=== PATIENT | male | born 1970 | race Caucasian/White ===

== ENCOUNTER 2017-05-26 19:44 | Emergency (ER) | payer OTHER ==
[2017-05-26 19:54] VITALS: BP 142/73; BMI 37.6
--- NOTE | 2017-05-26 20:30 | DR.GENAD ---
HPI - PCP Primary Care Physician: MARQUEZ - Complaint/Symptoms Chief Complaint Doctors Comments: Patient presents with complaint that he vomited x once today with possible tinge of blood, He has a history hepatic failure he is followed by Dr Smith but has not seen him recently Chief Complaint:: NV X 1 TODAY, STATES I THINK IT WAS BLOODY, Self Treatment fo Chief Complaint: NONE - Source History Provided: Patient - Mode of Arrival Mode of Arrival: Ambulatory - Timing Onset of Chief Complaint: 05/26/17 PMH - PMH Past Medical History: Yes Past Medical History: Arthritis, Asthma, GERD, Kidney Stones Past Surgical History: No Surgical History: No History - Family History History of Family Medical Conditions: Yes Family Medical History: Diabetes Mellitus, Hypertension - Social History Does patient currently use any type of tobacco product: Yes Have you used tobacco products in the last 12 months: Yes Type of Tobacco Use: Cigarettes Alcohol Use: None Do you use any recreational Drugs:: No Lives With: Spouse Lives Where: Home - infectious screening In the last 2 months have you had wt loss of >10#?: NO Have you had fever, night sweats or hemotysis?: No Have you traveled outside the country in the last 6 months?: No Isolation: Standard ROS - Review of Systems Eyes: No Symptoms Reported, See HPI ENTM: No Symptoms Reported Respiratoy: No Symptoms Reported Cardiovascular: No Symptoms Reported Gastrointestinal/Abdominal: No Symptoms Reported Genitourinary: No Symptoms Reported Neurological: No Symptoms Reported Musculoskeletal: No Symptoms Reported Integumentary: No Symptoms Reported Hematologic/Lymphatic: No Symptoms Reported Endocrine: No Symptoms Reported Psychiatric: No Symptoms Reported All Other Systems: Reviewed and Negative PE - Vital Signs Vitals: Temperature 98.0 F Pulse Rate 75 Respiratory Rate 16 Blood Pressure [Right Arm] 137/81 Blood Pressure [Left Arm] 149/81 Blood Pressure 142/73 O2 Sat by Pulse Oximetry 100 - General Limitations: No Limitations General Appearance: Alert, In No Apparent Distress - Head Head Exam: Normal Inspection, Atraumatic - Eyes Eye exam: Normal Appearance, PERRL, EOMI - ENT ENT Exam: Normal Exam, Normal Oropharynx External Ear Exam: Normal External Inspection TM/Canal Exam: Bilateral Normal Nose Exam: Normal Nose Exam Mouth Exam: Normal Inspection Throat Exam: Normal Inspection - Neck Neck Exam: Normal Inspection, Full ROM - Chest Chest Inspection: Normal Inspection - Respiratory Respiratory Exam: Normal Lung Sounds Bilat Respiratory Exam: Bilateral Clear to Auscultation - Cardiovascular Cardiovascular Exam: Regular Rate, Normal Rhythm - Abdominal Exam Abdominal Exam: Normal Inspection, Normal Bowel Sounds Abdominal Tenderness: negative: RUQ, RLQ, LUQ, LLQ, Epigastrium, Suprapubic, Diffuse, Mild, Moderate, Severe, Other - Extremities Extremities Exam: Normal Inspection, Full ROM - Back Back Exam: Normal Inspection - Neurologic Neurological Exam: Alert, Oriented X3, CN II-XII Intact - Psychiatric Psychiatric Exam: Normal Affect - Skin Skin Exam: Warm, Dry ROR - Labs Reviewed Laboratory Results Reviewed?: Yes (ammonia 219) Result Diagrams: 05/26/17 20:38 05/26/17 20:38 Laboratory: WBC 4.8 X10^3/uL (3.6-10.0) 05/26/17 20:38 RBC 2.95 X10^6/uL (4.7-6.0) L 05/26/17 20:38 Hgb 10.6 g/dL (13.5-18.0) L 05/26/17 20:38 Hct 30.2 % (42.0-54.0) L 05/26/17 20:38 MCV 102.3 fL (80.0-100.0) H 05/26/17 20:38 MCH 35.9 pg (27.0-34.0) H 05/26/17 20:38 MCHC 35.1 g/dL (33.0-35.0) H 05/26/17 20:38 RDW 17.7 % (11.6-16.5) H 05/26/17 20:38 Plt Count 57 X10^3/uL (150.0-450.0) L 05/26/17 20:38 Plt Count Comment Cancelled 05/26/17 20:38 MPV 8.5 fL (7.4-11.0) 05/26/17 20:38 Neut % 52.0 % (42.0-75.0) 05/26/17 20:38 Lymph % 33.2 % (21.0-51.0) 05/26/17 20:38 [place] % 8.7 % (0.0-13.0) 05/26/17 20:38 Eos % 4.8 % (0.9-2.9) H 05/26/17 20:38 Baso % 1.3 % (0.2-1.0) H 05/26/17 20:38 Neut # 2.5 x10^3/uL (2.2-4.8) 05/26/17 20:38 Lymph # 1.6 X10^3/uL (1.3-2.9) 05/26/17 20:38 [place] # 0.4 x10^3/uL (0.3-0.8) 05/26/17 20:38 Eos # 0.2 x10^3/uL (0.0-0.2) 05/26/17 20:38 Baso # 0.1 X10^3/uL (0.0-0.1) 05/26/17 20:38 Absolute Nucleated RBC 0.1 /100WBC 05/26/17 20:38 Nucleated RBCs Cancelled 05/26/17 20:38 Atypical Lymphocytes Cancelled 05/26/17 20:38 Blast Cells Cancelled 05/26/17 20:38 Smudge Cells Cancelled 05/26/17 20:38 Toxic Granulation Cancelled 05/26/17 20:38 Dohle Bodies Cancelled 05/26/17 20:38 Dilip Rods Cancelled 05/26/17 20:38 Plt Clumps, EDTA Cancelled 05/26/17 20:38 Giant Platelets Cancelled 05/26/17 20:38 Plt Morphology Comment Cancelled 05/26/17 20:38 RBC Morphology Cancelled 05/26/17 20:38 Dimorphic RBCs Cancelled 05/26/17 20:38 Polychromasia Cancelled 05/26/17 20:38 Hypochromasia Cancelled 05/26/17 20:38 Poikilocytosis Cancelled 05/26/17 20:38 Basophilic Stippling Cancelled 05/26/17 20:38 Anisocytosis Cancelled 05/26/17 20:38 Microcytosis Cancelled 05/26/17 20:38 Macrocytosis Cancelled 05/26/17 20:38 Spherocytes Cancelled 05/26/17 20:38 Pappenheimer Bodies Cancelled 05/26/17 20:38 Sickle Cells Cancelled 05/26/17 20:38 Target Cells Cancelled 05/26/17 20:38 Tear Drop Cells Cancelled 05/26/17 20:38 Ovalocytes Cancelled 05/26/17 20:38 Stomatocytes Cancelled 05/26/17 20:38 Helmet Cells Cancelled 05/26/17 20:38 [employer] Bodies Cancelled 05/26/17 20:38 [place] Rings Cancelled 05/26/17 20:38 Orgas Cells Cancelled 05/26/17 20:38 Crenated Cell Cancelled 05/26/17 20:38 Acanthocytes (Spur) Cancelled 05/26/17 20:38 Rouleaux Cancelled 05/26/17 20:38 Schistocytes Cancelled 05/26/17 20:38 Sodium 139 mmol/L (136-145) 05/26/17 20:38 Corrected Sodium TNP 05/26/17 20:38 Potassium 4.2 mmol/L (3.5-5.1) 05/26/17 20:38 Chloride 110 mmol/L (98-107) H 05/26/17 20:38 Carbon Dioxide 22.5 mmol/L (21-32) 05/26/17 20:38 BUN 12 mg/dL (7-18) 05/26/17 20:38 Creatinine 1.73 mg/dL (0.70-1.30) H 05/26/17 20:38 Est GFR (MDRD) Af Amer 55 (>60) L 05/26/17 20:38 Est GFR (MDRD) Non-Af 45 (>60) L 05/26/17 20:38 Glucose 106 mg/dL (65-99) H 05/26/17 20:38 Calcium 8.5 mg/dL (8.5-10.1) 05/26/17 20:38 Corrected Calcium 9.8 mg/dL (8.5-10.1) 05/26/17 20:38 Total Bilirubin 3.60 mg/dL (0.2-1.0) H 05/26/17 20:38 AST 69 Units/L (15-37) H 05/26/17 20:38 ALT 30 Units/L (12-78) 05/26/17 20:38 Alkaline Phosphatase 222 Units/L (46-116) H 05/26/17 20:38 Ammonia 219 umol/L (11-32) H 05/26/17 20:38 Total Protein 7.0 g/dL (6.4-8.2) 05/26/17 20:38 Albumin 2.4 g/dL (3.4-5.0) L 05/26/17 20:38 Globulin 4.6 g/dL (2.5-4.5) H 05/26/17 20:38 Albumin/Globulin Ratio 0.5 Ratio (1.1-2.1) L 05/26/17 20:38 - EKG [place]: Normal Rhythm: NSR Block: None Hypertrophy: None ST: Normal - Diagnosis Discharge Problem: Chronic liver failure Qualifiers: Hepatic coma status: without hepatic coma Qualified Code(s): K72.10 - Chronic hepatic failure without coma - Discharge Plan Condition: Stable - Follow ups/Referrals Follow ups/Referrals: TANYA MARQUEZ [Primary Care Provider] - 3 days - Instructions
[2017-05-26 21:01] LABS: AMMONIA 219 umol/L (11-32)
[2017-05-26 21:02] LABS: ALANINE AMINOTRANSFERASE 30 Units/L (12-78); ALBUMIN 2.4 g/dL (3.4-5.0); ALKALINE PHOSPHATASE 222 Units/L (46-116); ASPARTATE AMINO TRANSFERASE 69 Units/L (15-37); BLOOD UREA NITROGEN 12 mg/dL (7-18); CALCIUM 8.5 mg/dL (8.5-10.1); CARBON DIOXIDE 22.5 mmol/L (21-32); CHLORIDE 110 mmol/L (98-107); COR CA(FOR HYPOALB) 9.8 mg/dL (8.5-10.1); CREATININE 1.73 mg/dL (0.70-1.30); SODIUM 139 mmol/L (136-145); eGFR BLACK RACES 55 (>60); eGFR NON BLACK RACES 45 (>60)
[2017-05-26 21:16] LABS: BASOPHILS # (AUTO) 0.1 X10^3/uL (0.0-0.1); BASOPHILS % (AUTO) 1.3 % (0.2-1.0); EOSINOPHILS # (AUTO) 0.2 x10^3/uL (0.0-0.2); EOSINOPHILS % (AUTO) 4.8 % (0.9-2.9); HEMATOCRIT 30.2 % (42.0-54.0); HEMOGLOBIN 10.6 g/dL (13.5-18.0); LYMPHOCYTES # (AUTO) 1.6 X10^3/uL (1.3-2.9); LYMPHOCYTES % (AUTO) 33.2 % (21.0-51.0); MEAN CORPUSCULAR HEMOGLOBIN 35.9 pg (27.0-34.0); MEAN CORPUSCULAR HGB CONC 35.1 g/dL (33.0-35.0); MEAN CORPUSCULAR VOLUME 102.3 fL (80.0-100.0); MEAN PLATELET VOLUME 8.5 fL (7.4-11.0); MONOCYTES # (AUTO) 0.4 x10^3/uL (0.3-0.8); MONOCYTES % (AUTO) 8.7 % (0.0-13.0); NEUTROPHILS # (AUTO) 2.5 x10^3/uL (2.2-4.8); RED BLOOD COUNT 2.95 X10^6/uL (4.7-6.0); RED CELL DISTRIBUTION WIDTH 17.7 % (11.6-16.5); WHITE BLOOD COUNT 4.8 X10^3/uL (3.6-10.0)
[2017-05-26 21:17] LABS: PLATELET COUNT 57 X10^3/uL (150.0-450.0)
[2017-05-26] MEDS ORDERED: CHRONULAC PO ONE (21:25)
[2017-05-27] MEDS ORDERED: CHRONULAC PO SCH (09:00)
== END 2017-05-26 22:40 | disposition home or self-care (01) ==
LOC: ER 19:57
DX: K72.10 Chronic hepatic failure without coma (principal)
CPT/HCPCS: 36415; 80053; 82140; 85025; 99282

== ENCOUNTER 2017-06-02 22:29 | Emergency (ER) | payer OTHER ==
[2017-06-02 22:37] VITALS: BP 117/71; BMI 34.9
--- NOTE | 2017-06-02 23:27 | DR.GENAD ---
HPI - PCP Primary Care Physician: marquez - Complaint/Symptoms Chief Complaint Doctors Comments: Patient states that fell to floor while at home and injured his left chest wall. He reports to pain to palpation Chief Complaint:: pain in left chest wall - Source History Provided: Patient - Mode of Arrival Mode of Arrival: Ambulatory - Timing Onset of Chief Complaint: 05/30/17 PMH - PMH Past Medical History: Yes Past Medical History: Arthritis, Asthma, GERD, Kidney Stones, Liver Disease Past Surgical History: Yes Surgical History: No History - Family History History of Family Medical Conditions: Yes Family Medical History: Diabetes Mellitus, Hypertension - Social History Does patient currently use any type of tobacco product: No Have you used tobacco products in the last 12 months: No Type of Tobacco Use: Cigarettes Does any household member use tobacco: No Alcohol Use: None Do you use any recreational Drugs:: No Lives With: Family Lives Where: Home - infectious screening In the last 2 months have you had wt loss of >10#?: NO Have you had fever, night sweats or hemotysis?: No Have you traveled outside the country in the last 6 months?: No Isolation: Standard ROS - Review of Systems Eyes: No Symptoms Reported ENTM: No Symptoms Reported Respiratoy: No Symptoms Reported Cardiovascular: No Symptoms Reported Gastrointestinal/Abdominal: No Symptoms Reported Genitourinary: No Symptoms Reported Neurological: No Symptoms Reported Musculoskeletal: No Symptoms Reported Integumentary: No Symptoms Reported Hematologic/Lymphatic: No Symptoms Reported Endocrine: No Symptoms Reported Psychiatric: No Symptoms Reported All Other Systems: Reviewed and Negative PE - Vital Signs Vitals: Temperature 97.5 F Pulse Rate 81 Respiratory Rate 17 Blood Pressure [Right Arm] 137/81 Blood Pressure [Left Arm] 149/81 Blood Pressure 117/71 O2 Sat by Pulse Oximetry 99 - General Limitations: No Limitations General Appearance: Alert, In No Apparent Distress - Head Head Exam: Normal Inspection, Atraumatic - Eyes Eye exam: Normal Appearance, PERRL, EOMI - ENT ENT Exam: Normal Exam External Ear Exam: Normal External Inspection TM/Canal Exam: Bilateral Normal Nose Exam: Normal Nose Exam Mouth Exam: Normal Inspection Throat Exam: Normal Inspection - Neck Neck Exam: Normal Inspection, Trachea Midline - Chest Chest Inspection: Normal Inspection - Respiratory Respiratory Exam: Normal Lung Sounds Bilat Respiratory Exam: Bilateral Clear to Auscultation - Cardiovascular Cardiovascular Exam: Regular Rate, Normal Rhythm - Abdominal Exam Abdominal Exam: Normal Inspection, Normal Bowel Sounds Abdominal Tenderness: negative: RUQ, RLQ, LUQ, LLQ, Epigastrium, Suprapubic, Diffuse, Mild, Moderate, Severe, Other - Extremities Extremities Exam: Normal Inspection, Full ROM - Back Back Exam: Normal Inspection, Full ROM - Neurologic Neurological Exam: Alert, Oriented X3, CN II-XII Intact - Psychiatric Psychiatric Exam: Normal Affect, Normal Mood - Skin Skin Exam: Warm, Dry, Intact ROR - XRAY XRAY Interpreted by: Radiologist (Chest: negative) - Diagnosis Discharge Problem: Contusion of left chest wall Qualifiers: Encounter type: initial encounter Qualified Code(s): S20.212A - Contusion of left front wall of thorax, initial encounter - Discharge Plan Condition: Stable - Follow ups/Referrals Follow ups/Referrals: TANYA MARQUEZ [Primary Care Provider] - 3 days - Instructions
--- NOTE | 2017-06-03 00:02 | RAD ---
HISTORY: left rib pain Study: Two views of the chest Comparison: None Findings: The trachea is midline. The cardiac silhouette is unremarkable. There is bandlike atelectasis versus scarring in the left lower lobe. The remaining lungs are clear without focal infiltrate or effusion. The bony thorax is unremarkable. IMPRESSION: 1. No acute cardiopulmonary disease. Reported By:
== END 2017-06-03 00:17 | disposition home or self-care (01) ==
LOC: ER 22:44
DX: S20.212A Contusion of left front wall of thorax, initial encounter (principal); W19.XXXA Unspecified fall, initial encounter; Y92.009 Unspecified place in unspecified non-institutional (private) residence as the place of occurrence of the external cause
CPT/HCPCS: 71020; 99282

== ENCOUNTER 2017-06-17 08:54 | Emergency (ER) | payer OTHER ==
[2017-06-17 09:04] VITALS: BP 140/67; BMI 34.9
[2017-06-17] MEDS ORDERED: TORADOL 60 MG VIAL ONE (09:19)
[2017-06-17] MEDS ORDERED: TORADOL 60 MG VIAL IM ONE (09:19)
--- NOTE | 2017-06-17 09:26 | DR.EXTPAIN ---
HPI - Time seen Time seen: 09:17 - PCP Primary Care Physician: JIMMY CALZADA - Complaint/Symptoms Chief Complaint Doctor Comments: Patient c/o right knee pain s/p falling to the floor on last night. He admits to pain being sharp, severity 10, modifying factor ambulation Chief Complaint:: PT C/O HAVING A NAIL IN THE FLOOR AT HOME AND IT GRABBED AHOLD OF HIS SOCK LAST NIGHT AND HE HIT THE FLOOR AND HE IS C/O RIGHT KNEE PAIN AND BRUISING.. - Source History Provided: Patient - Mode of arrival Mode of Arrival: Ambulatory - Timing Onset of Chief Complaint: 06/16/17 PMH - PMH Past Medical History: Yes Past Medical History: Arthritis, Asthma, GERD, Kidney Stones, Liver Disease Past Medical History Comment: CIROSIS OF THE LIVER AND HE NEEDS A LIVER TRANSPLANT. Past Surgical History: No Surgical History: No History - Family History History of Family Medical Conditions: No Family Medical History: Diabetes Mellitus, Hypertension - Social History Does patient currently use any type of tobacco product: Yes Have you used tobacco products in the last 12 months: Yes Type of Tobacco Use: Cigarettes Does any household member use tobacco: No Alcohol Use: None Do you use any recreational Drugs:: No Lives With: Family Lives Where: Home - infectious screening In the last 2 months have you had wt loss of >10#?: NO Have you had fever, night sweats or hemotysis?: No Have you traveled outside the country in the last 6 months?: No Isolation: Standard ROS - Review of Systems Eyes: No Symptoms Reported ENTM: No Symptoms Reported Respiratoy: No Symptoms Reported Cardiovascular: No Symptoms Reported Gastrointestinal/Abdominal: No Symptoms Reported Genitourinary: No Symptoms Reported Neurological: No Symptoms Reported Musculoskeletal: Knee (right oaub) Integumentary: No Symptoms Reported Hematologic/Lymphatic: No Symptoms Reported Endocrine: No Symptoms Reported Psychiatric: No Symptoms Reported All Other Systems: Reviewed and Negative PE - Vital Signs Vitals: Temperature 97.6 F Pulse Rate 67 Respiratory Rate 18 Blood Pressure [Right Arm] 137/81 Blood Pressure [Left Arm] 149/81 Blood Pressure 140/67 O2 Sat by Pulse Oximetry 100 - General Limitations: No Limitations General Appearance: Alert, In Distress - Head Head Exam: Normal Inspection, Atraumatic - Eyes Eye exam: Normal Appearance, PERRL, EOMI - ENT ENT Exam: Normal Exam - Neck Neck Exam: Normal Inspection, Full ROM - Chest Chest Inspection: Normal Inspection - Respiratory Respiratory Exam: Normal Lung Sounds Bilat Respiratory Exam: Bilateral Clear to Auscultation - Cardiovascular Cardiovascular Exam: Regular Rate, Normal Rhythm - Abdominal Exam Abdominal Exam: Normal Inspection, Normal Bowel Sounds Abdominal Tenderness: negative: RUQ, RLQ, LUQ, LLQ, Epigastrium, Suprapubic, Diffuse, Mild, Moderate, Severe, Other - Extremities Extremities Exam: Normal Inspection, Full ROM - Upper Extremities Shoulder Exam: Normal Inspection Arm Exam: negative: Normal Inspection, Full ROM, Tenderness, Swelling, Abrasion , Laceration, Ecchymosis, Deformity, Crepitus, Erythema, Other Elbow Exam: Normal Inspection Forearm Exam: Normal Inspection, Full ROM Hand Exam: Normal Inspection Neuromotor Exam: Normal Exam Neurosensory Exam: Normal Exam Hand Tendon Exam: Flexor Digitorium Profundus (Location) Upper Ext. Vascular Exam: Capillary Refill, Radial Pulse - Lower Extremities Hip/Pelvis Exam: Normal Inspection, Full ROM Upper Leg Exam: Normal Inspection, Full ROM Knee Exam: Swelling. negative: Laceration, Erythema Lower Leg Exam: Normal Inspection Ankle Exam: Normal Inspection, Full ROM Foot/Toe Exam: Normal Inspection, Full ROM Neurovascular/Tendon Exam: Normal Capillary Refill Gait Exam: Observed and Normal - Back Back Exam: Normal Inspection, Full ROM - Neurological Neurological Exam: Alert, Oriented X3, CN II-XII Intact - Psychiatric Psychiatric Exam: Normal Affect - Skin Skin Exam: Warm, Dry, Intact Type of Lesion: Rash Distribution: Generalized Description: Size ROR - XRAY XRAY Interpreted by: Self (knee contusion) - Diagnosis Discharge Problem: Contusion of knee, right Qualifiers: Encounter type: initial encounter Qualified Code(s): S80.01XA - Contusion of right knee, initial encounter - Discharge Plan Condition: Stable - Follow ups/Referrals Follow ups/Referrals: NFD,None [Primary Care Provider] - 3 days - Instructions
--- NOTE | 2017-06-17 10:36 | RAD ---
HISTORY: Fall this a.m.. Patient complains of right knee pain Study: Two-view right knee Comparison: 11/27/2015 Findings: No fracture or dislocation is seen. There is no significant joint effusion. Degenerative changes and chondromalacia of the patella are again identified. Articular spaces are well maintained. IMPRESSION: Degenerative changes and chondromalacia of the patella. No acute abnormality is seen. Reported By:
== END 2017-06-17 10:23 | disposition home or self-care (01) ==
LOC: ER 09:06
DX: S80.01XA Contusion of right knee, initial encounter (principal); M22.40 Chondromalacia patellae, unspecified knee; W45.8XXA Other foreign body or object entering through skin, initial encounter; Y92.9 Unspecified place or not applicable
CPT/HCPCS: 73560; 96372; 99282; J1885

== ENCOUNTER → 2017-06-30 | Outpatient (CLI) | payer OTHER ==
[2017-06-17 09:04] VITALS: BP 140/67
[2017-06-30 11:18] LABS: ALBUMIN 2.4 g/dL (3.4-5.0); CALCIUM 8.5 mg/dL (8.5-10.1); COR CA(FOR HYPOALB) 9.8 mg/dL (8.5-10.1); CREATININE 1.62 mg/dL (0.70-1.30); TOTAL PROTEIN 7.3 g/dL (6.4-8.2)
[2017-06-30 11:33] LABS: BASOPHILS # (AUTO) 0.1 X10^3/uL (0.0-0.1); BASOPHILS % (AUTO) 1.2 % (0.2-1.0); EOSINOPHILS # (AUTO) 0.2 x10^3/uL (0.0-0.2); EOSINOPHILS % (AUTO) 4.9 % (0.9-2.9); HEMATOCRIT 34.2 % (42.0-54.0); HEMOGLOBIN 11.9 g/dL (13.5-18.0); LYMPHOCYTES # (AUTO) 1.5 X10^3/uL (1.3-2.9); LYMPHOCYTES % (AUTO) 35.5 % (21.0-51.0); MEAN CORPUSCULAR HEMOGLOBIN 36.3 pg (27.0-34.0); MEAN CORPUSCULAR HGB CONC 34.9 g/dL (33.0-35.0); MEAN CORPUSCULAR VOLUME 103.9 fL (80.0-100.0); MEAN PLATELET VOLUME 9.2 fL (7.4-11.0); MONOCYTES # (AUTO) 0.3 x10^3/uL (0.3-0.8); MONOCYTES % (AUTO) 7.6 % (0.0-13.0); NEUTROPHILS # (AUTO) 2.2 x10^3/uL (2.2-4.8); NEUTROPHILS % (AUTO) 50.8 % (42.0-75.0); PLATELET COUNT 77 X10^3/uL (150.0-450.0); RED BLOOD COUNT 3.29 X10^6/uL (4.7-6.0); RED CELL DISTRIBUTION WIDTH 17.1 % (11.6-16.5); WHITE BLOOD COUNT 4.3 X10^3/uL (3.6-10.0)
[2017-06-30 11:58] LABS: PLATELET MORPHOLOGY COMMENT NORMAL (NORMAL)
== END ==
LOC: LAB 10:41
PROVIDERS: ATTEND Internal Medicine Gastroenterology
DX: K74.69 Other cirrhosis of liver (principal)
CPT/HCPCS: 36415; 80053; 82140; 85025

== ENCOUNTER 2017-07-10 14:44 | Emergency (ER) | payer OTHER ==
[2017-07-10 15:00] VITALS: BP 96/68; BMI 36.9
--- NOTE | 2017-07-10 16:12 | DR.GENAD ---
HPI - PCP Primary Care Physician: TANYA MARQUEZ - Complaint/Symptoms Chief Complaint:: PT STATES HE HAS A FEVER THAT STARTED LAST NIGHT AND HE IS ACHING ALL OVER. Self Treatment fo Chief Complaint: PTS STATES HE TOOK TWO EXTRA STRENGTH TYLENOL THIS MORNING ABOUT 8AM. PTS STATES FEVER WAS 99.1 BEFORE HE TOOK TYLENOL - Source History Provided: Patient - Mode of Arrival Mode of Arrival: Ambulatory - Timing Onset of Chief Complaint: 07/09/17 PMH - PMH Past Medical History: Yes Past Medical History: Arthritis, Asthma, Cirrhosis, GERD, Kidney Stones, Liver Disease Past Surgical History: No Surgical History: No History - Family History History of Family Medical Conditions: Yes Family Medical History: Diabetes Mellitus, Hypertension - Social History Does patient currently use any type of tobacco product: Yes Have you used tobacco products in the last 12 months: Yes Type of Tobacco Use: Cigarettes How many years tobacco product used: 30 Does any household member use tobacco: No Alcohol Use: None Do you use any recreational Drugs:: No Lives With: Spouse Lives Where: Home - infectious screening In the last 2 months have you had wt loss of >10#?: NO Have you had fever, night sweats or hemotysis?: No Have you traveled outside the country in the last 6 months?: No Isolation: Standard ROS - Review of Systems Eyes: No Symptoms Reported, Eye Pain ENTM: Hearing Loss Cardiovascular: No Symptoms Reported Gastrointestinal/Abdominal: No Symptoms Reported Genitourinary: No Symptoms Reported Neurological: No Symptoms Reported Musculoskeletal: No Symptoms Reported Integumentary: No Symptoms Reported Hematologic/Lymphatic: No Symptoms Reported Endocrine: No Symptoms Reported Psychiatric: No Symptoms Reported All Other Systems: Reviewed and Negative PE - Vital Signs Vitals: Temperature 98.6 F Pulse Rate 90 Respiratory Rate 18 Blood Pressure [Right Arm] 137/81 Blood Pressure [Left Arm] 149/81 Blood Pressure 96/68 O2 Sat by Pulse Oximetry 98 - General Limitations: No Limitations General Appearance: Alert, In No Apparent Distress - Head Head Exam: Normal Inspection, Atraumatic - Eyes Eye exam: Normal Appearance, PERRL, EOMI - ENT ENT Exam: Mucous Membranes Dry External Ear Exam: Normal External Inspection TM/Canal Exam: Bilateral Normal Nose Exam: Normal Nose Exam Mouth Exam: Normal Inspection Throat Exam: Normal Inspection - Neck Neck Exam: Normal Inspection - Chest Chest Inspection: Normal Inspection - Respiratory Respiratory Exam: Normal Lung Sounds Bilat Respiratory Exam: Bilateral Clear to Auscultation - Cardiovascular Cardiovascular Exam: Regular Rate, Normal Rhythm - Abdominal Exam Abdominal Exam: Normal Inspection Abdominal Tenderness: negative: RUQ, RLQ, LUQ, LLQ, Epigastrium, Suprapubic, Diffuse, Mild, Moderate, Severe, Other - Extremities Extremities Exam: Normal Inspection, Full ROM - Back Back Exam: Normal Inspection, Full ROM - Neurologic Neurological Exam: Alert, Oriented X3, CN II-XII Intact - Psychiatric Psychiatric Exam: Normal Affect - Skin Skin Exam: Warm, Dry, Intact Course - Treatment Treatment: IVH - Reevaluation 1st: Improved ROR - Labs Reviewed Result Diagrams: 07/10/17 16:53 07/10/17 16:53 Laboratory: WBC 9.9 X10^3/uL (3.6-10.0) 07/10/17 16:53 RBC 3.10 X10^6/uL (4.7-6.0) L 07/10/17 16:53 Hgb 11.3 g/dL (13.5-18.0) L 07/10/17 16:53 Hct 32.3 % (42.0-54.0) L 07/10/17 16:53 MCV 104.3 fL (80.0-100.0) H 07/10/17 16:53 MCH 36.5 pg (27.0-34.0) H 07/10/17 16:53 MCHC 35.0 g/dL (33.0-35.0) 07/10/17 16:53 RDW 16.9 % (11.6-16.5) H 07/10/17 16:53 Plt Count 59 X10^3/uL (150.0-450.0) L 07/10/17 16:53 Plt Count Comment Decreased (ADEQUATE) 07/10/17 16:53 MPV 9.1 fL (7.4-11.0) 07/10/17 16:53 Neut % 81.8 % (42.0-75.0) H 07/10/17 16:53 Lymph % 9.3 % (21.0-51.0) L 07/10/17 16:53 [place] % 8.4 % (0.0-13.0) 07/10/17 16:53 Eos % 0.1 % (0.9-2.9) L 07/10/17 16:53 Baso % 0.4 % (0.2-1.0) 07/10/17 16:53 Neut # 8.1 x10^3/uL (2.2-4.8) H 07/10/17 16:53 Lymph # 0.9 X10^3/uL (1.3-2.9) L 07/10/17 16:53 [place] # 0.8 x10^3/uL (0.3-0.8) 07/10/17 16:53 Eos # 0.0 x10^3/uL (0.0-0.2) 07/10/17 16:53 Baso # 0.0 X10^3/uL (0.0-0.1) 07/10/17 16:53 Absolute Nucleated RBC 0.1 /100WBC 07/10/17 16:53 Plt Morphology Comment Normal (NORMAL) 07/10/17 16:53 RBC Morphology Abnormal (NORMAL) 07/10/17 16:53 Hypochromasia Slight A 07/10/17 16:53 Poikilocytosis Slight A 07/10/17 16:53 Microcytosis Slight A 07/10/17 16:53 Sodium 137 mmol/L (136-145) 07/10/17 16:53 Corrected Sodium TNP 07/10/17 16:53 Potassium 4.4 mmol/L (3.5-5.1) 07/10/17 16:53 Chloride 105 mmol/L (98-107) 07/10/17 16:53 Carbon Dioxide 24.4 mmol/L (21-32) 07/10/17 16:53 BUN 19 mg/dL (7-18) H 07/10/17 16:53 Creatinine 2.75 mg/dL (0.70-1.30) H 07/10/17 16:53 Est GFR (MDRD) Af Amer 32 (>60) L 07/10/17 16:53 Est GFR (MDRD) Non-Af 26 (>60) L 07/10/17 16:53 Glucose 98 mg/dL (65-99) 07/10/17 16:53 Calcium 8.7 mg/dL (8.5-10.1) 07/10/17 16:53 Corrected Calcium 10.1 mg/dL (8.5-10.1) 07/10/17 16:53 Total Bilirubin 5.90 mg/dL (0.2-1.0) H 07/10/17 16:53 AST 89 Units/L (15-37) H 07/10/17 16:53 ALT 31 Units/L (12-78) 07/10/17 16:53 Alkaline Phosphatase 148 Units/L (46-116) H 07/10/17 16:53 Total Protein 7.0 g/dL (6.4-8.2) 07/10/17 16:53 Albumin 2.2 g/dL (3.4-5.0) L 07/10/17 16:53 Globulin 4.8 g/dL (2.5-4.5) H 07/10/17 16:53 Albumin/Globulin Ratio 0.5 Ratio (1.1-2.1) L 07/10/17 16:53 - Diagnosis Discharge Problem: Systemic viral illness, Gastroenteritis - Discharge Plan Condition: Stable - Follow ups/Referrals Follow ups/Referrals: TANYA MARQUEZ [Primary Care Provider] - 3 days - Instructions
[2017-07-10] MEDS ORDERED: ZOFRAN INJ 4 MG VIAL IVP ONE (16:39)
[2017-07-10] MEDS ORDERED: NS 1000 ML 1,000 ML IV ONE ×2 (16:39→17:46)
[2017-07-10] MEDS ORDERED: ZOFRAN INJ 4 MG VIAL ONE (16:41)
[2017-07-10] MEDS ORDERED: NS 1000 ML 1,000 ML ONE ×2 (16:41→17:47)
[2017-07-10 17:09] LABS: BASOPHILS % (AUTO) 0.4 % (0.2-1.0); EOSINOPHILS % (AUTO) 0.1 % (0.9-2.9); HEMATOCRIT 32.3 % (42.0-54.0); HEMOGLOBIN 11.3 g/dL (13.5-18.0); LYMPHOCYTES # (AUTO) 0.9 X10^3/uL (1.3-2.9); LYMPHOCYTES % (AUTO) 9.3 % (21.0-51.0); MEAN CORPUSCULAR HEMOGLOBIN 36.5 pg (27.0-34.0); MEAN CORPUSCULAR VOLUME 104.3 fL (80.0-100.0); MEAN PLATELET VOLUME 9.1 fL (7.4-11.0); MONOCYTES # (AUTO) 0.8 x10^3/uL (0.3-0.8); MONOCYTES % (AUTO) 8.4 % (0.0-13.0); NEUTROPHILS # (AUTO) 8.1 x10^3/uL (2.2-4.8); NEUTROPHILS % (AUTO) 81.8 % (42.0-75.0); PLATELET COUNT 59 X10^3/uL (150.0-450.0); RED CELL DISTRIBUTION WIDTH 16.9 % (11.6-16.5); WHITE BLOOD COUNT 9.9 X10^3/uL (3.6-10.0)
[2017-07-10 17:19] LABS: ALANINE AMINOTRANSFERASE 31 Units/L (12-78); ALBUMIN 2.2 g/dL (3.4-5.0); ALKALINE PHOSPHATASE 148 Units/L (46-116); ASPARTATE AMINO TRANSFERASE 89 Units/L (15-37); BLOOD UREA NITROGEN 19 mg/dL (7-18); CALCIUM 8.7 mg/dL (8.5-10.1); CARBON DIOXIDE 24.4 mmol/L (21-32); CHLORIDE 105 mmol/L (98-107); COR CA(FOR HYPOALB) 10.1 mg/dL (8.5-10.1); CREATININE 2.75 mg/dL (0.70-1.30); SODIUM 137 mmol/L (136-145); eGFR BLACK RACES 32 (>60); eGFR NON BLACK RACES 26 (>60)
[2017-07-10 17:23] LABS: HYPOCHROMASIA SLIGHT; MICROCYTOSIS SLIGHT; PLATELET MORPHOLOGY COMMENT NORMAL (NORMAL); POIKILOCYTOSIS SLIGHT
== END 2017-07-10 18:16 | disposition home or self-care (01) ==
LOC: ER 14:59
DX: K52.89 Other specified noninfective gastroenteritis and colitis (principal); B34.8 Other viral infections of unspecified site
CPT/HCPCS: 36415; 80053; 85025; 96365; 96367; 96374; 99282; 99283; A4222; J2405

== ENCOUNTER → 2017-07-18 | Outpatient (CLI) | payer OTHER ==
--- NOTE | 2017-07-18 10:39 | US ---
History: Cirrhosis Study: Ultrasound of the right upper quadrant of the abdomen Findings: The liver measures 13 x 7 x 9 cm without focal mass. The gallbladder is normal in size with multiple stones. There is no wall thickening. The common hepat ic duct measures 5.2 mm. There is no free fluid. The IVC is patent. The right kidney measures 10 x 4.5 x 5 cm without hydronephrosis. There is no pleu ral effusion. Impression: Cholelithiasis Reported By:
== END | disposition home or self-care (01) | DRG 434 ==
LOC: RAD 08:04
PROVIDERS: ATTEND Internal Medicine Gastroenterology
DX: K74.69 Other cirrhosis of liver (principal); K80.80 Other cholelithiasis without obstruction
CPT/HCPCS: 76705

== ENCOUNTER 2017-08-18 08:57 | Emergency (ER) | payer MEDICAID, OTHER ==
[2017-08-18 09:03] VITALS: BMI 36.0
--- NOTE | 2017-08-18 09:15 | DR.GENAD ---
HPI - PCP Primary Care Physician: JIMMY - Complaint/Symptoms Chief Complaint Doctors Comments: Patient presents with complaint of abdominal pain onset since yesterday. Admits to blood tinged vomiting x one, no diarrhea low grade temp. He has a history of liver failure, take lactulose daily. BP on arrival 85/51. Chief Complaint:: Patient c/o generalized abd pain that started last night. patient denies eating anything different. patient states I am waiting for a liver transplant and dr marquez has been giving me oxycodone. I also take lactulose - Source History Provided: Patient - Mode of Arrival Mode of Arrival: Ambulatory - Timing Onset of Chief Complaint: 08/17/17 PMH - PMH Past Medical History: Yes Past Medical History: Arthritis, Asthma, Cirrhosis, GERD, Kidney Stones, Liver Disease Past Surgical History: No Surgical History: No History - Family History History of Family Medical Conditions: Yes Family Medical History: Diabetes Mellitus, Hypertension - Social History Does patient currently use any type of tobacco product: Yes Have you used tobacco products in the last 12 months: Yes Type of Tobacco Use: Cigarettes Does any household member use tobacco: No Do you use any recreational Drugs:: No Lives Where: Home - infectious screening In the last 2 months have you had wt loss of >10#?: NO Have you had fever, night sweats or hemotysis?: No Have you traveled outside the country in the last 6 months?: No Isolation: Standard ROS - Review of Systems Eyes: No Symptoms Reported ENTM: No Symptoms Reported Respiratoy: No Symptoms Reported Cardiovascular: No Symptoms Reported Gastrointestinal/Abdominal: Abdominal Pain, Nausea, Vomiting Genitourinary: No Symptoms Reported Neurological: No Symptoms Reported Musculoskeletal: No Symptoms Reported Integumentary: No Symptoms Reported Hematologic/Lymphatic: No Symptoms Reported Endocrine: No Symptoms Reported Psychiatric: No Symptoms Reported All Other Systems: Reviewed and Negative PE - Vital Signs Vitals: Temperature 100 F Pulse Rate [Apical] 109 Pulse Rate 102 Respiratory Rate 14 Blood Pressure [Right Arm] 87/46 Blood Pressure [Left Arm] 149/81 Blood Pressure 84/53 O2 Sat by Pulse Oximetry 100 - General General Appearance: Alert, In No Apparent Distress - Head Head Exam: Normal Inspection - Eyes Eye exam: Normal Appearance, PERRL, EOMI - ENT ENT Exam: Normal Exam External Ear Exam: Normal External Inspection TM/Canal Exam: Bilateral Normal Nose Exam: Normal Nose Exam Mouth Exam: Normal Inspection Throat Exam: Normal Inspection - Neck Neck Exam: Normal Inspection - Chest Chest Inspection: Normal Inspection, Symmetric Chest Wall Rise - Respiratory Respiratory Exam: Normal Lung Sounds Bilat Respiratory Exam: Bilateral Clear to Auscultation - Cardiovascular Cardiovascular Exam: Regular Rate - Abdominal Exam Abdominal Exam: Distention, Tenderness, Hypoactive Bowel Sounds Abdominal Tenderness: Diffuse - Extremities Extremities Exam: Normal Inspection - Back Back Exam: Normal Inspection - Neurologic Neurological Exam: Alert, Oriented X3, CN II-XII Intact - Psychiatric Psychiatric Exam: Normal Affect - Skin Skin Exam: Warm, Dry, Intact Course - Consultation Called: 12:20 (Dr Guillermo accpeted patient for further evaluation) Call Returned: 12:15 ROR - Labs Reviewed Result Diagrams: 08/18/17 09:55 08/18/17 09:25 Laboratory: WBC 10.3 X10^3/uL (3.6-10.0) H 08/18/17 09:55 RBC 3.18 X10^6/uL (4.7-6.0) L 08/18/17 09:55 Hgb 11.4 g/dL (13.5-18.0) L 08/18/17 09:55 Hct 32.8 % (42.0-54.0) L 08/18/17 09:55 MCV 103.3 fL (80.0-100.0) H 08/18/17 09:55 MCH 36.0 pg (27.0-34.0) H 08/18/17 09:55 MCHC 34.8 g/dL (33.0-35.0) 08/18/17 09:55 RDW 16.8 % (11.6-16.5) H 08/18/17 09:55 Plt Count 56 X10^3/uL (150.0-450.0) L 08/18/17 09:55 Plt Count Comment Decreased (ADEQUATE) 08/18/17 09:55 MPV 9.5 fL (7.4-11.0) 08/18/17 09:55 Neut % 81.8 % (42.0-75.0) H 08/18/17 09:55 Lymph % 12.0 % (21.0-51.0) L 08/18/17 09:55 [place] % 4.9 % (0.0-13.0) 08/18/17 09:55 Eos % 1.0 % (0.9-2.9) 08/18/17 09:55 Baso % 0.3 % (0.2-1.0) 08/18/17 09:55 Neut # 8.5 x10^3/uL (2.2-4.8) H 08/18/17 09:55 Lymph # 1.2 X10^3/uL (1.3-2.9) L 08/18/17 09:55 [place] # 0.5 x10^3/uL (0.3-0.8) 08/18/17 09:55 Eos # 0.1 x10^3/uL (0.0-0.2) 08/18/17 09:55 Baso # 0.0 X10^3/uL (0.0-0.1) 08/18/17 09:55 Absolute Nucleated RBC 0.2 /100WBC 08/18/17 09:55 Plt Morphology Comment Normal (NORMAL) 08/18/17 09:55 RBC Morphology Normal (NORMAL) 08/18/17 09:55 INR Target Range - 08/18/17 09:25 INR 2.45 (0.8-1.3) H 08/18/17 09:25 PTT 59.9 SECONDS (22.9-36.5) H 08/18/17 09:25 PTT Comment - 08/18/17 09:25 Sodium 140 mmol/L (136-145) 08/18/17 09:25 Corrected Sodium TNP 08/18/17 09:25 Potassium 4.5 mmol/L (3.5-5.1) 08/18/17 09:25 Chloride 110 mmol/L (98-107) H 08/18/17 09:25 Carbon Dioxide 22.1 mmol/L (21-32) 08/18/17 09:25 BUN 13 mg/dL (7-18) 08/18/17 09:25 Creatinine 2.46 mg/dL (0.70-1.30) H 08/18/17 09:25 Est GFR (MDRD) Af Amer 36 (>60) L 08/18/17 09:25 Est GFR (MDRD) Non-Af 30 (>60) L 08/18/17 09:25 Glucose 81 mg/dL (65-99) 08/18/17 09:25 Calcium 8.5 mg/dL (8.5-10.1) 08/18/17 09:25 Corrected Calcium 9.9 mg/dL (8.5-10.1) 08/18/17 09:25 Total Bilirubin 6.60 mg/dL (0.2-1.0) H 08/18/17 09:25 AST 65 Units/L (15-37) H 08/18/17 09:25 ALT 26 Units/L (12-78) 08/18/17 09:25 Alkaline Phosphatase 174 Units/L (46-116) H 08/18/17 09:25 Ammonia 77 umol/L (11-32) H 08/18/17 09:25 Lactate Dehydrogenase 184 Units/L (85-227) 08/18/17 09:25 Creatine Kinase 67 Units/L (39-308) 08/18/17 09:25 CK-MB (CK-2) < 1.0 ng/mL (0-4.0) 08/18/17 09:25 CK/CKMB % Calc 1.5 % (<4) 08/18/17 09:25 Troponin I < 0.02 ng/mL (0-1.5) 08/18/17 09:25 C-Reactive Protein 16.50 mg/L (0-3.0) H 08/18/17 09:25 Total Protein 7.0 g/dL (6.4-8.2) 08/18/17 09:25 Albumin 2.2 g/dL (3.4-5.0) L 08/18/17 09:25 Globulin 4.8 g/dL (2.5-4.5) H 08/18/17 09:25 Albumin/Globulin Ratio 0.5 Ratio (1.1-2.1) L 08/18/17 09:25 H. pylori IgG Antibody Positive (NEGATIVE) A 08/18/17 09:25 - XRAY XRAY Interpreted by: Radiologist (Chest: No acute cardiopulmonary problems) - Diagnosis Discharge Problem: Cholecystitis, chronic, Thrombocytopenia, Hypotensive episode, Probable sepsis , Abdominal pain - Discharge Plan Condition: Stable - Follow ups/Referrals Follow ups/Referrals: TANYA MARQUEZ [Primary Care Provider] - 3 days - Instructions
[2017-08-18] MEDS ORDERED: NS 1000 ML 1,000 ML IV ONE ×2 (09:16→09:34)
--- NOTE | 2017-08-18 09:45 | RAD ---
Examination: Portable AP chest History: Waiting for liver transplant Comparison reference 06/02/2017 Findings: Continued normal heart size with no evidence for acute pulmonary, mediastinal or pleural ab normality. Impression: No active chest abnormality demonstrated. Reported By:
[2017-08-18 09:52] LABS: AMMONIA 77 umol/L (11-32)
[2017-08-18 09:54] LABS: ALANINE AMINOTRANSFERASE 26 Units/L (12-78); ALBUMIN 2.2 g/dL (3.4-5.0); ALKALINE PHOSPHATASE 174 Units/L (46-116); ASPARTATE AMINO TRANSFERASE 65 Units/L (15-37); BLOOD UREA NITROGEN 13 mg/dL (7-18); CALCIUM 8.5 mg/dL (8.5-10.1); CARBON DIOXIDE 22.1 mmol/L (21-32); CHLORIDE 110 mmol/L (98-107); COR CA(FOR HYPOALB) 9.9 mg/dL (8.5-10.1); CREATININE 2.46 mg/dL (0.70-1.30); SODIUM 140 mmol/L (136-145); eGFR BLACK RACES 36 (>60); eGFR NON BLACK RACES 30 (>60)
[2017-08-18 10:04] LABS: CKMB % 1.5 % (<4); CREATINE KINASE 67 Units/L (39-308); CREATINE KINASE MB < 1.0 ng/mL (0-4.0); TROPONIN I < 0.02 ng/mL (0-1.5)
[2017-08-18 10:05] LABS: BASOPHILS % (AUTO) 0.3 % (0.2-1.0); EOSINOPHILS # (AUTO) 0.1 x10^3/uL (0.0-0.2); HEMATOCRIT 32.8 % (42.0-54.0); HEMOGLOBIN 11.4 g/dL (13.5-18.0); LYMPHOCYTES # (AUTO) 1.2 X10^3/uL (1.3-2.9); MEAN CORPUSCULAR HGB CONC 34.8 g/dL (33.0-35.0); MEAN CORPUSCULAR VOLUME 103.3 fL (80.0-100.0); MEAN PLATELET VOLUME 9.5 fL (7.4-11.0); MONOCYTES # (AUTO) 0.5 x10^3/uL (0.3-0.8); MONOCYTES % (AUTO) 4.9 % (0.0-13.0); NEUTROPHILS # (AUTO) 8.5 x10^3/uL (2.2-4.8); NEUTROPHILS % (AUTO) 81.8 % (42.0-75.0); PLATELET COUNT 56 X10^3/uL (150.0-450.0); RED BLOOD COUNT 3.18 X10^6/uL (4.7-6.0); RED CELL DISTRIBUTION WIDTH 16.8 % (11.6-16.5); WHITE BLOOD COUNT 10.3 X10^3/uL (3.6-10.0)
[2017-08-18 10:10] LABS: PLATELET MORPHOLOGY COMMENT NORMAL (NORMAL)
[2017-08-18] MEDS ORDERED: ZOFRAN INJ 4 MG VIAL IVP ONE (10:56)
[2017-08-18] MEDS ORDERED: NS 1000 ML 1,000 ML IV SCH (11:00)
--- NOTE | 2017-08-18 11:02 | CT ---
History: Cirrhosis and renal failure and abdominal pain Study: CT of the abdomen and pelvis without contrast. Sagittal and coronal reformations were provided . Comparison: April 11, 2016 Findings: The spleen measures at least 17 cm sagittal length. The liver is relatively small with a mi ldly lobular contour. There are varices in the hilum of the spleen and extending in the ventral abdom en. There is mild ascites and prominent stranding of mesenteric fat planes. The pancreas and adrenal glands remain unremarkable. There is a tiny calculus in the lower pole of the left kidney. There is no hydronephrosis. There is a tiny calculus in the upper pole of the right kidney. The gallbladder is packed full of numerous tiny stones. There is thickening of the wall of the gallbladder up to 7 mm. There is no abnormal bowel distention. There is no significant bony abnormality. Impression: 1. Cholelithiasis as before but with new gallbladder wall thickening suggesting possible cholecystiti s 2. Cirrhosis with splenomegaly and mild ascites and portal hypertension 3. New prominent stranding of mesenteric fat planes that may reflect a mesenteritis or panniculitis 4. Tiny punctate bilateral renal calculi without hydronephrosis Reported By:
[2017-08-18] MEDS ORDERED: DOPAMINE IV PREMIX 400 MG/250 ML 400 MG/250 ML BAG IV PRN (11:12)
[2017-08-18] MEDS ORDERED: MORPHINE SULFATE INJ 4 MG IVP ONE (11:32)
[2017-08-18] MEDS ORDERED: MORPHINE SULFATE INJ 4 MG ONE (11:39)
[2017-08-18] MEDS ORDERED: PHENERGAN INJ 25 MG IV ONE (12:07)
[2017-08-18] MEDS ORDERED: ZOSYN VIAL 2.25 GM IV SCH (13:00)
[2017-08-18 13:29] VITALS: BP 115/53
== END 2017-08-18 13:27 | disposition short-term general hospital (02) ==
LOC: ER 09:28
DX: K81.9 Cholecystitis, unspecified (principal); D69.6 Thrombocytopenia, unspecified; I10 Essential (primary) hypertension; R10.84 Generalized abdominal pain; B96.81 Helicobacter pylori [H. pylori] as the cause of diseases classified elsewhere
CPT/HCPCS: 36415; 71010; 74176; 80053; 82140; 82550; 82553; 83615; 84484; 85025; 85610; 85730; 86140; 86677; 93005; 93010; 93041; 96365; 96367; 96374; 96375; 99284; 99285; A4222; J1265; J2270; J2405; J2543; J2550

== ENCOUNTER 2017-10-08 11:48 | Observation (INO) | payer OTHER ==
[2017-10-08 12:04] VITALS: BMI 34.8
[2017-10-08] MEDS ORDERED: ZOFRAN INJ 4 MG VIAL IVP ONE (12:26)
[2017-10-08] MEDS ORDERED: NS 1000 ML 1,000 ML IV ONE (12:27)
--- NOTE | 2017-10-08 12:32 | DR.GENAD ---
HPI - PCP Primary Care Physician: JIMMY - Complaint/Symptoms Chief Complaint Doctors Comments: Patient is complaining of diffuse abdominal pain for the past 24 hours getting worst this morning. Patient states he is hurting all over and denies cold, cough, diarrhea but has been having fever and chills as related by family member. States he is a patient of Dr. Marquez and has a history or cirrhosis of his liver due to fatty liver and sees Dr. Malik for his liver. He had similar problems 14 Aug 21 and they thought he had gallbladder problems and sent him to [facility] and they said he had gallstones but it was not causing his infection and his ammonia level was very high. states she is trying to stop smoking. He denies rash or active bleeding. Chief Complaint:: PT C/O N/V, FEVER, ABD PAIN AND CHILLS THAT STARTED THIS AM PER . - Nurses notes reviewed Nurses Notes Review: Yes - Source History Provided: Patient - Mode of Arrival Mode of Arrival: Ambulatory - Timing Onset of Chief Complaint: 10/08/17 Came on: Gradually - Duration Duration: Constant How lon Duration: Hours - Location Location: diffuse abdominal - Severity Severity: Moderate, Severe - Modifying Factors Worsens:: nothing Improves:: nothing PMH - PMH Past Medical History: Yes Past Medical History: Arthritis, Asthma, Cirrhosis, GERD, Kidney Stones, Liver Disease Past Surgical History: No Surgical History: No History - Family History History of Family Medical Conditions: Yes Family Medical History: Diabetes Mellitus, Hypertension - Social History Does patient currently use any type of tobacco product: Yes Have you used tobacco products in the last 12 months: Yes Type of Tobacco Use: Cigarettes Does any household member use tobacco: Yes Alcohol Use: None Do you use any recreational Drugs:: No Lives With: Family Lives Where: Home - infectious screening In the last 2 months have you had wt loss of >10#?: NO Have you had fever, night sweats or hemotysis?: No Have you traveled outside the country in the last 6 months?: No ROS - Review of Systems Constitutional: No Symptoms Reported, Chills, Fever, Weakness, Loss of Appetite Eyes: No Symptoms Reported. negative: See HPI, Eye Pain, Blurred Vision, Tearing, Discharge, Photophobia, Diplopia, Other ENTM: No Symptoms Reported Respiratoy: No Symptoms Reported. negative: See HPI, Productive Cough, Non- Productive Cough, Moist Cough, Dry Cough, Hacking Cough, Barking Cough, Brassy Cough, Orthopnea, Short of Breath, Stridor, Wheezing, Hemoptysis, Other Cardiovascular: No Symptoms Reported. negative: See HPI, Chest Pain, Edema, Palpitations, Syncope, Cyanosis, Skin Mottling, Other Gastrointestinal/Abdominal: Abdominal Pain Genitourinary: No Symptoms Reported. negative: See HPI, Discharge, Dysuria, Frequency, Hematuria, Pain, Bleeding, Other Neurological: No Symptoms Reported. negative: See HPI, Anxiety, Depressed, Emotional Problems, Headache, Numbness, Paresthesia, Pre-existing Deficit, Seizure, Tingling, Tremors, Weakness, Dizziness, Problems Walking, Speech Problem, Other Musculoskeletal: No Symptoms Reported Integumentary: No Symptoms Reported Hematologic/Lymphatic: No Symptoms Reported Endocrine: No Symptoms Reported Psychiatric: No Symptoms Reported PE - Vital Signs Vitals: Temperature 100.0 F Pulse Rate 112 Respiratory Rate 20 Blood Pressure [Right Arm] 115/53 Blood Pressure [Left Arm] 149/81 Blood Pressure 125/75 O2 Sat by Pulse Oximetry 97 - General Limitations: No Limitations General Appearance: Alert, In Distress (moderate), Obese - Head Head Exam: Normal Inspection, Atraumatic, Normocephalic - Eyes Eye exam: Normal Appearance, PERRL, EOMI. negative: Scleral Icterus, Conjunctival Injection, Nystagmus, Miosis, Mydrasis, Periorbital Swelling, Periorbital Tenderness, Other - ENT ENT Exam: Normal Exam, Normal Oropharynx, Normal External Ear Exam, Mucous Membranes Moist, TM's Normal Bilaterally External Ear Exam: Normal External Inspection. negative: Auricular Hematoma, Auricular Trauma, Mastoid Tenderness, Pain with Movement, External Tenderness, Periauricular Adenopathy, Other TM/Canal Exam: Bilateral Normal Nose Exam: Normal Nose Exam Mouth Exam: Normal Inspection. negative: Drooling, Trismus, Lip Swelling, Tongue Elevation, Tongue Swelling, Laceration, Other Throat Exam: Normal Inspection - Neck Neck Exam: Normal Inspection, Full ROM, Trachea Midline - Chest Chest Inspection: Normal Inspection, Symmetric Chest Wall Rise - Respiratory Respiratory Exam: Normal Lung Sounds Bilat Respiratory Exam: Bilateral Clear to Auscultation - Cardiovascular Cardiovascular Exam: Regular Rate, Normal Rhythm, Normal Heart Sounds - Abdominal Exam Abdominal Exam: Normal Inspection, Normal Bowel Sounds, Soft, Distention, Tenderness, Guarding, Dimnished Bowel Sounds Abdominal Tenderness: Epigastrium, Suprapubic, Diffuse, Moderate - Extremities Extremities Exam: Normal Inspection, Full ROM, Normal Capillary Refill. negative: Tenderness, Edema, Joint Swelling, Calf Tenderness, Other - Back Back Exam: Normal Inspection, Full ROM. negative: Tenderness, (R) CVA Tenderness, (L) CVA Tenderness, Muscle Spasm, Paraspinal Tenderness, Vertebral Tenderness, Rashes, (R) Sciatic Notch Tenderness, (L) Sciatic Notch Tendern, (R ) Straight Leg Raise, (L) Straight Leg Raise, Other - Neurologic Neurological Exam: Alert, Oriented X3, CN II-XII Intact, Reflexes Normal. negative: Normal Gait (gait not tested) - Psychiatric Psychiatric Exam: Normal Affect, Normal Mood - Skin Skin Exam: Warm, Dry, Intact, Normal Color Course - Consultation Called: 15:55 Call Returned: 15:55 (Dr. Hodges to admit) - Education/Counseling Education/Counseling: Family Educated On: Treatment, Diagnosis, Needs for Follow Up ROR - Labs Reviewed Laboratory Results Reviewed?: Yes (all labs and x-ray results reviewed and discussed with patient) Result Diagrams: 10/08/17 12:50 10/08/17 12:50 Laboratory: WBC 8.7 X10^3/uL (3.6-10.0) 10/08/17 12:50 RBC 3.32 X10^6/uL (4.7-6.0) L 10/08/17 12:50 Hgb 12.0 g/dL (13.5-18.0) L 10/08/17 12:50 Hct 34.4 % (42.0-54.0) L 10/08/17 12:50 MCV 103.7 fL (80.0-100.0) H 10/08/17 12:50 MCH 36.1 pg (27.0-34.0) H 10/08/17 12:50 MCHC 34.8 g/dL (33.0-35.0) 10/08/17 12:50 RDW 15.5 % (11.6-16.5) 10/08/17 12:50 Plt Count 55 X10^3/uL (150.0-450.0) L 10/08/17 12:50 Plt Count Comment Decreased (ADEQUATE) 10/08/17 12:50 MPV 9.7 fL (7.4-11.0) 10/08/17 12:50 Neut % 84.1 % (42.0-75.0) H 10/08/17 12:50 Lymph % 9.5 % (21.0-51.0) L 10/08/17 12:50 [place] % 4.4 % (0.0-13.0) 10/08/17 12:50 Eos % 1.2 % (0.9-2.9) 10/08/17 12:50 Baso % 0.8 % (0.2-1.0) 10/08/17 12:50 Neut # 7.3 x10^3/uL (2.2-4.8) H 10/08/17 12:50 Lymph # 0.8 X10^3/uL (1.3-2.9) L 10/08/17 12:50 [place] # 0.4 x10^3/uL (0.3-0.8) 10/08/17 12:50 Eos # 0.1 x10^3/uL (0.0-0.2) 10/08/17 12:50 Baso # 0.1 X10^3/uL (0.0-0.1) 10/08/17 12:50 Absolute Nucleated RBC 0.1 /100WBC 10/08/17 12:50 Plt Morphology Comment Abnormal (NORMAL) 10/08/17 12:50 RBC Morphology Abnormal (NORMAL) 10/08/17 12:50 Macrocytosis Slight A 10/08/17 12:50 INR Target Range - 10/08/17 12:50 INR 2.54 (0.8-1.3) H 10/08/17 12:50 Sodium 140 mmol/L (136-145) 10/08/17 12:50 Corrected Sodium TNP 10/08/17 12:50 Potassium 3.9 mmol/L (3.5-5.1) 10/08/17 12:50 Chloride 109 mmol/L (98-107) H 10/08/17 12:50 Carbon Dioxide 23.0 mmol/L (21-32) 10/08/17 12:50 BUN 10 mg/dL (7-18) 10/08/17 12:50 Creatinine 1.48 mg/dL (0.70-1.30) H 10/08/17 12:50 Est GFR (MDRD) Af Amer > 60 (>60) 10/08/17 12:50 Est GFR (MDRD) Non-Af 54 (>60) L 10/08/17 12:50 Glucose 107 mg/dL (65-99) H 10/08/17 12:50 Calcium 8.4 mg/dL (8.5-10.1) L 10/08/17 12:50 Corrected Calcium 9.7 mg/dL (8.5-10.1) 10/08/17 12:50 Total Bilirubin 5.50 mg/dL (0.2-1.0) H 10/08/17 12:50 AST 82 Units/L (15-37) H 10/08/17 12:50 ALT 35 Units/L (12-78) 10/08/17 12:50 Alkaline Phosphatase 226 Units/L (46-116) H 10/08/17 12:50 Ammonia 98 umol/L (11-32) H 10/08/17 12:50 Total Protein 7.4 g/dL (6.4-8.2) 10/08/17 12:50 Albumin 2.4 g/dL (3.4-5.0) L 10/08/17 12:50 Globulin 5.0 g/dL (2.5-4.5) H 10/08/17 12:50 Albumin/Globulin Ratio 0.5 Ratio (1.1-2.1) L 10/08/17 12:50 Amylase 78 Units/L (25-115) 10/08/17 12:50 Lipase 344 Units/L (73-393) 10/08/17 12:50 - XRAY XRAY Interpreted by: Radiologist (CT abdomen and pelvis: Unchanges splenomegaly and cirrhotic appearing liver with messenteric edema and small volume periheatic and pelvic ascites. Cholelithiasis. Bilateral punctate renal stones. Normal appendix.) - Diagnosis Discharge Problem: Hepatic encephalopathy, Hyperammonemia, Ascites of liver, Coagulopathy, Bilateral kidney stones, Thrombocytopenia Cholelithiasis Qualifiers: Cholecystitis acuity: chronic Abdominal pain Qualifiers: Abdominal location: generalized Qualified Code(s): R10.84 - Generalized abdominal pain - Discharge Plan Disposition: ADMITTED INPATIENT Condition: Stable - Follow ups/Referrals Follow ups/Referrals: TANYA MARQUEZ [Primary Care Provider] - 3 days - Instructions
[2017-10-08] MEDS ORDERED: ZOFRAN INJ 4 MG VIAL ONE (12:34)
[2017-10-08] MEDS ORDERED: NS 1000 ML 1,000 ML ONE ×2 (12:34→17:22)
[2017-10-08 13:11] LABS: BASOPHILS # (AUTO) 0.1 X10^3/uL (0.0-0.1); BASOPHILS % (AUTO) 0.8 % (0.2-1.0); EOSINOPHILS # (AUTO) 0.1 x10^3/uL (0.0-0.2); EOSINOPHILS % (AUTO) 1.2 % (0.9-2.9); HEMATOCRIT 34.4 % (42.0-54.0); LYMPHOCYTES # (AUTO) 0.8 X10^3/uL (1.3-2.9); LYMPHOCYTES % (AUTO) 9.5 % (21.0-51.0); MEAN CORPUSCULAR HEMOGLOBIN 36.1 pg (27.0-34.0); MEAN CORPUSCULAR HGB CONC 34.8 g/dL (33.0-35.0); MEAN CORPUSCULAR VOLUME 103.7 fL (80.0-100.0); MEAN PLATELET VOLUME 9.7 fL (7.4-11.0); MONOCYTES # (AUTO) 0.4 x10^3/uL (0.3-0.8); MONOCYTES % (AUTO) 4.4 % (0.0-13.0); NEUTROPHILS # (AUTO) 7.3 x10^3/uL (2.2-4.8); NEUTROPHILS % (AUTO) 84.1 % (42.0-75.0); PLATELET COUNT 55 X10^3/uL (150.0-450.0); RED BLOOD COUNT 3.32 X10^6/uL (4.7-6.0); RED CELL DISTRIBUTION WIDTH 15.5 % (11.6-16.5); WHITE BLOOD COUNT 8.7 X10^3/uL (3.6-10.0)
[2017-10-08 13:19] LABS: AMMONIA 98 umol/L (11-32)
[2017-10-08 13:23] LABS: ALANINE AMINOTRANSFERASE 35 Units/L (12-78); ALBUMIN 2.4 g/dL (3.4-5.0); ALKALINE PHOSPHATASE 226 Units/L (46-116); AMYLASE 78 Units/L (25-115); ASPARTATE AMINO TRANSFERASE 82 Units/L (15-37); BLOOD UREA NITROGEN 10 mg/dL (7-18); CALCIUM 8.4 mg/dL (8.5-10.1); CHLORIDE 109 mmol/L (98-107); COR CA(FOR HYPOALB) 9.7 mg/dL (8.5-10.1); CREATININE 1.48 mg/dL (0.70-1.30); LIPASE 344 Units/L (73-393); SODIUM 140 mmol/L (136-145); TOTAL PROTEIN 7.4 g/dL (6.4-8.2); eGFR BLACK RACES > 60 (>60); eGFR NON BLACK RACES 54 (>60)
[2017-10-08 13:24] LABS: PLATELET MORPHOLOGY COMMENT ABNORMAL (NORMAL)
--- NOTE | 2017-10-08 15:32 | CT ---
CT ABDOMEN AND PELVIS WITHOUT CONTRAST CLINICAL HISTORY: 47-year-old male with nausea, vomiting, fever and abdominal pain. COMPARISON: CT abdomen and pelvis 08/18/2017. TECHNIQUE: Multiple contiguous computed tomographic axial images of the abdomen and pelvis were obtai cecy without the use of oral or intravenous contrast. Images were reformatted in the coronal and sagit meenu planes. FINDINGS: The lung bases demonstrate no evidence of focal air-space opacification, pleural effusion, pneumothor ax, or suspicious pulmonary nodules. The imaged inferior mediastinum and heart are normal in appeara nce without evidence of pericardial effusion. Unchanged lobulated appearance of the liver. Re-demonstration of multiple calcified gallstones withou t pericholecystic inflammatory change. Splenomegaly is stable. Pancreas is unremarkable. Re-demonstra tion of edematous appearance of the mesentery with small volume perihepatic and pelvic ascites. Adrenal glands are unremarkable. Unchanged hyperdense left renal cyst and punctate bilateral nonobstr ucting renal stones. No perinephric fluid collections. There is no evidence of hydroureteronephrosis and the ureters run in an unobstructed course to a well distended urinary bladder. The prostate, seminal vesicles, and external genitalia are within normal limits. The appendix is normal in appearance. The bowel is without obstruction or inflammation and there is no free fluid or free air within the peritoneal cavity. There are no pathologically enlarged lymph n odes in the abdomen or pelvis. The arteriovascular structures are within normal limits for a study without contrast. Soft tissues are normal. The osseous structures are intact without fracture or malalignment. IMPRESSION: 1. Unchanged splenomegaly and cirrhotic appearing liver with mesenteric edema and small volume perihe patic and pelvic ascites. 2. Cholelithiasis without CT evidence of acute cholecystitis. 3. Nonobstructing bilateral punctate renal stones. 4. Normal appendix. Reported By:
[2017-10-08] MEDS ORDERED: CHRONULAC PO STA (15:39)
[2017-10-08] MEDS ORDERED: SORBITOL 70% PO SCH (15:45)
[2017-10-08] MEDS ORDERED: ZOSYN VIAL 3.375 GM 3.375 GM in NS 100 ML IV + SPIKE MINIBAG* 100 ML IV ONE (15:54)
[2017-10-08] MEDS ORDERED: CHRONULAC ONE (17:18)
[2017-10-08] MEDS ORDERED: NS 100 ML IV + SPIKE MINIBAG* 100 ML IV ONE (17:19)
[2017-10-08] MEDS ORDERED: ZOSYN VIAL 3.375 GM IV ONE (17:19)
[2017-10-08] MEDS ORDERED: PEPCID 20 MG IV PREMIX* 20 MG/50 ML BAG IV PRN (17:27)
[2017-10-08] MEDS ORDERED: MORPHINE SULFATE INJ 2 MG INJ IVP PRN (17:27)
[2017-10-08] MEDS ORDERED: ZOFRAN INJ 4 MG VIAL IVP PRN (17:27)
[2017-10-08] MEDS ORDERED: NS 1000 ML 1,000 ML IV STA (18:58)
[2017-10-08] MEDS ORDERED: NS 1000 ML 1,000 ML IV SCH (19:00)
[2017-10-08] MEDS ORDERED: CHRONULAC PO SCH (21:00)
[2017-10-08] MEDS: ZOSYN VIAL 3.375 GM 3.375 GM in NS 100 ML IV + SPIKE MINIBAG* 100 ML IV SCH (21:48)
[2017-10-08] MEDS: CHRONULAC PO SCH (22:41)
[2017-10-09] MEDS: CHRONULAC PO SCH ×2 (06:13→14:28)
[2017-10-09] MEDS: ZOSYN VIAL 3.375 GM 3.375 GM in NS 100 ML IV + SPIKE MINIBAG* 100 ML IV SCH ×3 (06:14→21:27)
[2017-10-09 06:32] LABS: BASOPHILS # (AUTO) 0.1 X10^3/uL (0.0-0.1); BASOPHILS % (AUTO) 0.5 % (0.2-1.0); EOSINOPHILS % (AUTO) 0.2 % (0.9-2.9); HEMATOCRIT 30.9 % (42.0-54.0); HEMOGLOBIN 10.6 g/dL (13.5-18.0); LYMPHOCYTES # (AUTO) 2.2 X10^3/uL (1.3-2.9); LYMPHOCYTES % (AUTO) 17.2 % (21.0-51.0); MEAN CORPUSCULAR HEMOGLOBIN 36.1 pg (27.0-34.0); MEAN CORPUSCULAR HGB CONC 34.4 g/dL (33.0-35.0); MEAN CORPUSCULAR VOLUME 105.1 fL (80.0-100.0); MEAN PLATELET VOLUME 10.1 fL (7.4-11.0); MONOCYTES # (AUTO) 0.7 x10^3/uL (0.3-0.8); MONOCYTES % (AUTO) 5.9 % (0.0-13.0); NEUTROPHILS # (AUTO) 9.5 x10^3/uL (2.2-4.8); NEUTROPHILS % (AUTO) 76.2 % (42.0-75.0); PLATELET COUNT 45 X10^3/uL (150.0-450.0); RED BLOOD COUNT 2.94 X10^6/uL (4.7-6.0); RED CELL DISTRIBUTION WIDTH 16.2 % (11.6-16.5); WHITE BLOOD COUNT 12.5 X10^3/uL (3.6-10.0)
[2017-10-09 06:39] LABS: CARBON DIOXIDE 21.1 mmol/L (21-32); COR CA(FOR HYPOALB) 9.6 mg/dL (8.5-10.1); CREATININE 1.94 mg/dL (0.70-1.30); TOTAL PROTEIN 6.7 g/dL (6.4-8.2)
[2017-10-09 07:10] LABS: PLATELET MORPHOLOGY COMMENT ABNORMAL (NORMAL)
[2017-10-09 07:11] LABS: HYPOCHROMASIA SLIGHT
[2017-10-09] MEDS ORDERED: BUTT CREAM (COMPOUND) TOP PRN (08:07)
[2017-10-09 10:14] LABS: BILIRUBIN,URINE 2+ (NEGATIVE); BLOOD/HEMOGLOBIN,URINE 2+ (NEGATIVE); GLUCOSE, URINE NEGATIVE (NEGATIVE); KETONES,URINE NEGATIVE (NEGATIVE); LEUKOCYTE ESTERASE ,URINE 1+ (NEGATIVE); NITRITES,URINE POSITIVE (NEGATIVE); PROTEIN,URINE 2+ (NEGATIVE); UROBILINOGEN,URINE 1+ (NORMAL)
[2017-10-09 10:36] LABS: AMORPHOUS SEDIMENT,UR 4+ /HPF (NEGATIVE); APPEARANCE,URINE TURBID (CLEAR); BACTERIA,URINE NEGATIVE /HPF (NEGATIVE); COLOR,URINE AMBER (YELLOW); RBC,URINE RARE /HPF (NEGATIVE); SQUAMOUS EPITHELIAL CELL,UR RARE /HPF (NEGATIVE)
[2017-10-09] MEDS ORDERED: ROXICODONE TAB 5 MG PO PRN (12:14)
[2017-10-09] MEDS ORDERED: CHRONULAC ONE (14:00)
[2017-10-09] MEDS ORDERED: NS 100 ML IV 100 ML IV ONE (14:01)
[2017-10-09] MEDS ORDERED: ZOSYN VIAL 3.375 GM IV ONE (14:01)
[2017-10-09] MEDS: NEURONTIN CAP 400 MG PO SCH (21:27)
[2017-10-09] MEDS: XIFAXAN PO SCH (21:27)
[2017-10-10] MEDS ORDERED: NS 100 ML IV + SPIKE MINIBAG* 100 ML IV ONE (06:03)
[2017-10-10] MEDS ORDERED: ZOSYN VIAL 3.375 GM IV ONE (06:04)
[2017-10-10 06:21] LABS: BASOPHILS # (AUTO) 0.1 X10^3/uL (0.0-0.1); BASOPHILS % (AUTO) 0.8 % (0.2-1.0); EOSINOPHILS # (AUTO) 0.2 x10^3/uL (0.0-0.2); EOSINOPHILS % (AUTO) 3.4 % (0.9-2.9); HEMATOCRIT 27.8 % (42.0-54.0); LYMPHOCYTES # (AUTO) 1.7 X10^3/uL (1.3-2.9); LYMPHOCYTES % (AUTO) 26.6 % (21.0-51.0); MEAN CORPUSCULAR HEMOGLOBIN 37.4 pg (27.0-34.0); MEAN CORPUSCULAR VOLUME 103.8 fL (80.0-100.0); MEAN PLATELET VOLUME 9.7 fL (7.4-11.0); MONOCYTES # (AUTO) 0.5 x10^3/uL (0.3-0.8); MONOCYTES % (AUTO) 7.5 % (0.0-13.0); NEUTROPHILS # (AUTO) 3.9 x10^3/uL (2.2-4.8); NEUTROPHILS % (AUTO) 61.7 % (42.0-75.0); PLATELET COUNT 46 X10^3/uL (150.0-450.0); RED BLOOD COUNT 2.68 X10^6/uL (4.7-6.0); RED CELL DISTRIBUTION WIDTH 15.8 % (11.6-16.5)
[2017-10-10 07:11] LABS: ALANINE AMINOTRANSFERASE 28 Units/L (12-78); ALBUMIN 1.9 g/dL (3.4-5.0); ALKALINE PHOSPHATASE 119 Units/L (46-116); ASPARTATE AMINO TRANSFERASE 68 Units/L (15-37); BLOOD UREA NITROGEN 16 mg/dL (7-18); CALCIUM 8.2 mg/dL (8.5-10.1); CARBON DIOXIDE 23.3 mmol/L (21-32); CHLORIDE 107 mmol/L (98-107); COR CA(FOR HYPOALB) 9.9 mg/dL (8.5-10.1); CREATININE 1.44 mg/dL (0.70-1.30); SODIUM 142 mmol/L (136-145); TOTAL PROTEIN 6.1 g/dL (6.4-8.2); eGFR BLACK RACES > 60 (>60); eGFR NON BLACK RACES 56 (>60)
[2017-10-10 07:31] LABS: WHITE BLOOD COUNT 9.5 X10^3/uL (3.6-10.0)
[2017-10-10 07:32] LABS: GIANT PLATELET NOTED; PLATELET MORPHOLOGY COMMENT ABNORMAL (NORMAL)
[2017-10-10 08:10] VITALS: BP 131/65
[2017-10-10] MEDS ORDERED: MICRO K EXTEN CAP 10 MEQ PO SCH (09:00)
[2017-10-10] MEDS ORDERED: VITAMIN B-1 PO SCH (09:00)
[2017-10-10] MEDS ORDERED: PriLOSEC PO SCH (09:00)
[2017-10-10] MEDS ORDERED: MAG-OX TAB PO SCH (09:00)
[2017-10-10] MEDS ORDERED: FLONASE NASAL SPRAY ENOSTRIL SCH (09:00)
[2017-10-10] MEDS ORDERED: TAB-A-VITE PO SCH (09:00)
[2017-10-10] MEDS ORDERED: PATIENT'S HOME MEDICATION (Potassium Chloride [Potassium Chloride] 10 MEQ) PO SCH (09:00)
[2017-10-10] MEDS ORDERED: NADOLOL 20 MG PO SCH (09:00)
[2017-10-10] MEDS ORDERED: LASIX PO SCH (09:00)
[2017-10-10] MEDS ORDERED: MAGNESIUM OXIDE 250 MG PO SCH (09:00)
[2017-10-10] MEDS: NEURONTIN CAP 400 MG PO SCH (10:08)
[2017-10-10] MEDS: XIFAXAN PO SCH (10:30)
== END 2017-10-10 12:31 | disposition home or self-care (01) | DRG 442 ==
LOC: ER 12:07 → INTOOBSV 17:24 → OBSVTOIN 17:24 → OBS 17:24
PROVIDERS: ADMIT Internal Medicine; ATTEND Obstetrics & Gynecology Obstetrics
DX: K72.90 Hepatic failure, unspecified without coma (principal); R18.8 Other ascites; D68.8 Other specified coagulation defects; E72.20 Disorder of urea cycle metabolism, unspecified; K74.69 Other cirrhosis of liver; R10.84 Generalized abdominal pain; R06.02 Shortness of breath; D69.6 Thrombocytopenia, unspecified; K80.80 Other cholelithiasis without obstruction
CPT/HCPCS: 36415; 74176; 80053; 81001; 82140; 82150; 83690; 85025; 85610; 87040; 96365; 96374; 96375; 99218; 99284; A4216; A4222; S0028; G0378; J2405; J2543

== ENCOUNTER 2017-11-03 10:26 | Day surgery (SDC) | payer OTHER ==
[2017-11-03] MEDS ORDERED: D5 LR 1000 ML 1,000 ML IV ONE (10:56)
[2017-11-03] MEDS ORDERED: DIPRIVAN VIAL 20 ML ONE (11:22)
[2017-11-03 13:56] VITALS: BP 114/64
== END 2017-11-03 11:55 | disposition home or self-care (01) ==
LOC: SURG1 10:26
PROVIDERS: ATTEND Internal Medicine Gastroenterology
PROC: 0DJ08ZZ Inspection of Upper Intestinal Tract, Via Natural or Artificial Opening Endoscopic (ICD-10-PCS; principal; 2017-11-03 17:15)
DX: K74.69 Other cirrhosis of liver (principal); R10.13 Epigastric pain; R11.2 Nausea with vomiting, unspecified; I85.00 Esophageal varices without bleeding; K31.89 Other diseases of stomach and duodenum; K21.9 Gastro-esophageal reflux disease without esophagitis
CPT/HCPCS: A4217; J3490; J7120

== ENCOUNTER 2018-01-15 20:37 | Emergency (ER) | payer SELFPAY ==
[2018-01-15 20:49] VITALS: BP 128/60; BMI 32.3
--- NOTE | 2018-01-15 21:22 | DR.GENAD ---
HPI - PCP Primary Care Physician: MARQUEZ - Complaint/Symptoms Chief Complaint:: STOMACH DISTENDED AND TIGHT OVER THE LAST FEW WEEKS MORE OVER THE LAST COUPLE DAYS, NEEDS LIVER TRANSPLANT WORRIES ITS FLUID BUILT UP, LBM TODAY SOME TROUBLE BREATHING WHEN LAYING DOWN FOR BED Self Treatment fo Chief Complaint: LACTULOSE - Nurses notes reviewed Nurses Notes Review: Yes - Source History Provided: Patient - Mode of Arrival Mode of Arrival: Ambulatory - Timing Onset of Chief Complaint: 01/13/18 PMH - PMH Past Medical History: Yes Past Medical History: Cirrhosis, Hypertension, Liver Disease Past Surgical History: Yes Surgical History: Other Past Surgical History Comment: INGROWN TOE NAIL - Family History History of Family Medical Conditions: Yes Family Medical History: Diabetes Mellitus, Hypertension Family Medical History Comment: DEPRESSION THYRIOD- MOTHER - Social History Does patient currently use any type of tobacco product: Yes Have you used tobacco products in the last 12 months: Yes Type of Tobacco Use: Cigarettes Does any household member use tobacco: No Alcohol Use: None Do you use any recreational Drugs:: No Lives With: Spouse Lives Where: Home - infectious screening In the last 2 months have you had wt loss of >10#?: NO Have you had fever, night sweats or hemotysis?: No Have you traveled outside the country in the last 6 months?: No Isolation: Standard ROS - Review of Systems Constitutional: No Symptoms Reported Eyes: No Symptoms Reported ENTM: No Symptoms Reported Respiratoy: No Symptoms Reported Cardiovascular: No Symptoms Reported Gastrointestinal/Abdominal: Other (adominal distention) Genitourinary: No Symptoms Reported Neurological: No Symptoms Reported Musculoskeletal: No Symptoms Reported Integumentary: No Symptoms Reported Hematologic/Lymphatic: No Symptoms Reported Endocrine: No Symptoms Reported Psychiatric: No Symptoms Reported All Other Systems: Reviewed and Negative PE - Vital Signs Vitals: Temperature 98.0 F Pulse Rate 62 Respiratory Rate 18 Blood Pressure [Right Arm] 95/50 Blood Pressure [Left Arm] 131/65 Blood Pressure 128/60 O2 Sat by Pulse Oximetry 100 - General Limitations: No Limitations General Appearance: Alert, In No Apparent Distress - Head Head Exam: Normal Inspection - Eyes Eye exam: Normal Appearance - ENT ENT Exam: Normal Exam - Neck Neck Exam: Normal Inspection - Chest Chest Inspection: Normal Inspection - Respiratory Respiratory Exam: Normal Lung Sounds Bilat - Cardiovascular Cardiovascular Exam: Regular Rate, Normal Rhythm, Normal Heart Sounds, +S1, +S2 - Abdominal Exam Abdominal Exam: Normal Inspection, Normal Bowel Sounds, Soft, Distention (this is moderate). negative: Tenderness, Guarding, Rebound, Rigidity, Dimnished Bowel Sounds, Hyperactive Bowel Sounds, Hypoactive Bowel Sounds, Organomegaly, Trauma, Incision, Mass, Bruit, Pulsatile Mass, Hernia - Extremities Extremities Exam: Normal Inspection - Back Back Exam: Normal Inspection - Neurologic Neurological Exam: Alert, Oriented X3 - Psychiatric Psychiatric Exam: Normal Affect, Normal Mood - Skin Skin Exam: Warm, Dry, Intact, Normal Color Course - Reevaluation 1st: Improved - Education/Counseling Education/Counseling: Patient, Family, Education, Counseling Educated On: Treatment, Diagnosis, Prognosis, Needs for Follow Up ROR - Labs Reviewed Result Diagrams: 01/15/18 21:01/15/18: Laboratory: WBC 5.7 X10^3/uL (3.6-10.0) 01/15/18 21: RBC 2.81 X10^6/uL (4.7-6.0) L 01/15/18 21: Hgb 10.4 g/dL (13.5-18.0) L 01/15/18 21: Hct 29.2 % (42.0-54.0) L 01/15/18 21: MCV 103.7 fL (80.0-100.0) H 01/15/18 21: MCH 37.1 pg (27.0-34.0) H 01/15/18 21: MCHC 35.8 g/dL (33.0-35.0) H 01/15/18: RDW 16.3 % (11.6-16.5) 01/15/18: Plt Count 71 X10^3/uL (150.0-450.0) L 01/15/18: Plt Count Comment Decreased (ADEQUATE) 01/15/18: MPV 8.5 fL (7.4-11.0) 01/15/18: Neut % (Auto) 50.3 % (42.0-75.0) 01/15/18 21: Lymph % (Auto) 34.8 % (21.0-51.0) 01/15/18: [place] % (Auto) 9.2 % (0.0-13.0) 01/15/18 21: Eos % (Auto) 4.8 % (0.9-2.9) H 01/15/18 21: Baso % (Auto) 0.9 % (0.2-1.0) 01/15/18 21: Neut # (Auto) 2.4 x10^3/uL (2.2-4.8) 01/15/18 21: Lymph # (Auto) 1.6 X10^3/uL (1.3-2.9) 01/15/18 21: [place] # (Auto) 0.4 x10^3/uL (0.3-0.8) 01/15/18 21: Eos # (Auto) 0.2 x10^3/uL (0.0-0.2) 01/15/18 21: Baso # (Auto) 0.0 X10^3/uL (0.0-0.1) 01/15/18: Absolute Nucleated RBC 0.1 /100WBC 01/15/18 21: Plt Morphology Comment Normal (NORMAL) 01/15/18 21: RBC Morphology Normal (NORMAL) 01/15/18 21: Sodium 137 mmol/L (136-145) 01/15/18 21: Corrected Sodium TNP 01/15/18: Potassium 3.7 mmol/L (3.5-5.1) 01/15/18: Chloride 107 mmol/L (98-107) 01/15/18: Carbon Dioxide 26.8 mmol/L (21-32) 01/15/18 21: BUN 7 mg/dL (7-18) 01/15/18 21: Creatinine 1.32 mg/dL (0.70-1.30) H 01/15/18 21:28 Est GFR (MDRD) Af Amer > 60 (>60) 01/15/18: Est GFR (MDRD) Non-Af > 60 (>60) 01/15/18: Glucose 98 mg/dL (65-99) 01/15/18: Calcium 7.3 mg/dL (8.5-10.1) L 01/15/18: Corrected Calcium 9.0 mg/dL (8.5-10.1) 01/15/18 21:28 Total Bilirubin 5.80 mg/dL (0.2-1.0) H 01/15/18 21:28 AST 65 Units/L (15-37) H 01/15/18 21:28 ALT 29 Units/L (12-78) 01/15/18 21:28 Alkaline Phosphatase 162 Units/L (46-116) H 01/15/18 21:28 Total Protein 6.9 g/dL (6.4-8.2) 01/15/18 21:28 Albumin 1.9 g/dL (3.4-5.0) L 01/15/18 21:28 Globulin 5.0 g/dL (2.5-4.5) H 01/15/18 21:28 Albumin/Globulin Ratio 0.4 Ratio (1.1-2.1) L 01/15/18 21:28 - XRAY XRAY Interpreted by: Radiologist (citthosiswith portal HTN, spleenomegaly. small to moderate ascites) - Diagnosis Discharge Problem: Cirrhosis of liver, Thrombocytopenia - Discharge Plan Disposition: 01 HOME, SELF-CARE Condition: Stable - Follow ups/Referrals Follow ups/Referrals: TANYA MARQUEZ [Primary Care Provider] - 3 days - Instructions Instructions: Cirrhosis
[2018-01-15 21:36] LABS: BASOPHILS % (AUTO) 0.9 % (0.2-1.0); EOSINOPHILS # (AUTO) 0.2 x10^3/uL (0.0-0.2); EOSINOPHILS % (AUTO) 4.8 % (0.9-2.9); HEMATOCRIT 29.2 % (42.0-54.0); HEMOGLOBIN 10.4 g/dL (13.5-18.0); LYMPHOCYTES # (AUTO) 1.6 X10^3/uL (1.3-2.9); LYMPHOCYTES % (AUTO) 34.8 % (21.0-51.0); MEAN CORPUSCULAR HEMOGLOBIN 37.1 pg (27.0-34.0); MEAN CORPUSCULAR HGB CONC 35.8 g/dL (33.0-35.0); MEAN CORPUSCULAR VOLUME 103.7 fL (80.0-100.0); MEAN PLATELET VOLUME 8.5 fL (7.4-11.0); MONOCYTES # (AUTO) 0.4 x10^3/uL (0.3-0.8); MONOCYTES % (AUTO) 9.2 % (0.0-13.0); NEUTROPHILS # (AUTO) 2.4 x10^3/uL (2.2-4.8); NEUTROPHILS % (AUTO) 50.3 % (42.0-75.0); PLATELET COUNT 71 X10^3/uL (150.0-450.0); RED BLOOD COUNT 2.81 X10^6/uL (4.7-6.0); RED CELL DISTRIBUTION WIDTH 16.3 % (11.6-16.5)
[2018-01-15 21:53] LABS: ALANINE AMINOTRANSFERASE 29 Units/L (12-78); ALBUMIN 1.9 g/dL (3.4-5.0); ALKALINE PHOSPHATASE 162 Units/L (46-116); ASPARTATE AMINO TRANSFERASE 65 Units/L (15-37); BLOOD UREA NITROGEN 7 mg/dL (7-18); CALCIUM 7.3 mg/dL (8.5-10.1); CARBON DIOXIDE 26.8 mmol/L (21-32); CHLORIDE 107 mmol/L (98-107); CREATININE 1.32 mg/dL (0.70-1.30); SODIUM 137 mmol/L (136-145); TOTAL PROTEIN 6.9 g/dL (6.4-8.2); eGFR BLACK RACES > 60 (>60); eGFR NON BLACK RACES > 60 (>60)
[2018-01-15 22:01] LABS: WHITE BLOOD COUNT 5.7 X10^3/uL (3.6-10.0)
[2018-01-15 22:02] LABS: PLATELET MORPHOLOGY COMMENT NORMAL (NORMAL)
--- NOTE | 2018-01-15 22:20 | CT ---
CT abdomen and pelvis without contrast Indication: Abdominal pain, swelling. Known cirrhosis. Comparison: 10/08/2017 Technique: CT images of the abdomen and pelvis were obtained without contrast. Automatic exposure con trol was utilized. Findings: No acute skeletal abnormality. The lung bases are clear. Evaluation of the abdominal pelvic viscera is limited without contrast. The liver is grossly cirrhoti c. No obvious liver mass. Multiple calcified gallstones are noted, without evidence for acute cholecy stitis. Calcifications of the gallbladder wall are also noted. Unchanged splenomegaly. There is small to moderate volume ascites with mesenteric edema. There are small nonobstructing bilateral renal sto valentin, similar prior. Within noncontrast limitations, the stomach, pancreas, and adrenals are unremarka ble. There is recanalization of the umbilical vein. Caput medusa is noted. No marked thickening or dilatation of the lower GI tract observed. The appendix is normal. The urinar y bladder, prostate, and rectum are unremarkable. No bulky adenopathy observed. Impression: 1. Cirrhosis with findings of portal venous hypertension, including splenomegaly, small to moderate v olume ascites, umbilical vein recanalization, and caput medusa. 2. No acute process, within noncontrast limitations. 3. Cholelithiasis. Suggestion of porcelain gallbladder. 4. Nonobstructing bilateral nephrolithiasis and other findings as above. Reported By:
== END 2018-01-15 23:15 | disposition home or self-care (01) ==
LOC: ER 20:37
DX: K74.60 Unspecified cirrhosis of liver (principal); D69.6 Thrombocytopenia, unspecified; K80.20 Calculus of gallbladder without cholecystitis without obstruction; I10 Essential (primary) hypertension; R16.1 Splenomegaly, not elsewhere classified; R10.84 Generalized abdominal pain
CPT/HCPCS: 36415; 74176; 80053; 85025; 99283

== ENCOUNTER 2018-04-13 10:33 | Inpatient (IN) ==
--- NOTE | 2018-04-13 11:34 | RAD ---
HISTORY: Altered mental status Study: AP chest Comparison: 08/18/2017 Findings: The heart is mildly enlarged. No congestive heart failure is noted. No infiltrates or pleural effusio ns are identified. The bony thorax is unremarkable. IMPRESSION: Mild cardiomegaly without congestive heart failure Reported By:
--- NOTE | 2018-04-13 11:50 | CT ---
HISTORY: Altered mental status Study: CT brain without contrast Comparison: None Technique: Multiple axial images of the brain were obtained from the skull base to the vertex without administra tion of IV contrast. Findings: Some of the images are degraded to streak artifact. Otherwise as visualized no definite evidence of a cute intraparenchymal hemorrhage or mass can be identified. No extra-axial fluid collections are see n. No alteration in the attenuation of the brain parenchyma can be identified to suggest acute or hardin bacute ischemic change. The ventricular system is symmetric and nondilated. If symptoms or clinical concern persist recommend continued follow-up for further evaluation. IMPRESSION: 1. No acute intracranial process can be identified. Reported By:
[2018-04-13 11:51] LABS: AMMONIA 81 umol/L (11-32)
[2018-04-13 12:04] LABS: ALANINE AMINOTRANSFERASE 17 Units/L (12-78); ALBUMIN 1.8 g/dL (3.4-5.0); ALKALINE PHOSPHATASE 87 Units/L (46-116); ASPARTATE AMINO TRANSFERASE 73 Units/L (15-37); BLOOD UREA NITROGEN 43 mg/dL (7-18); CALCIUM 8.4 mg/dL (8.5-10.1); CARBON DIOXIDE 23.2 mmol/L (21-32); CHLORIDE 109 mmol/L (98-107); COR CA(FOR HYPOALB) 10.2 mg/dL (8.5-10.1); CREATININE 3.62 mg/dL (0.70-1.30); SODIUM 139 mmol/L (136-145); TOTAL PROTEIN 7.7 g/dL (6.4-8.2); eGFR NON BLACK RACES 19 (>60)
[2018-04-13 12:06] LABS: LACTIC ACID 4.1 mmol/L (0.4-2.0)
[2018-04-13 12:11] LABS: BASOPHILS # (AUTO) 0.1 X10^3/uL (0.0-0.1); BASOPHILS % (AUTO) 0.3 % (0.2-1.0); EOSINOPHILS # (AUTO) 0.1 x10^3/uL (0.0-0.2); EOSINOPHILS % (AUTO) 0.7 % (0.9-2.9); HEMATOCRIT 27.2 % (42.0-54.0); HEMOGLOBIN 9.5 g/dL (13.5-18.0); LYMPHOCYTES # (AUTO) 1.4 X10^3/uL (1.3-2.9); LYMPHOCYTES % (AUTO) 9.9 % (21.0-51.0); MEAN CORPUSCULAR HEMOGLOBIN 37.1 pg (27.0-34.0); MEAN CORPUSCULAR HGB CONC 35.1 g/dL (33.0-35.0); MEAN CORPUSCULAR VOLUME 105.7 fL (80.0-100.0); MEAN PLATELET VOLUME 9.9 fL (7.4-11.0); MONOCYTES % (AUTO) 7.2 % (0.0-13.0); NEUTROPHILS # (AUTO) 11.8 x10^3/uL (2.2-4.8); NEUTROPHILS % (AUTO) 81.9 % (42.0-75.0); PLATELET COUNT 80 X10^3/uL (150.0-450.0); RED BLOOD COUNT 2.57 X10^6/uL (4.7-6.0); RED CELL DISTRIBUTION WIDTH 15.7 % (11.6-16.5)
[2018-04-13 12:25] LABS: WHITE BLOOD COUNT 16.4 X10^3/uL (3.6-10.0)
[2018-04-13 12:27] LABS: CRENATED RBC 1+; GIANT PLATELET NOTED; HYPOCHROMASIA SLIGHT; PLATELET MORPHOLOGY COMMENT ABNORMAL (NORMAL)
--- NOTE | 2018-04-13 13:29 | DR.GENAD ---
HPI PCP Primary Care Physician: MARQUEZ Complaint/Symptoms Chief Complaint:: PATIENT HAS ALTERED MENTAL STATUS THAT STARTED LAST NIGHT. PATIENT HAS MULT. BRUISING TO THE BUTTOCKS ON THE RIGHT SIDE AND LEFT RIB AND ARM. PATIENT IS ALERT BUT NOT TALKING AT THIS TIME. Source History Provided: Family Member and EMS Mode of Arrival Mode of Arrival: EMS Timing Onset of Chief Complaint: 04/12/18 PMH PMH Past Medical History: Yes Past Medical History: Cirrhosis, Hypertension and Liver Disease Past Surgical History: No Surgical History: No History Family History History of Family Medical Conditions: Yes Family Medical History: Diabetes Mellitus and Hypertension Social History Does patient currently use any type of tobacco product: Yes Have you used tobacco products in the last 12 months: Yes Type of Tobacco Use: Cigarettes Does any household member use tobacco: No Alcohol Use: None Do you use any recreational Drugs:: No Lives With: Family Lives Where: Home infectious screening In the last 2 months have you had wt loss of >10#?: NO Have you had fever, night sweats or hemotysis?: No Have you traveled outside the country in the last 6 months?: No Isolation: Standard ROS Review of Systems Constitutional: Weakness Eyes: No Symptoms Reported ENTM: No Symptoms Reported Respiratoy: No Symptoms Reported Cardiovascular: No Symptoms Reported Gastrointestinal/Abdominal: Nausea and Vomiting Genitourinary: No Symptoms Reported Neurological: Other (Decreased responsivenness) Musculoskeletal: No Symptoms Reported Integumentary: No Symptoms Reported Hematologic/Lymphatic: Easy Bruising Endocrine: No Symptoms Reported Psychiatric: No Symptoms Reported All Other Systems: Reviewed and Negative PE Vital Signs Vitals: Temperature 98.9 F Pulse Rate [Apical] 72 Pulse Rate 82 Respiratory Rate 20 Blood Pressure [Right Arm] 112/63 Blood Pressure [Left Arm] 131/65 Blood Pressure 119/82 O2 Sat by Pulse Oximetry 100 General Limitations: Altered Mental Status General Appearance: Lethargic and Obtunded Head Head Exam: Normal Inspection, Atraumatic and Normocephalic Eyes Eye exam: Normal Appearance and Scleral Icterus ENT ENT Exam: Normal Exam External Ear Exam: Normal External Inspection Mouth Exam: Normal Inspection Neck Neck Exam: Normal Inspection, Full ROM and Trachea Midline Chest Chest Inspection: Normal Inspection and Symmetric Chest Wall Rise Respiratory Respiratory Exam: Normal Lung Sounds Bilat Cardiovascular Cardiovascular Exam: Regular Rate, Normal Rhythm, +S1 and +S2 Abdominal Exam Abdominal Exam: Normal Inspection, Normal Bowel Sounds and Soft Extremities Extremities Exam: Normal Inspection Back Back Exam: Normal Inspection Neurologic Neurological Exam: Other (obtunded) Skin Skin Exam: Cyanosis (on right buttock/left arm) COURSE Reevaluation 1st: Unchanged 2nd: Unchanged Education/Counseling Education/Counseling: Family and Education Educated On: Treatment, Diagnosis, Prognosis and Needs for Follow Up ROR Labs Reviewed Result Diagrams: 04/13/18 11:30 04/13/18 11:30 Laboratory: WBC 16.4 X10^3/uL (3.6-10.0) H 04/13/18 11:30 RBC 2.57 X10^6/uL (4.7-6.0) L 04/13/18 11:30 Hgb 9.5 g/dL (13.5-18.0) L 04/13/18 11:30 Hct 27.2 % (42.0-54.0) L 04/13/18 11:30 MCV 105.7 fL (80.0-100.0) H 04/13/18 11:30 MCH 37.1 pg (27.0-34.0) H 04/13/18 11:30 MCHC 35.1 g/dL (33.0-35.0) H 04/13/18 11:30 RDW 15.7 % (11.6-16.5) 04/13/18 11:30 Plt Count 80 X10^3/uL (150.0-450.0) L 04/13/18 11:30 Plt Count Comment Decreased (ADEQUATE) 04/13/18 11:30 MPV 9.9 fL (7.4-11.0) 04/13/18 11:30 Neut % (Auto) 81.9 % (42.0-75.0) H 04/13/18 11:30 Lymph % (Auto) 9.9 % (21.0-51.0) L 04/13/18 11:30 [place] % (Auto) 7.2 % (0.0-13.0) 04/13/18 11:30 Eos % (Auto) 0.7 % (0.9-2.9) L 04/13/18 11:30 Baso % (Auto) 0.3 % (0.2-1.0) 04/13/18 11:30 Neut # (Auto) 11.8 x10^3/uL (2.2-4.8) H 04/13/18 11:30 Lymph # (Auto) 1.4 X10^3/uL (1.3-2.9) 04/13/18 11:30 [place] # (Auto) 1.0 x10^3/uL (0.3-0.8) H 04/13/18 11:30 Eos # (Auto) 0.1 x10^3/uL (0.0-0.2) 04/13/18 11:30 Baso # (Auto) 0.1 X10^3/uL (0.0-0.1) 04/13/18 11:30 Absolute Nucleated RBC 0.0 /100WBC 04/13/18 11:30 Giant Platelets Noted 04/13/18 11:30 Plt Morphology Comment Abnormal (NORMAL) 04/13/18 11:30 RBC Morphology Abnormal (NORMAL) 04/13/18 11:30 Hypochromasia Slight A 04/13/18 11:30 Macrocytosis 1+ A 04/13/18 11:30 Crenated Cell 1+ A 04/13/18 11:30 Sodium 139 mmol/L (136-145) 04/13/18 11:30 Corrected Sodium TNP 04/13/18 11:30 Potassium 4.4 mmol/L (3.5-5.1) 04/13/18 11:30 Chloride 109 mmol/L (98-107) H 04/13/18 11:30 Carbon Dioxide 23.2 mmol/L (21-32) 04/13/18 11:30 BUN 43 mg/dL (7-18) H 04/13/18 11:30 Creatinine 3.62 mg/dL (0.70-1.30) H 04/13/18 11:30 Est GFR (MDRD) Af Amer 23 (>60) L 04/13/18 11:30 Est GFR (MDRD) Non-Af 19 (>60) L 04/13/18 11:30 Glucose 96 mg/dL (65-99) 04/13/18 11:30 Lactic Acid 4.1 mmol/L (0.4-2.0) H 04/13/18 11:30 Calcium 8.4 mg/dL (8.5-10.1) L 04/13/18 11:30 Corrected Calcium 10.2 mg/dL (8.5-10.1) H 04/13/18 11:30 Total Bilirubin 8.90 mg/dL (0.2-1.0) H 04/13/18 11:30 AST 73 Units/L (15-37) H 04/13/18 11:30 ALT 17 Units/L (12-78) 04/13/18 11:30 Alkaline Phosphatase 87 Units/L (46-116) 04/13/18 11:30 Ammonia 81 umol/L (11-32) H 04/13/18 11:30 Total Protein 7.7 g/dL (6.4-8.2) 04/13/18 11:30 Albumin 1.8 g/dL (3.4-5.0) L 04/13/18 11:30 Globulin 5.9 g/dL (2.5-4.5) H 04/13/18 11:30 Albumin/Globulin Ratio 0.3 Ratio (1.1-2.1) L 04/13/18 11:30 Specimen Type Catherized urine 04/13/18 13:21 Urine Color Dark yellow (YELLOW) 04/13/18 13:21 Urine Appearance Hazy (CLEAR) 04/13/18 13:21 Urine pH 6.0 (5.0 - 8.0) 04/13/18 13:21 Ur Specific [place] 1.010 (1.000-1.030) 04/13/18 13:21 Urine Protein Negative (NEGATIVE) 04/13/18 13:21 Urine Glucose (UA) Negative (NEGATIVE) 04/13/18 13:21 Urine Ketones Negative (NEGATIVE) 04/13/18 13:21 Urine Occult Blood 1+ (NEGATIVE) 04/13/18 13:21 Urine Nitrite Negative (NEGATIVE) 04/13/18 13:21 Urine Bilirubin Negative (NEGATIVE) 04/13/18 13:21 Urine Urobilinogen Normal (NORMAL) 04/13/18 13:21 Ur Leukocyte Esterase 1+ (NEGATIVE) 04/13/18 13:21 Urine RBC 0-2 /HPF (NONE SEEN) 04/13/18 13:21 Urine WBC 0-2 /HPF (NONE SEEN) 04/13/18 13:21 Ur Squamous Epith Cells Negative /HPF (NEGATIVE) 04/13/18 13:21 Urine Bacteria Negative /HPF (NEGATIVE) 04/13/18 13:21 Ur Culture Indicated? No/not indicated 04/13/18 13:21 Diagnosis Discharge Problem: Acute metabolic encephalopathy, Thrombocytopathia, Renal failure (ARF), acute on chronic
[2018-04-13 13:33] LABS: BILIRUBIN,URINE NEGATIVE (NEGATIVE); BLOOD/HEMOGLOBIN,URINE 1+ (NEGATIVE); GLUCOSE, URINE NEGATIVE (NEGATIVE); KETONES,URINE NEGATIVE (NEGATIVE); LEUKOCYTE ESTERASE ,URINE 1+ (NEGATIVE); NITRITES,URINE NEGATIVE (NEGATIVE); PROTEIN,URINE NEGATIVE (NEGATIVE); UROBILINOGEN,URINE NORMAL (NORMAL)
[2018-04-13 13:38] LABS: APPEARANCE,URINE HAZY (CLEAR); BACTERIA,URINE NEGATIVE /HPF (NEGATIVE); COLOR,URINE DARK YELLOW (YELLOW); RBC,URINE 0-2 /HPF (NONE SEEN); SQUAMOUS EPITHELIAL CELL,UR NEGATIVE /HPF (NEGATIVE)
[2018-04-13] MEDS ORDERED: ATIVAN INJ 2 MG VIAL ONE (15:49)
[2018-04-13] MEDS ORDERED: ATIVAN INJ 2 MG VIAL IVP ONE (15:49)
--- NOTE | 2018-04-13 16:46 | RAD ---
HISTORY: Nasogastric tube placement. Study: KUB exam. Comparison: Abdominopelvic CT exam dated 03/06/2018. Findings: Evaluation of the abdomen demonstrates multiple nonspecific dilated loops of small and large bowel . Please correlate for obstruction. No pathological soft tissue mass effect or calcification can be obs erved. There is a nasogastric tube whose tip overlies the stomach. This extends beyond the GE juncti on on this examination. The bony structures are grossly intact. IMPRESSION: Nasogastric tube in good position, its tip overlying the stomach. Nonspecific dilatation of the small bowel and stomach observed. Reported By:
[2018-04-13 16:47] VITALS: BMI 28.5
[2018-04-13] MEDS ORDERED: NS 500 ML IV 500 ML IV ONE (16:48)
[2018-04-13] MEDS: NS 1000 ML 1,000 ML IV SCH ×2 (17:07→20:57)
[2018-04-13] MEDS ORDERED: CHRONULAC ONE (17:32)
[2018-04-13] MEDS: CHRONULAC PO SCH (17:39)
[2018-04-13] MEDS: XIFAXAN PO SCH (20:27)
[2018-04-13] MEDS ORDERED: VALIUM INJ IM PRN (23:16)
[2018-04-13] MEDS: ATIVAN INJ 2 MG VIAL IVP PRN (23:54)
[2018-04-14] MEDS: NS 1000 ML 1,000 ML IV SCH ×6 (01:08→17:34)
[2018-04-14 06:40] LABS: ALANINE AMINOTRANSFERASE 30 Units/L (12-78); ALBUMIN 1.7 g/dL (3.4-5.0); ALKALINE PHOSPHATASE 85 Units/L (46-116); ASPARTATE AMINO TRANSFERASE 84 Units/L (15-37); BLOOD UREA NITROGEN 56 mg/dL (7-18); CALCIUM 8.1 mg/dL (8.5-10.1); CARBON DIOXIDE 20.6 mmol/L (21-32); CHLORIDE 110 mmol/L (98-107); COR CA(FOR HYPOALB) 9.9 mg/dL (8.5-10.1); CREATININE 3.56 mg/dL (0.70-1.30); SODIUM 141 mmol/L (136-145); TOTAL PROTEIN 7.3 g/dL (6.4-8.2); eGFR NON BLACK RACES 20 (>60)
[2018-04-14 06:43] LABS: LACTIC ACID 2.7 mmol/L (0.4-2.0)
[2018-04-14 06:47] LABS: BASOPHILS # (AUTO) 0.1 X10^3/uL (0.0-0.1); BASOPHILS % (AUTO) 0.5 % (0.2-1.0); EOSINOPHILS # (AUTO) 0.2 x10^3/uL (0.0-0.2); EOSINOPHILS % (AUTO) 1.7 % (0.9-2.9); HEMATOCRIT 24.2 % (42.0-54.0); HEMOGLOBIN 8.5 g/dL (13.5-18.0); LYMPHOCYTES # (AUTO) 1.3 X10^3/uL (1.3-2.9); LYMPHOCYTES % (AUTO) 12.9 % (21.0-51.0); MEAN CORPUSCULAR HEMOGLOBIN 37.4 pg (27.0-34.0); MEAN CORPUSCULAR HGB CONC 35.3 g/dL (33.0-35.0); MEAN CORPUSCULAR VOLUME 105.8 fL (80.0-100.0); MEAN PLATELET VOLUME 9.4 fL (7.4-11.0); MONOCYTES # (AUTO) 0.8 x10^3/uL (0.3-0.8); MONOCYTES % (AUTO) 8.4 % (0.0-13.0); NEUTROPHILS # (AUTO) 7.5 x10^3/uL (2.2-4.8); NEUTROPHILS % (AUTO) 76.5 % (42.0-75.0); PLATELET COUNT 69 X10^3/uL (150.0-450.0); RED BLOOD COUNT 2.28 X10^6/uL (4.7-6.0); RED CELL DISTRIBUTION WIDTH 15.7 % (11.6-16.5)
[2018-04-14 07:06] LABS: AMMONIA 45 umol/L (11-32)
[2018-04-14 07:13] LABS: GIANT PLATELET NOTED; PLATELET MORPHOLOGY COMMENT NORMAL (NORMAL)
[2018-04-14 07:14] LABS: CRENATED RBC SLIGHT; HYPOCHROMASIA SLIGHT
[2018-04-14] MEDS: CHRONULAC PO SCH ×2 (08:12→21:01)
[2018-04-14] MEDS: PROTONIX INJ 40 MG VIAL IVP SCH (08:12)
[2018-04-14] MEDS: XIFAXAN PO SCH ×2 (08:12→21:01)
[2018-04-14] MEDS: ATIVAN INJ 2 MG VIAL IVP PRN ×3 (08:45→21:30)
[2018-04-14] MEDS ORDERED: LACTULOSE 20 GM NG SCH (09:00)
[2018-04-14] MEDS ORDERED: NS 1000 ML 1,000 ML IV ONE ×3 (09:31→18:37)
--- NOTE | 2018-04-14 09:47 | DR.H&P ---
H&P Allergies Allergies Allergy/AdvReac Type Severity Reaction Status Date / Time No Known Drug Allergies Allergy Verified 08/18/17 09:03 History of Present Illness History of Present Illness: weakness and confusion Past Medical History Past Medical History: Cirrhosis, Hypertension and Liver Disease Past Surgical History Surgical History: Other Family History Family Medical History: Diabetes Mellitus and Hypertension Social History Does patient currently use any type of tobacco product: Yes Have you used tobacco products in the last 12 months: Yes Type of Tobacco Use: Cigarettes How many years tobacco product used: 33 Does any household member use tobacco: No Alcohol Use: None Drug Use: None Medications Home Medications: No Known Drug Allergies Allergy (Verified 08/18/17 09:03) CONTINUE taking the following medications lactulose 10 g PO DAILY 04/13/18 [History] magnesium 250 mg PO HS 04/13/18 [History] [id number] acid [Centrum Complete] 1 tab PO HS 04/13/18 [History] potassium 1 tab PO DAILY 04/13/18 [History] spironolactone 25 mg PO QDAY 04/13/18 [History] Review of Systems Constitutional: Weakness Eyes: No Symptoms Reported ENT: No Symptoms Reported Respiratory: No Symptoms Reported Cardiovascular: No Symptoms Reported Gastrointestinal: Vomiting and Diarrhea Genitourinary: No Symptoms Reported Musculoskeletal: No Symptoms Reported Skin: Jaundice Neurological: Weakness and Confusion Physical Exam Vital Signs: Temperature 99.1 F Pulse Rate [Apical] 82 Pulse Rate 82 Respiratory Rate 17 Blood Pressure [Right Arm] 122/58 Blood Pressure [Left Arm] 131/65 Blood Pressure 119/82 O2 Sat by Pulse Oximetry 100 Oriented: Not Oriented Eyes: Normal Ear: Normal Nose: Normal Throat: Normal Respiratory: Clear Throughout Cardiovascular: Normal : Normal Auscultation: Bowel Sounds: Normal Tenderness: Diffuse (mild) Skin: Normal Musculoskeletal: Normal Psychiatric: Agitation Speech Pattern: Slurred Assessment/Plan (1) Increased ammonia level: Status: Acute Plan: restart xifaxan, lactulose per ng tube (2) Acute renal failure: Status: Acute Plan: lasix was recently added to regimine, and apparently pt has been trying to get his ascites resolved using newly prescribed lasix (3) Moderate dehydration: Status: Acute Plan: stop lasix. fluid boluses and baseline rate
[2018-04-14] MEDS ORDERED: BUTT CREAM (COMPOUND) ONE (12:59)
[2018-04-14] MEDS ORDERED: MULTIVITAMIN IRON FOLIC ACID PO SCH (21:00)
[2018-04-14] MEDS: ULTRAM NG PRN ×2 (21:01→22:50)
[2018-04-14] MEDS: TAB-A-VITE PO SCH (21:02)
[2018-04-15] MEDS: NS 1000 ML 1,000 ML IV SCH ×3 (01:30→11:51)
[2018-04-15 05:45] LABS: AMMONIA 107 umol/L (11-32)
[2018-04-15 05:56] LABS: ALANINE AMINOTRANSFERASE 32 Units/L (12-78); ALBUMIN 1.6 g/dL (3.4-5.0); ALKALINE PHOSPHATASE 80 Units/L (46-116); ASPARTATE AMINO TRANSFERASE 88 Units/L (15-37); BLOOD UREA NITROGEN 57 mg/dL (7-18); CALCIUM 7.6 mg/dL (8.5-10.1); CARBON DIOXIDE 17.7 mmol/L (21-32); COR CA(FOR HYPOALB) 9.5 mg/dL (8.5-10.1); CREATININE 3.27 mg/dL (0.70-1.30); SODIUM 143 mmol/L (136-145); eGFR NON BLACK RACES 22 (>60)
[2018-04-15 05:59] LABS: LACTIC ACID 1.3 mmol/L (0.4-2.0)
[2018-04-15 06:04] LABS: CHLORIDE 116 mmol/L (98-107)
[2018-04-15 07:17] LABS: BASOPHILS % (AUTO) 0.8 % (0.2-1.0); EOSINOPHILS # (AUTO) 0.3 x10^3/uL (0.0-0.2); EOSINOPHILS % (AUTO) 4.3 % (0.9-2.9); HEMATOCRIT 22.3 % (42.0-54.0); HEMOGLOBIN 7.9 g/dL (13.5-18.0); LYMPHOCYTES # (AUTO) 1.4 X10^3/uL (1.3-2.9); MEAN CORPUSCULAR HEMOGLOBIN 37.7 pg (27.0-34.0); MEAN CORPUSCULAR HGB CONC 35.6 g/dL (33.0-35.0); MEAN CORPUSCULAR VOLUME 105.9 fL (80.0-100.0); MONOCYTES # (AUTO) 0.6 x10^3/uL (0.3-0.8); MONOCYTES % (AUTO) 9.8 % (0.0-13.0); NEUTROPHILS % (AUTO) 63.1 % (42.0-75.0); PLATELET COUNT 56 X10^3/uL (150.0-450.0); RED BLOOD COUNT 2.11 X10^6/uL (4.7-6.0); RED CELL DISTRIBUTION WIDTH 16.5 % (11.6-16.5)
[2018-04-15 07:36] LABS: PLATELET MORPHOLOGY COMMENT NORMAL (NORMAL)
[2018-04-15 07:37] LABS: CRENATED RBC 1+
[2018-04-15] MEDS: CHRONULAC PO SCH ×3 (09:00→22:45)
[2018-04-15] MEDS: XIFAXAN PO SCH ×2 (09:00→22:45)
[2018-04-15] MEDS: PROTONIX INJ 40 MG VIAL IVP SCH (09:00)
--- NOTE | 2018-04-15 09:27 | RAD ---
HISTORY: Shortness of breath Study: Review of the chest Comparison: April 13, 2018 Findings: The trachea is midline. The cardiac silhouette is mildly enlarged with slight prominence of the cent ral pulmonary vasculature. No evidence of focal consolidation is appreciated. IMPRESSION: 1. Mild cardiomegaly with slight prominence of the central pulmonary vasculature. Reported By:
--- NOTE | 2018-04-15 11:01 | PCM.PROG ---
Progress Note - Progress Note for Day of Date of Exam: 04/15/18 - Subjective Subjective: [address] MARQUEZ WITH LIVER FAILURE, ADMITTED WITH AMS DUE TO ELEVATED AMMONIA LEVELS. FAMILY REPORTS AMS ONSET TUESDAY PRIOR TO ADMISSION. PT HAS BEEN UNDER THE CARE OF DR MORIN, AND PREVIOUSLY SEEN AT [facility]. PT IN SOFT RESTRAINTS, CONTINUED CONFUSION, LETHARGIC. FAMILY REPORTS "A LITTLE MORE AWAKE" AMMONIA 107 THIS AM. - Past Medical Family Social History Past Med/Fam/Surg Hx: No changes since H&P Allergies: Allergies No Known Drug Allergies Allergy (Verified 08/18/17 09:03) - Review of Systems ROS: No change since H&P - Vital Signs and I&O's Vital Signs: Temperature 98.3 F Pulse Rate [Apical] 75 Pulse Rate 82 Respiratory Rate 14 Blood Pressure [Right Arm] 113/58 Blood Pressure [Left Arm] 131/65 Blood Pressure 119/82 O2 Sat by Pulse Oximetry 100 Intake and Output: Intake & Output 04/12/18 04/13/18 04/14/18 04/15/18 11:59 11:59 11:59 11:59 Intake Total 2214 / 2214 9288 / 9288 Output Total 825 / 825 600 / 600 Balance 1389 / 1389 8688 / 8688 - Physical Exam Oriented: Not Oriented Eyes: Normal Ear: Normal Nose: Normal Throat: Dry Respiratory: Diminished Cardiovascular: Normal : Normal Auscultation: Bowel Sounds: Normal Palpation: Liver Enlarged Tenderness: Diffuse (mild) Skin: Other (JAUNDICE) Musculoskeletal: Normal Psychiatric: Agitation Speech Pattern: Inappropriate - Laboratory and Diagnostics Result Diagrams: 04/15/18 06:49 04/15/18 05:05 Labs: 04/13/18 11:35 Blood Blood Culture - Preliminary 04/13/18 11:30 Blood Blood Culture - Preliminary Laboratory WBC 11.0 X10^3/uL (3.6-10.0) H 04/15/18 06:49 RBC 2.11 X10^6/uL (4.7-6.0) L 04/15/18 06:49 Hgb 7.9 g/dL (13.5-18.0) L 04/15/18 06:49 Hct 22.3 % (42.0-54.0) L 04/15/18 06:49 MCV 105.9 fL (80.0-100.0) H 04/15/18 06:49 MCH 37.7 pg (27.0-34.0) H 04/15/18 06:49 MCHC 35.6 g/dL (33.0-35.0) H 04/15/18 06:49 RDW 16.5 % (11.6-16.5) 04/15/18 06:49 Plt Count 56 X10^3/uL (150.0-450.0) L 04/15/18 06:49 Plt Count Comment Decreased (ADEQUATE) 04/15/18 06:49 MPV 9.0 fL (7.4-11.0) 04/15/18 06:49 Neut % (Auto) 63.1 % (42.0-75.0) 04/15/18 06:49 Lymph % (Auto) 22.0 % (21.0-51.0) 04/15/18 06:49 [place] % (Auto) 9.8 % (0.0-13.0) 04/15/18 06:49 Eos % (Auto) 4.3 % (0.9-2.9) H 04/15/18 06:49 Baso % (Auto) 0.8 % (0.2-1.0) 04/15/18 06:49 Neut # (Auto) 4.0 x10^3/uL (2.2-4.8) 04/15/18 06:49 Lymph # (Auto) 1.4 X10^3/uL (1.3-2.9) 04/15/18 06:49 [place] # (Auto) 0.6 x10^3/uL (0.3-0.8) 04/15/18 06:49 Eos # (Auto) 0.3 x10^3/uL (0.0-0.2) H 04/15/18 06:49 Baso # (Auto) 0.0 X10^3/uL (0.0-0.1) 04/15/18 06:49 Absolute Nucleated RBC 0.1 /100WBC 04/15/18 06:49 Giant Platelets Noted 04/14/18 06:06 Plt Morphology Comment Normal (NORMAL) 04/15/18 06:49 RBC Morphology Abnormal (NORMAL) 04/15/18 06:49 Hypochromasia Slight A 04/14/18 06:06 Macrocytosis 1+ A 04/15/18 06:49 Crenated Cell 1+ A 04/15/18 06:49 Sodium 143 mmol/L (136-145) 04/15/18 05:05 Corrected Sodium TNP 04/15/18 05:05 Potassium 4.0 mmol/L (3.5-5.1) 04/15/18 05:05 Chloride 116 mmol/L (98-107) H* 04/15/18 05:05 Carbon Dioxide 17.7 mmol/L (21-32) L 04/15/18 05:05 BUN 57 mg/dL (7-18) H 04/15/18 05:05 Creatinine 3.27 mg/dL (0.70-1.30) H 04/15/18 05:05 Est GFR (MDRD) Af Amer 26 (>60) L 04/15/18 05:05 Est GFR (MDRD) Non-Af 22 (>60) L 04/15/18 05:05 Glucose 76 mg/dL (65-99) 04/15/18 05:05 Lactic Acid 1.3 mmol/L (0.4-2.0) 04/15/18 05:05 Calcium 7.6 mg/dL (8.5-10.1) L 04/15/18 05:05 Corrected Calcium 9.5 mg/dL (8.5-10.1) 04/15/18 05:05 Total Bilirubin 5.30 mg/dL (0.2-1.0) H 04/15/18 05:05 AST 88 Units/L (15-37) H 04/15/18 05:05 ALT 32 Units/L (12-78) 04/15/18 05:05 Alkaline Phosphatase 80 Units/L (46-116) 04/15/18 05:05 Ammonia 107 umol/L (11-32) H 04/15/18 05:05 Total Protein 7.0 g/dL (6.4-8.2) 04/15/18 05:05 Albumin 1.6 g/dL (3.4-5.0) L 04/15/18 05:05 Globulin 5.4 g/dL (2.5-4.5) H 04/15/18 05:05 Albumin/Globulin Ratio 0.3 Ratio (1.1-2.1) L 04/15/18 05:05 Specimen Type Catherized urine 04/13/18 13:21 Urine Color Dark yellow (YELLOW) 04/13/18 13:21 Urine Appearance Hazy (CLEAR) 04/13/18 13:21 Urine pH 6.0 (5.0 - 8.0) 04/13/18 13:21 Ur Specific [place] 1.010 (1.000-1.030) 04/13/18 13:21 Urine Protein Negative (NEGATIVE) 04/13/18 13:21 Urine Glucose (UA) Negative (NEGATIVE) 04/13/18 13:21 Urine Ketones Negative (NEGATIVE) 04/13/18 13:21 Urine Occult Blood 1+ (NEGATIVE) 04/13/18 13:21 Urine Nitrite Negative (NEGATIVE) 04/13/18 13:21 Urine Bilirubin Negative (NEGATIVE) 04/13/18 13:21 Urine Urobilinogen Normal (NORMAL) 04/13/18 13:21 Ur Leukocyte Esterase 1+ (NEGATIVE) 04/13/18 13:21 Urine RBC 0-2 /HPF (NONE SEEN) 04/13/18 13:21 Urine WBC 0-2 /HPF (NONE SEEN) 04/13/18 13:21 Ur Squamous Epith Cells Negative /HPF (NEGATIVE) 04/13/18 13:21 Urine Bacteria Negative /HPF (NEGATIVE) 04/13/18 13:21 Ur Culture Indicated? No/not indicated 04/13/18 13:21 - Plan (1) Liver failure Status: Acute Plan: CONTINUE CARDIAC MONITORING, NG TUBE. SUPPLEMENTAL O2, STRICT I & OS. LACTULOSE TID, CONTINUE XIFAXIN. BP MONITORING, SUPPORTIVE CARE. CXR THIS AM (2) Hepatic steatosis Status: Acute (3) Hepatic encephalopathy Status: Acute (4) Acute renal failure Status: Acute Plan: lasix was recently added to regimine, and apparently pt has been trying to get his ascites resolved using newly prescribed lasix (5) GERD (gastroesophageal reflux disease) Status: Chronic Qualifiers: Esophagitis presence: esophagitis presence not specified Qualified Code(s) : K21.9 - Gastro-esophageal reflux disease without esophagitis
[2018-04-15] MEDS ORDERED: CHRONULAC PO SCH (14:00)
[2018-04-15] MEDS ORDERED: AQUA-MEPHYTON ADULT INJ IV ONE (15:56)
[2018-04-15] MEDS ORDERED: AQUA-MEPHYTON ADULT INJ ONE (16:03)
[2018-04-15] MEDS: TAB-A-VITE PO SCH (22:45)
[2018-04-15] MEDS: AQUA-MEPHYTON ADULT INJ SC SCH (23:13)
[2018-04-15] MEDS: ATIVAN INJ 2 MG VIAL IVP PRN (23:33)
[2018-04-16] MEDS: NS 1000 ML 1,000 ML IV SCH ×4 (02:11→18:49)
[2018-04-16] MEDS: CHRONULAC PO SCH ×4 (02:12→21:38)
[2018-04-16] MEDS: AQUA-MEPHYTON ADULT INJ SC SCH ×2 (04:49→09:53)
[2018-04-16 06:00] LABS: BASOPHILS % (AUTO) 0.5 % (0.2-1.0); EOSINOPHILS # (AUTO) 0.2 x10^3/uL (0.0-0.2); EOSINOPHILS % (AUTO) 1.9 % (0.9-2.9); HEMATOCRIT 24.1 % (42.0-54.0); HEMOGLOBIN 8.6 g/dL (13.5-18.0); LYMPHOCYTES # (AUTO) 0.9 X10^3/uL (1.3-2.9); LYMPHOCYTES % (AUTO) 9.5 % (21.0-51.0); MEAN CORPUSCULAR HEMOGLOBIN 38.2 pg (27.0-34.0); MEAN CORPUSCULAR HGB CONC 35.6 g/dL (33.0-35.0); MEAN CORPUSCULAR VOLUME 107.4 fL (80.0-100.0); MEAN PLATELET VOLUME 8.9 fL (7.4-11.0); MONOCYTES # (AUTO) 0.8 x10^3/uL (0.3-0.8); MONOCYTES % (AUTO) 8.5 % (0.0-13.0); NEUTROPHILS # (AUTO) 7.4 x10^3/uL (2.2-4.8); NEUTROPHILS % (AUTO) 79.6 % (42.0-75.0); PLATELET COUNT 60 X10^3/uL (150.0-450.0); RED BLOOD COUNT 2.24 X10^6/uL (4.7-6.0); RED CELL DISTRIBUTION WIDTH 15.9 % (11.6-16.5); WHITE BLOOD COUNT 9.3 X10^3/uL (3.6-10.0)
[2018-04-16 06:07] LABS: AMMONIA 129 umol/L (11-32)
[2018-04-16 06:20] LABS: ALANINE AMINOTRANSFERASE 39 Units/L (12-78); ALBUMIN 1.7 g/dL (3.4-5.0); ALKALINE PHOSPHATASE 86 Units/L (46-116); ASPARTATE AMINO TRANSFERASE 105 Units/L (15-37); BLOOD UREA NITROGEN 53 mg/dL (7-18); CARBON DIOXIDE 16.8 mmol/L (21-32); COR CA(FOR HYPOALB) 9.8 mg/dL (8.5-10.1); CREATININE 3.23 mg/dL (0.70-1.30); SODIUM 144 mmol/L (136-145); TOTAL PROTEIN 7.5 g/dL (6.4-8.2); eGFR NON BLACK RACES 22 (>60)
--- NOTE | 2018-04-16 06:40 | RAD ---
Examination: Portable AP chest History: SOB Comparison reference 04/15/2018 Findings: Stable heart size with essentially clear lungs. No consolidation, pulmonary edema or large pleural effusion. NG tube is present although the lower tip is not definitely visualized. Impression: No change since 1 day prior. Reported By:
[2018-04-16 06:44] LABS: CHLORIDE 117 mmol/L (98-107)
[2018-04-16 07:09] LABS: CRENATED RBC SLIGHT; PLATELET MORPHOLOGY COMMENT NORMAL (NORMAL)
[2018-04-16] MEDS: PROTONIX INJ 40 MG VIAL IVP SCH (09:36)
[2018-04-16] MEDS: XIFAXAN PO SCH ×2 (09:36→21:36)
[2018-04-16] MEDS: ULTRAM NG PRN (18:00)
[2018-04-16] MEDS: TAB-A-VITE PO SCH (21:37)
[2018-04-17] MEDS: CHRONULAC PO SCH ×4 (02:56→20:56)
[2018-04-17] MEDS: NS 1000 ML 1,000 ML IV SCH ×6 (02:56→20:57)
[2018-04-17 06:12] LABS: AMMONIA 134 umol/L (11-32)
[2018-04-17 06:22] LABS: ALANINE AMINOTRANSFERASE 45 Units/L (12-78); ALBUMIN 1.8 g/dL (3.4-5.0); ALKALINE PHOSPHATASE 92 Units/L (46-116); ASPARTATE AMINO TRANSFERASE 113 Units/L (15-37); BLOOD UREA NITROGEN 48 mg/dL (7-18); CALCIUM 8.1 mg/dL (8.5-10.1); CARBON DIOXIDE 17.5 mmol/L (21-32); COR CA(FOR HYPOALB) 9.9 mg/dL (8.5-10.1); CREATININE 3.05 mg/dL (0.70-1.30); SODIUM 145 mmol/L (136-145); TOTAL PROTEIN 7.9 g/dL (6.4-8.2); eGFR NON BLACK RACES 23 (>60)
[2018-04-17 06:32] LABS: CHLORIDE 118 mmol/L (98-107)
[2018-04-17 06:48] LABS: BASOPHILS % (AUTO) 0.5 % (0.2-1.0); EOSINOPHILS # (AUTO) 0.2 x10^3/uL (0.0-0.2); EOSINOPHILS % (AUTO) 3.1 % (0.9-2.9); HEMATOCRIT 24.1 % (42.0-54.0); HEMOGLOBIN 8.5 g/dL (13.5-18.0); LYMPHOCYTES # (AUTO) 1.1 X10^3/uL (1.3-2.9); LYMPHOCYTES % (AUTO) 15.2 % (21.0-51.0); MEAN CORPUSCULAR HEMOGLOBIN 37.6 pg (27.0-34.0); MEAN CORPUSCULAR HGB CONC 35.3 g/dL (33.0-35.0); MEAN CORPUSCULAR VOLUME 106.5 fL (80.0-100.0); MEAN PLATELET VOLUME 9.1 fL (7.4-11.0); MONOCYTES # (AUTO) 0.6 x10^3/uL (0.3-0.8); MONOCYTES % (AUTO) 8.7 % (0.0-13.0); NEUTROPHILS # (AUTO) 5.3 x10^3/uL (2.2-4.8); NEUTROPHILS % (AUTO) 72.5 % (42.0-75.0); PLATELET COUNT 76 X10^3/uL (150.0-450.0); RED BLOOD COUNT 2.27 X10^6/uL (4.7-6.0); RED CELL DISTRIBUTION WIDTH 16.3 % (11.6-16.5)
[2018-04-17 06:54] LABS: WHITE BLOOD COUNT 9.6 X10^3/uL (3.6-10.0)
[2018-04-17 06:55] LABS: GIANT PLATELET NOTED; PLATELET MORPHOLOGY COMMENT NORMAL (NORMAL)
[2018-04-17 06:56] LABS: CRENATED RBC SLIGHT; HYPOCHROMASIA SLIGHT
--- NOTE | 2018-04-17 08:44 | PCM.PROG ---
Progress Note - Progress Note for Day of Date of Exam: 04/16/18 - Subjective Subjective: [address] MARQUEZ WITH LIVER FAILURE, ADMITTED WITH AMS DUE TO ELEVATED AMMONIA LEVELS. FAMILY REPORTS AMS ONSET TUESDAY PRIOR TO ADMISSION. PT HAS BEEN UNDER THE CARE OF DR MORIN, AND PREVIOUSLY SEEN AT [place]. PT CONTINUES TO BE UNRESPONSIVE THIS AM, DR JONES DISCUSSED WITH SPOUSE TRANSFER TO [place], SPOUSE REFUSED TRANSFER TO [facility] FACILITY. LIMITED DNR SIGNED BY SPOUSE. PT INR 4.41 TREATED WITH VIT K, AMMONIA THIS AM 129. PT LACTULOSE INCREASED TO QID. CONTINUE WITH SUPPORTIVE CARE, CURRENT MEDICATION PLAN, RESP THERAPY, GENTLE SUCTION PRN - Past Medical Family Social History Past Med/Fam/Surg Hx: No changes since H&P Allergies: Allergies No Known Drug Allergies Allergy (Verified 08/18/17 09:03) - Review of Systems ROS: No change since H&P - Vital Signs and I&O's Vital Signs: Temperature 98.0 F Pulse Rate [Apical] 88 Pulse Rate 82 Respiratory Rate 17 Blood Pressure [Right Arm] 112/70 Blood Pressure [Left Arm] 131/65 Blood Pressure 119/82 O2 Sat by Pulse Oximetry 100 Intake and Output: Intake & Output 04/14/18 04/15/18 04/16/18 04/17/18 11:59 11:59 11:59 11:59 Intake Total 2214 / 2214 9288 / 9288 1717 / 1717 1253 / 1253 Output Total 825 / 825 600 / 600 1100 / 1100 1375 / 1375 Balance 1389 / 1389 8688 / 8688 617 / 617 -122 / -122 - Physical Exam Oriented: Not Oriented Eyes: Normal Ear: Normal Nose: Blood Throat: Dry (DRY MM, SMALL BLOOD CLOTS IN SECRETIONS IN ORAL CAVITY) Respiratory: Diminished, Rhonchi Cardiovascular: Normal : Normal Auscultation: Bowel Sounds: Normal Palpation: Liver Enlarged Tenderness: Diffuse (mild) Skin: Decreased Turgur, Bruising, Other (JAUNDICE) Musculoskeletal: Normal Psychiatric: Agitation Speech Pattern: Inappropriate - Laboratory and Diagnostics Result Diagrams: 04/17/18 05:36 04/17/18 05:36 Labs: 04/13/18 11:35 Blood Blood Culture - Preliminary 04/13/18 11:30 Blood Blood Culture - Preliminary Laboratory WBC 9.6 X10^3/uL (3.6-10.0) 04/17/18 05:36 RBC 2.27 X10^6/uL (4.7-6.0) L 04/17/18 05:36 Hgb 8.5 g/dL (13.5-18.0) L 04/17/18 05:36 Hct 24.1 % (42.0-54.0) L 04/17/18 05:36 MCV 106.5 fL (80.0-100.0) H 04/17/18 05:36 MCH 37.6 pg (27.0-34.0) H 04/17/18 05:36 MCHC 35.3 g/dL (33.0-35.0) H 04/17/18 05:36 RDW 16.3 % (11.6-16.5) 04/17/18 05:36 Plt Count 76 X10^3/uL (150.0-450.0) L 04/17/18 05:36 Plt Count Comment Decreased (ADEQUATE) 04/17/18 05:36 MPV 9.1 fL (7.4-11.0) 04/17/18 05:36 Neut % (Auto) 72.5 % (42.0-75.0) 04/17/18 05:36 Lymph % (Auto) 15.2 % (21.0-51.0) L 04/17/18 05:36 [place] % (Auto) 8.7 % (0.0-13.0) 04/17/18 05:36 Eos % (Auto) 3.1 % (0.9-2.9) H 04/17/18 05:36 Baso % (Auto) 0.5 % (0.2-1.0) 04/17/18 05:36 Neut # (Auto) 5.3 x10^3/uL (2.2-4.8) H 04/17/18 05:36 Lymph # (Auto) 1.1 X10^3/uL (1.3-2.9) L 04/17/18 05:36 [place] # (Auto) 0.6 x10^3/uL (0.3-0.8) 04/17/18 05:36 Eos # (Auto) 0.2 x10^3/uL (0.0-0.2) 04/17/18 05:36 Baso # (Auto) 0.0 X10^3/uL (0.0-0.1) 04/17/18 05:36 Absolute Nucleated RBC 0.1 /100WBC 04/17/18 05:36 Giant Platelets Noted 04/17/18 05:36 Plt Morphology Comment Normal (NORMAL) 04/17/18 05:36 RBC Morphology Abnormal (NORMAL) 04/17/18 05:36 Hypochromasia Slight A 04/17/18 05:36 Macrocytosis 1+ A 04/16/18 05:00 Crenated Cell Slight A 04/17/18 05:36 INR Target Range - 04/15/18 14:20 INR 4.41 (0.8-1.3) H 04/15/18 14:20 APTT 58.0 SECONDS (22.9-36.5) H 04/15/18 14:20 PTT Comment - 04/15/18 14:20 Sodium 145 mmol/L (136-145) 04/17/18 05:36 Corrected Sodium TNP 04/17/18 05:36 Potassium 3.7 mmol/L (3.5-5.1) 04/17/18 05:36 Chloride 118 mmol/L (98-107) H* 04/17/18 05:36 Carbon Dioxide 17.5 mmol/L (21-32) L 04/17/18 05:36 BUN 48 mg/dL (7-18) H 04/17/18 05:36 Creatinine 3.05 mg/dL (0.70-1.30) H 04/17/18 05:36 Est GFR (MDRD) Af Amer 28 (>60) L 04/17/18 05:36 Est GFR (MDRD) Non-Af 23 (>60) L 04/17/18 05:36 Glucose 93 mg/dL (65-99) 04/17/18 05:36 Lactic Acid 1.3 mmol/L (0.4-2.0) 04/15/18 05:05 Calcium 8.1 mg/dL (8.5-10.1) L 04/17/18 05:36 Corrected Calcium 9.9 mg/dL (8.5-10.1) 04/17/18 05:36 Total Bilirubin 5.00 mg/dL (0.2-1.0) H 04/17/18 05:36 AST 113 Units/L (15-37) H 04/17/18 05:36 ALT 45 Units/L (12-78) 04/17/18 05:36 Alkaline Phosphatase 92 Units/L (46-116) 04/17/18 05:36 Ammonia 134 umol/L (11-32) H 04/17/18 05:36 Total Protein 7.9 g/dL (6.4-8.2) 04/17/18 05:36 Albumin 1.8 g/dL (3.4-5.0) L 04/17/18 05:36 Globulin 6.1 g/dL (2.5-4.5) H 04/17/18 05:36 Albumin/Globulin Ratio 0.3 Ratio (1.1-2.1) L 04/17/18 05:36 Specimen Type Catherized urine 04/13/18 13:21 Urine Color Dark yellow (YELLOW) 04/13/18 13:21 Urine Appearance Hazy (CLEAR) 04/13/18 13:21 Urine pH 6.0 (5.0 - 8.0) 04/13/18 13:21 Ur Specific [place] 1.010 (1.000-1.030) 04/13/18 13:21 Urine Protein Negative (NEGATIVE) 04/13/18 13:21 Urine Glucose (UA) Negative (NEGATIVE) 04/13/18 13:21 Urine Ketones Negative (NEGATIVE) 04/13/18 13:21 Urine Occult Blood 1+ (NEGATIVE) 04/13/18 13:21 Urine Nitrite Negative (NEGATIVE) 04/13/18 13:21 Urine Bilirubin Negative (NEGATIVE) 04/13/18 13:21 Urine Urobilinogen Normal (NORMAL) 04/13/18 13:21 Ur Leukocyte Esterase 1+ (NEGATIVE) 04/13/18 13:21 Urine RBC 0-2 /HPF (NONE SEEN) 04/13/18 13:21 Urine WBC 0-2 /HPF (NONE SEEN) 04/13/18 13:21 Ur Squamous Epith Cells Negative /HPF (NEGATIVE) 04/13/18 13:21 Urine Bacteria Negative /HPF (NEGATIVE) 04/13/18 13:21 Ur Culture Indicated? No/not indicated 04/13/18 13:21 - Plan (1) Liver failure Status: Acute Plan: CONTINUE CARDIAC MONITORING, NG TUBE. SUPPLEMENTAL O2, RESP CARE AND SUCTION STRICT I & OS. LACTULOSE QID, CONTINUE XIFAXIN. BP MONITORING, SUPPORTIVE CARE (2) Hepatic steatosis Status: Acute (3) Hepatic encephalopathy Status: Acute (4) Acute renal failure Status: Acute Plan: lasix was recently added to regimine, and apparently pt has been trying to get his ascites resolved using newly prescribed lasix (5) GERD (gastroesophageal reflux disease) Status: Chronic Qualifiers: Esophagitis presence: esophagitis presence not specified Qualified Code(s) : K21.9 - Gastro-esophageal reflux disease without esophagitis (6) Thrombocytopathia Status: Acute Plan: MONITOR INR, CONTINUE WITH VITAMIN K ORDERED
[2018-04-17] MEDS: PROTONIX INJ 40 MG VIAL IVP SCH (08:59)
[2018-04-17] MEDS: XIFAXAN PO SCH ×2 (09:00→20:56)
[2018-04-17] MEDS: TAB-A-VITE PO SCH (20:56)
[2018-04-17] MEDS: ULTRAM NG PRN (23:40)
[2018-04-18] MEDS: NS 1000 ML 1,000 ML IV SCH ×3 (01:52→17:02)
[2018-04-18] MEDS: CHRONULAC PO SCH ×4 (01:58→20:59)
[2018-04-18 07:09] LABS: BASOPHILS % (AUTO) 0.4 % (0.2-1.0); EOSINOPHILS # (AUTO) 0.1 x10^3/uL (0.0-0.2); EOSINOPHILS % (AUTO) 1.9 % (0.9-2.9); HEMATOCRIT 22.1 % (42.0-54.0); LYMPHOCYTES # (AUTO) 0.8 X10^3/uL (1.3-2.9); LYMPHOCYTES % (AUTO) 12.8 % (21.0-51.0); MEAN CORPUSCULAR HEMOGLOBIN 38.5 pg (27.0-34.0); MEAN CORPUSCULAR HGB CONC 36.1 g/dL (33.0-35.0); MEAN CORPUSCULAR VOLUME 106.6 fL (80.0-100.0); MONOCYTES # (AUTO) 0.7 x10^3/uL (0.3-0.8); MONOCYTES % (AUTO) 10.3 % (0.0-13.0); NEUTROPHILS # (AUTO) 4.7 x10^3/uL (2.2-4.8); NEUTROPHILS % (AUTO) 74.6 % (42.0-75.0); PLATELET COUNT 64 X10^3/uL (150.0-450.0); RED BLOOD COUNT 2.07 X10^6/uL (4.7-6.0); RED CELL DISTRIBUTION WIDTH 16.6 % (11.6-16.5)
[2018-04-18 07:18] LABS: ALANINE AMINOTRANSFERASE 49 Units/L (12-78); ALBUMIN 1.7 g/dL (3.4-5.0); ALKALINE PHOSPHATASE 85 Units/L (46-116); ASPARTATE AMINO TRANSFERASE 114 Units/L (15-37); BLOOD UREA NITROGEN 42 mg/dL (7-18); CALCIUM 8.2 mg/dL (8.5-10.1); CARBON DIOXIDE 16.8 mmol/L (21-32); CREATININE 2.71 mg/dL (0.70-1.30); SODIUM 146 mmol/L (136-145); TOTAL PROTEIN 7.3 g/dL (6.4-8.2); eGFR NON BLACK RACES 27 (>60)
[2018-04-18 07:23] LABS: AMMONIA 95 umol/L (11-32)
[2018-04-18 07:30] LABS: CHLORIDE 119 mmol/L (98-107)
[2018-04-18 07:42] LABS: WHITE BLOOD COUNT 10.1 X10^3/uL (3.6-10.0)
[2018-04-18 07:43] LABS: GIANT PLATELET NOTED; PLATELET MORPHOLOGY COMMENT NORMAL (NORMAL)
[2018-04-18 07:44] LABS: HYPOCHROMASIA SLIGHT
[2018-04-18 07:45] LABS: CRENATED RBC 1+
[2018-04-18] MEDS: PROTONIX INJ 40 MG VIAL IVP SCH (08:18)
[2018-04-18] MEDS: XIFAXAN PO SCH ×2 (08:18→20:58)
[2018-04-18] MEDS: ULTRAM NG PRN (08:19)
[2018-04-18] MEDS: ALBUMIN HUMAN 25%- 100 ML 100 ML IV SCH ×2 (10:02→20:53)
[2018-04-18] MEDS ORDERED: MORPHINE SULFATE INJ 2 MG INJ ONE (15:52)
[2018-04-18] MEDS: MORPHINE SULFATE INJ 2 MG INJ IVP PRN (16:20)
--- NOTE | 2018-04-18 16:38 | RAD ---
Indication: Difficulty breathing Exam: Portable chest Comparison: 04/16/2018 Findings: The heart is less prominent. The pulmonary vessels are top normal. The lungs are hypoinflat ed with mild linear densities along the lung bases which are less prominent. There is a gastric tube in place which is unchanged. No effusion is seen. Impression: Slight decrease in the heart size with resolving atelectasis or infiltrates along the lung bases. Reported By:
[2018-04-18] MEDS ORDERED: LASIX IVP ONE (17:17)
[2018-04-18] MEDS: TAB-A-VITE PO SCH (20:59)
[2018-04-18] MEDS: INDERAL TAB 10 MG PO SCH (21:00)
[2018-04-19] MEDS: NS 1000 ML 1,000 ML IV SCH ×2 (01:59→17:22)
[2018-04-19] MEDS: CHRONULAC PO SCH ×4 (01:59→21:07)
[2018-04-19 06:34] LABS: BASOPHILS % (AUTO) 0.5 % (0.2-1.0); EOSINOPHILS # (AUTO) 0.1 x10^3/uL (0.0-0.2); EOSINOPHILS % (AUTO) 1.1 % (0.9-2.9); LYMPHOCYTES % (AUTO) 10.4 % (21.0-51.0); MEAN CORPUSCULAR HEMOGLOBIN 38.2 pg (27.0-34.0); MEAN CORPUSCULAR HGB CONC 35.6 g/dL (33.0-35.0); MEAN CORPUSCULAR VOLUME 107.1 fL (80.0-100.0); MEAN PLATELET VOLUME 9.3 fL (7.4-11.0); MONOCYTES % (AUTO) 10.7 % (0.0-13.0); NEUTROPHILS # (AUTO) 7.5 x10^3/uL (2.2-4.8); NEUTROPHILS % (AUTO) 77.3 % (42.0-75.0); PLATELET COUNT 61 X10^3/uL (150.0-450.0); RED BLOOD COUNT 1.76 X10^6/uL (4.7-6.0); RED CELL DISTRIBUTION WIDTH 17.4 % (11.6-16.5); WHITE BLOOD COUNT 9.7 X10^3/uL (3.6-10.0)
[2018-04-19 06:40] LABS: ALBUMIN 2.2 g/dL (3.4-5.0); CALCIUM 8.4 mg/dL (8.5-10.1); CARBON DIOXIDE 17.2 mmol/L (21-32); COR CA(FOR HYPOALB) 9.8 mg/dL (8.5-10.1); CREATININE 2.61 mg/dL (0.70-1.30); TOTAL PROTEIN 6.8 g/dL (6.4-8.2)
[2018-04-19 06:51] LABS: HEMOGLOBIN 6.7 g/dL (13.5-18.0)
[2018-04-19 06:52] LABS: HEMATOCRIT 18.9 % (42.0-54.0)
[2018-04-19 07:00] LABS: BAND NEUTROPHILS % 4 % (0-10); PLATELET MORPHOLOGY COMMENT NORMAL (NORMAL)
[2018-04-19 07:01] LABS: ANISOCYTOSIS 1+; HYPOCHROMASIA 1+
[2018-04-19] MEDS: ULTRAM NG PRN (09:26)
[2018-04-19] MEDS: XIFAXAN PO SCH ×2 (09:26→21:07)
[2018-04-19] MEDS: ALBUMIN HUMAN 25%- 100 ML 100 ML IV SCH ×2 (09:26→21:08)
[2018-04-19] MEDS: PROTONIX INJ 40 MG VIAL IVP SCH (09:26)
[2018-04-19] MEDS: INDERAL TAB 10 MG PO SCH ×3 (09:26→23:09)
[2018-04-19] MEDS ORDERED: NS 500 ML IV 500 ML IV ONE ×2 (09:45→16:28)
[2018-04-19] MEDS: MORPHINE SULFATE INJ 2 MG INJ IVP PRN (18:38)
[2018-04-19 20:43] LABS: HEMATOCRIT 25.2 % (42.0-54.0); HEMOGLOBIN 8.9 g/dL (13.5-18.0)
[2018-04-19] MEDS: TAB-A-VITE PO SCH (21:07)
[2018-04-20] MEDS: CHRONULAC PO SCH ×5 (02:27→21:23)
[2018-04-20] MEDS: NS 1000 ML 1,000 ML IV SCH (02:27)
[2018-04-20 06:22] LABS: BASOPHILS # (AUTO) 0.1 X10^3/uL (0.0-0.1); BASOPHILS % (AUTO) 0.8 % (0.2-1.0); EOSINOPHILS # (AUTO) 0.2 x10^3/uL (0.0-0.2); EOSINOPHILS % (AUTO) 2.6 % (0.9-2.9); HEMATOCRIT 25.5 % (42.0-54.0); HEMOGLOBIN 9.2 g/dL (13.5-18.0); LYMPHOCYTES # (AUTO) 1.1 X10^3/uL (1.3-2.9); LYMPHOCYTES % (AUTO) 12.4 % (21.0-51.0); MEAN CORPUSCULAR HEMOGLOBIN 36.6 pg (27.0-34.0); MEAN CORPUSCULAR HGB CONC 36.2 g/dL (33.0-35.0); MEAN CORPUSCULAR VOLUME 101.1 fL (80.0-100.0); MONOCYTES % (AUTO) 12.1 % (0.0-13.0); NEUTROPHILS # (AUTO) 6.2 x10^3/uL (2.2-4.8); NEUTROPHILS % (AUTO) 72.1 % (42.0-75.0); PLATELET COUNT 59 X10^3/uL (150.0-450.0); RED BLOOD COUNT 2.52 X10^6/uL (4.7-6.0); RED CELL DISTRIBUTION WIDTH 20.3 % (11.6-16.5)
[2018-04-20 06:49] LABS: WHITE BLOOD COUNT 9.3 X10^3/uL (3.6-10.0)
[2018-04-20 06:50] LABS: ANISOCYTOSIS 1+; BAND NEUTROPHILS % 4 % (0-10); HYPOCHROMASIA SLIGHT; PLATELET MORPHOLOGY COMMENT NORMAL (NORMAL)
[2018-04-20 06:51] LABS: CRENATED RBC NOTED
[2018-04-20 06:53] LABS: ALBUMIN 2.8 g/dL (3.4-5.0); CALCIUM 8.8 mg/dL (8.5-10.1); CARBON DIOXIDE 17.3 mmol/L (21-32); COR CA(FOR HYPOALB) 9.8 mg/dL (8.5-10.1); CREATININE 2.37 mg/dL (0.70-1.30); TOTAL PROTEIN 7.5 g/dL (6.4-8.2)
[2018-04-20] MEDS: ALBUMIN HUMAN 25%- 100 ML 100 ML IV SCH ×2 (08:26→21:22)
[2018-04-20] MEDS: PROTONIX INJ 40 MG VIAL IVP SCH (08:27)
[2018-04-20] MEDS: INDERAL TAB 10 MG PO SCH ×2 (08:27→21:22)
[2018-04-20] MEDS: ULTRAM NG PRN (08:27)
[2018-04-20] MEDS: XIFAXAN PO SCH ×2 (08:27→21:21)
[2018-04-20] MEDS: LR 1000 ML IV 1,000 ML IV SCH ×2 (09:24→17:31)
[2018-04-20] MEDS: ZOSYN VIAL 2.25 GRAMS 2.25 G in NS 100 ML IV + SPIKE MINIBAG* 100 ML IV SCH ×3 (10:17→21:21)
[2018-04-20] MEDS ORDERED: ATIVAN INJ 2 MG VIAL IVP ONE (13:08)
[2018-04-20] MEDS: TAB-A-VITE PO SCH (21:22)
[2018-04-21] MEDS: ULTRAM NG PRN ×3 (00:03→21:22)
[2018-04-21] MEDS: LR 1000 ML IV 1,000 ML IV SCH (02:05)
[2018-04-21] MEDS: CHRONULAC PO SCH ×4 (02:06→20:45)
[2018-04-21] MEDS: ZOSYN VIAL 2.25 GRAMS 2.25 G in NS 100 ML IV + SPIKE MINIBAG* 100 ML IV SCH ×3 (05:17→21:22)
[2018-04-21 06:07] LABS: CALCIUM 8.8 mg/dL (8.5-10.1); CARBON DIOXIDE 19.9 mmol/L (21-32); COR CA(FOR HYPOALB) 9.6 mg/dL (8.5-10.1); CREATININE 2.25 mg/dL (0.70-1.30); TOTAL PROTEIN 7.1 g/dL (6.4-8.2)
[2018-04-21 06:13] LABS: BASOPHILS % (AUTO) 0.3 % (0.2-1.0); EOSINOPHILS # (AUTO) 0.1 x10^3/uL (0.0-0.2); EOSINOPHILS % (AUTO) 1.2 % (0.9-2.9); HEMATOCRIT 23.6 % (42.0-54.0); HEMOGLOBIN 8.5 g/dL (13.5-18.0); LYMPHOCYTES # (AUTO) 1.2 X10^3/uL (1.3-2.9); LYMPHOCYTES % (AUTO) 12.6 % (21.0-51.0); MEAN CORPUSCULAR HGB CONC 36.2 g/dL (33.0-35.0); MEAN CORPUSCULAR VOLUME 102.4 fL (80.0-100.0); MEAN PLATELET VOLUME 8.8 fL (7.4-11.0); MONOCYTES # (AUTO) 0.7 x10^3/uL (0.3-0.8); MONOCYTES % (AUTO) 7.5 % (0.0-13.0); NEUTROPHILS # (AUTO) 7.2 x10^3/uL (2.2-4.8); NEUTROPHILS % (AUTO) 78.4 % (42.0-75.0); PLATELET COUNT 54 X10^3/uL (150.0-450.0); RED CELL DISTRIBUTION WIDTH 20.7 % (11.6-16.5)
[2018-04-21 06:32] LABS: WHITE BLOOD COUNT 10.8 X10^3/uL (3.6-10.0)
[2018-04-21 06:33] LABS: PLATELET MORPHOLOGY COMMENT NORMAL (NORMAL)
[2018-04-21 06:38] LABS: CRENATED RBC NOTED
[2018-04-21] MEDS ORDERED: NS 1/2 1000 ML IV 1,000 ML IV SCH (09:00)
[2018-04-21] MEDS: INDERAL TAB 10 MG PO SCH ×2 (09:15→21:21)
[2018-04-21] MEDS: PROTONIX INJ 40 MG VIAL IVP SCH (09:15)
[2018-04-21] MEDS: XIFAXAN PO SCH ×2 (09:15→21:21)
[2018-04-21] MEDS ORDERED: ATIVAN INJ 2 MG VIAL IVP PRN (09:23)
[2018-04-21] MEDS ORDERED: LANTISEPTIC ONE (09:24)
[2018-04-21] MEDS ORDERED: NS 1/2 1000 ML IV 1,000 ML IV ONE ×2 (09:36→20:38)
[2018-04-21] MEDS: LANTISEPTIC TOP PRN (09:52)
[2018-04-21] MEDS: NS 1/2 1000 ML IV 1,000 ML IV SCH ×2 (11:00→22:00)
[2018-04-21] MEDS: TAB-A-VITE PO SCH (21:21)
[2018-04-22] MEDS: CHRONULAC PO SCH ×4 (02:38→20:28)
[2018-04-22] MEDS: ZOSYN VIAL 2.25 GRAMS 2.25 G in NS 100 ML IV + SPIKE MINIBAG* 100 ML IV SCH ×3 (05:45→22:33)
[2018-04-22] MEDS ORDERED: NS 1/2 1000 ML IV 1,000 ML IV ONE ×2 (06:27→19:58)
[2018-04-22] MEDS: NS 1/2 1000 ML IV 1,000 ML IV SCH ×3 (06:40→20:29)
[2018-04-22 07:00] LABS: BASOPHILS % (AUTO) 0.3 % (0.2-1.0); EOSINOPHILS # (AUTO) 0.2 x10^3/uL (0.0-0.2); EOSINOPHILS % (AUTO) 2.1 % (0.9-2.9); HEMATOCRIT 23.5 % (42.0-54.0); HEMOGLOBIN 8.3 g/dL (13.5-18.0); LYMPHOCYTES # (AUTO) 1.6 X10^3/uL (1.3-2.9); LYMPHOCYTES % (AUTO) 13.6 % (21.0-51.0); MEAN CORPUSCULAR HEMOGLOBIN 36.2 pg (27.0-34.0); MEAN CORPUSCULAR HGB CONC 35.4 g/dL (33.0-35.0); MEAN CORPUSCULAR VOLUME 102.2 fL (80.0-100.0); MONOCYTES # (AUTO) 0.7 x10^3/uL (0.3-0.8); MONOCYTES % (AUTO) 6.4 % (0.0-13.0); NEUTROPHILS # (AUTO) 8.8 x10^3/uL (2.2-4.8); NEUTROPHILS % (AUTO) 77.6 % (42.0-75.0); PLATELET COUNT 49 X10^3/uL (150.0-450.0); RED CELL DISTRIBUTION WIDTH 20.6 % (11.6-16.5); WHITE BLOOD COUNT 11.4 X10^3/uL (3.6-10.0)
[2018-04-22 07:06] LABS: PLATELET MORPHOLOGY COMMENT NORMAL (NORMAL)
[2018-04-22 07:08] LABS: AMMONIA 28 umol/L (11-32)
[2018-04-22 07:09] LABS: ANISOCYTOSIS 1+
[2018-04-22 07:11] LABS: CRENATED RBC NOTED
[2018-04-22 07:34] LABS: ALANINE AMINOTRANSFERASE 52 Units/L (12-78); ALBUMIN 2.7 g/dL (3.4-5.0); ALKALINE PHOSPHATASE 68 Units/L (46-116); ASPARTATE AMINO TRANSFERASE 116 Units/L (15-37); BLOOD UREA NITROGEN 29 mg/dL (7-18); CALCIUM 8.4 mg/dL (8.5-10.1); CARBON DIOXIDE 22.3 mmol/L (21-32); COR CA(FOR HYPOALB) 9.4 mg/dL (8.5-10.1); CREATININE 2.15 mg/dL (0.70-1.30); TOTAL PROTEIN 6.8 g/dL (6.4-8.2); eGFR NON BLACK RACES 35 (>60)
[2018-04-22 07:39] LABS: SODIUM 160 mmol/L (136-145)
[2018-04-22 07:47] LABS: CHLORIDE 129 mmol/L (98-107)
[2018-04-22] MEDS: PROTONIX INJ 40 MG VIAL IVP SCH (09:46)
[2018-04-22] MEDS: XIFAXAN PO SCH ×2 (09:47→20:28)
[2018-04-22] MEDS: INDERAL TAB 10 MG PO SCH ×2 (09:47→20:28)
[2018-04-22] MEDS: TAB-A-VITE PO SCH (20:28)
[2018-04-22] MEDS: ULTRAM NG PRN (20:29)
[2018-04-23] MEDS: CHRONULAC PO SCH ×5 (01:34→22:12)
[2018-04-23 06:00] LABS: BASOPHILS % (AUTO) 0.3 % (0.2-1.0); EOSINOPHILS # (AUTO) 0.2 x10^3/uL (0.0-0.2); EOSINOPHILS % (AUTO) 1.6 % (0.9-2.9); HEMATOCRIT 23.4 % (42.0-54.0); HEMOGLOBIN 8.2 g/dL (13.5-18.0); LYMPHOCYTES # (AUTO) 1.5 X10^3/uL (1.3-2.9); LYMPHOCYTES % (AUTO) 11.4 % (21.0-51.0); MEAN CORPUSCULAR HEMOGLOBIN 36.2 pg (27.0-34.0); MEAN CORPUSCULAR HGB CONC 35.3 g/dL (33.0-35.0); MEAN CORPUSCULAR VOLUME 102.7 fL (80.0-100.0); MEAN PLATELET VOLUME 9.4 fL (7.4-11.0); MONOCYTES # (AUTO) 0.8 x10^3/uL (0.3-0.8); NEUTROPHILS # (AUTO) 10.7 x10^3/uL (2.2-4.8); NEUTROPHILS % (AUTO) 80.7 % (42.0-75.0); PLATELET COUNT 45 X10^3/uL (150.0-450.0); RED BLOOD COUNT 2.28 X10^6/uL (4.7-6.0); RED CELL DISTRIBUTION WIDTH 21.1 % (11.6-16.5); WHITE BLOOD COUNT 13.3 X10^3/uL (3.6-10.0)
[2018-04-23] MEDS: ZOSYN VIAL 2.25 GRAMS 2.25 G in NS 100 ML IV + SPIKE MINIBAG* 100 ML IV SCH ×3 (06:07→22:13)
[2018-04-23] MEDS: NS 1/2 1000 ML IV 1,000 ML IV SCH (06:07)
[2018-04-23 06:12] LABS: ALANINE AMINOTRANSFERASE 51 Units/L (12-78); ALBUMIN 2.6 g/dL (3.4-5.0); ALKALINE PHOSPHATASE 70 Units/L (46-116); ASPARTATE AMINO TRANSFERASE 122 Units/L (15-37); BLOOD UREA NITROGEN 34 mg/dL (7-18); CALCIUM 8.5 mg/dL (8.5-10.1); CARBON DIOXIDE 20.7 mmol/L (21-32); COR CA(FOR HYPOALB) 9.6 mg/dL (8.5-10.1); CREATININE 2.38 mg/dL (0.70-1.30); eGFR NON BLACK RACES 31 (>60)
[2018-04-23 06:15] LABS: CHLORIDE 132 mmol/L (98-107); SODIUM 164 mmol/L (136-145)
[2018-04-23 06:21] LABS: PLATELET MORPHOLOGY COMMENT NORMAL (NORMAL)
[2018-04-23 06:23] LABS: ANISOCYTOSIS 1+; CRENATED RBC NOTED; TARGET CELLS SLIGHT
[2018-04-23] MEDS: INDERAL TAB 10 MG PO SCH ×2 (08:41→22:12)
[2018-04-23] MEDS: XIFAXAN PO SCH ×2 (08:42→22:12)
[2018-04-23] MEDS: PROTONIX INJ 40 MG VIAL IVP SCH (08:42)
[2018-04-23] MEDS ORDERED: BUTT CREAM (COMPOUND) ONE (13:35)
[2018-04-23] MEDS ORDERED: POTASSIUM CHLORIDE LIQ 20 MEQ UDC PO SCH (16:00)
[2018-04-23] MEDS: D5W 1000 ML IV 1,000 ML IV SCH (16:02)
[2018-04-23] MEDS: MAGNESIUM SULFATE 1 GRAM/100 mL PREMIX 2 G/200 ML BAG IV SCH ×2 (16:02→17:00)
[2018-04-23] MEDS: POTASSIUM CHLORIDE LIQ 20 MEQ UDC PO SCH ×2 (16:11→22:23)
[2018-04-23] MEDS: LANTISEPTIC TOP PRN (17:42)
[2018-04-23] MEDS: TAB-A-VITE PO SCH (22:12)
[2018-04-23] MEDS: ULTRAM NG PRN (22:23)
[2018-04-24] MEDS: CHRONULAC PO SCH ×4 (02:54→21:40)
--- NOTE | 2018-04-24 03:32 | RAD ---
Abdomen single view Indication: NG tube placement Findings: NG tube projects over the left upper quadrant, presumably in the stomach, the tip is somewh at obscured. Gas stool are seen in the colon 1 mildly prominent loops of small bowel Impression: NG tube projects over the stomach. Mildly prominent loops of small bowel suggest enteriti s or developing obstruction Reported By:
[2018-04-24 05:55] LABS: BASOPHILS # (AUTO) 0.1 X10^3/uL (0.0-0.1); BASOPHILS % (AUTO) 0.6 % (0.2-1.0); EOSINOPHILS # (AUTO) 0.4 x10^3/uL (0.0-0.2); HEMATOCRIT 22.9 % (42.0-54.0); HEMOGLOBIN 8.1 g/dL (13.5-18.0); LYMPHOCYTES # (AUTO) 1.6 X10^3/uL (1.3-2.9); LYMPHOCYTES % (AUTO) 12.9 % (21.0-51.0); MEAN CORPUSCULAR HEMOGLOBIN 36.4 pg (27.0-34.0); MEAN CORPUSCULAR HGB CONC 35.4 g/dL (33.0-35.0); MEAN PLATELET VOLUME 8.8 fL (7.4-11.0); MONOCYTES # (AUTO) 0.8 x10^3/uL (0.3-0.8); MONOCYTES % (AUTO) 6.3 % (0.0-13.0); NEUTROPHILS # (AUTO) 9.3 x10^3/uL (2.2-4.8); NEUTROPHILS % (AUTO) 77.2 % (42.0-75.0); PLATELET COUNT 46 X10^3/uL (150.0-450.0); RED BLOOD COUNT 2.22 X10^6/uL (4.7-6.0); RED CELL DISTRIBUTION WIDTH 20.8 % (11.6-16.5)
[2018-04-24 06:08] LABS: ALBUMIN 2.3 g/dL (3.4-5.0); CALCIUM 8.5 mg/dL (8.5-10.1); CARBON DIOXIDE 21.2 mmol/L (21-32); COR CA(FOR HYPOALB) 9.9 mg/dL (8.5-10.1); CREATININE 2.56 mg/dL (0.70-1.30); TOTAL PROTEIN 6.9 g/dL (6.4-8.2)
[2018-04-24] MEDS: D5W 1000 ML IV 1,000 ML IV SCH ×3 (06:14→17:52)
[2018-04-24] MEDS: ZOSYN VIAL 2.25 GRAMS 2.25 G in NS 100 ML IV + SPIKE MINIBAG* 100 ML IV SCH ×3 (06:15→21:40)
[2018-04-24 06:33] LABS: WHITE BLOOD COUNT 15.1 X10^3/uL (3.6-10.0)
[2018-04-24 06:34] LABS: GIANT PLATELET NOTED; HYPOCHROMASIA SLIGHT; PLATELET MORPHOLOGY COMMENT ABNORMAL (NORMAL)
[2018-04-24 06:35] LABS: ANISOCYTOSIS 1+; CRENATED RBC 2+
[2018-04-24] MEDS: INDERAL TAB 10 MG PO SCH ×2 (09:30→21:40)
[2018-04-24] MEDS: PROTONIX INJ 40 MG VIAL IVP SCH (09:36)
[2018-04-24] MEDS: XIFAXAN PO SCH ×2 (09:36→21:40)
[2018-04-24] MEDS ORDERED: NS 1/2 1000 ML IV 500 ML IV ONE (16:50)
[2018-04-24] MEDS ORDERED: NS 1/2 1000 ML IV 1,000 ML IV ONE (17:09)
[2018-04-24] MEDS: TAB-A-VITE PO SCH (21:40)
[2018-04-25] MEDS: CHRONULAC PO SCH ×4 (03:18→21:21)
[2018-04-25] MEDS: ZOSYN VIAL 2.25 GRAMS 2.25 G in NS 100 ML IV + SPIKE MINIBAG* 100 ML IV SCH ×3 (05:38→21:22)
[2018-04-25] MEDS: D5W 1000 ML IV 1,000 ML IV SCH ×2 (06:09→21:22)
[2018-04-25 06:49] LABS: BASOPHILS # (AUTO) 0.1 X10^3/uL (0.0-0.1); BASOPHILS % (AUTO) 0.7 % (0.2-1.0); EOSINOPHILS # (AUTO) 0.5 x10^3/uL (0.0-0.2); EOSINOPHILS % (AUTO) 4.8 % (0.9-2.9); HEMATOCRIT 24.2 % (42.0-54.0); HEMOGLOBIN 8.5 g/dL (13.5-18.0); LYMPHOCYTES # (AUTO) 1.5 X10^3/uL (1.3-2.9); LYMPHOCYTES % (AUTO) 13.9 % (21.0-51.0); MEAN CORPUSCULAR HGB CONC 34.9 g/dL (33.0-35.0); MEAN CORPUSCULAR VOLUME 103.1 fL (80.0-100.0); MEAN PLATELET VOLUME 9.5 fL (7.4-11.0); MONOCYTES # (AUTO) 0.8 x10^3/uL (0.3-0.8); MONOCYTES % (AUTO) 7.2 % (0.0-13.0); NEUTROPHILS # (AUTO) 7.8 x10^3/uL (2.2-4.8); NEUTROPHILS % (AUTO) 73.4 % (42.0-75.0); PLATELET COUNT 48 X10^3/uL (150.0-450.0); RED BLOOD COUNT 2.35 X10^6/uL (4.7-6.0); RED CELL DISTRIBUTION WIDTH 20.5 % (11.6-16.5)
[2018-04-25 07:01] LABS: ALBUMIN 2.3 g/dL (3.4-5.0); CALCIUM 8.2 mg/dL (8.5-10.1); CARBON DIOXIDE 17.8 mmol/L (21-32); COR CA(FOR HYPOALB) 9.6 mg/dL (8.5-10.1); CREATININE 2.32 mg/dL (0.70-1.30); MAGNESIUM 1.9 mg/dL (1.7-2.9); TOTAL PROTEIN 7.2 g/dL (6.4-8.2)
[2018-04-25 07:05] LABS: WHITE BLOOD COUNT 12.1 X10^3/uL (3.6-10.0)
[2018-04-25 07:06] LABS: ANISOCYTOSIS 1+; CRENATED RBC 1+; GIANT PLATELET NOTED; HYPOCHROMASIA SLIGHT; PLATELET MORPHOLOGY COMMENT ABNORMAL (NORMAL)
[2018-04-25] MEDS: XIFAXAN PO SCH ×2 (08:31→21:22)
[2018-04-25] MEDS: PROTONIX INJ 40 MG VIAL IVP SCH (08:31)
[2018-04-25] MEDS: INDERAL TAB 10 MG PO SCH ×2 (09:23→21:22)
[2018-04-25] MEDS: BUTT CREAM (COMPOUND) TOP PRN ×7 (10:00→22:30)
[2018-04-25] MEDS: LANTISEPTIC TOP PRN ×8 (10:00→22:30)
[2018-04-25] MEDS: TAB-A-VITE PO SCH (21:22)
[2018-04-25] MEDS: ULTRAM NG PRN (21:32)
[2018-04-26] MEDS: BUTT CREAM (COMPOUND) TOP PRN ×6 (00:41→22:15)
[2018-04-26] MEDS: LANTISEPTIC TOP PRN ×6 (00:42→22:15)
[2018-04-26] MEDS: CHRONULAC PO SCH ×4 (01:36→21:29)
[2018-04-26] MEDS: ZOSYN VIAL 2.25 GRAMS 2.25 G in NS 100 ML IV + SPIKE MINIBAG* 100 ML IV SCH ×3 (05:58→21:30)
[2018-04-26] MEDS: D5W 1000 ML IV 1,000 ML IV SCH (05:58)
[2018-04-26 06:49] LABS: CALCIUM 7.7 mg/dL (8.5-10.1); COR CA(FOR HYPOALB) 9.3 mg/dL (8.5-10.1); CREATININE 2.07 mg/dL (0.70-1.30); TOTAL PROTEIN 6.6 g/dL (6.4-8.2)
[2018-04-26 06:51] LABS: BASOPHILS # (AUTO) 0.1 X10^3/uL (0.0-0.1); EOSINOPHILS # (AUTO) 0.3 x10^3/uL (0.0-0.2); EOSINOPHILS % (AUTO) 3.6 % (0.9-2.9); HEMATOCRIT 21.6 % (42.0-54.0); HEMOGLOBIN 7.7 g/dL (13.5-18.0); LYMPHOCYTES # (AUTO) 1.7 X10^3/uL (1.3-2.9); LYMPHOCYTES % (AUTO) 18.5 % (21.0-51.0); MEAN CORPUSCULAR HEMOGLOBIN 36.5 pg (27.0-34.0); MEAN CORPUSCULAR HGB CONC 35.5 g/dL (33.0-35.0); MEAN CORPUSCULAR VOLUME 102.9 fL (80.0-100.0); MEAN PLATELET VOLUME 11.1 fL (7.4-11.0); MONOCYTES # (AUTO) 0.6 x10^3/uL (0.3-0.8); NEUTROPHILS # (AUTO) 6.4 x10^3/uL (2.2-4.8); NEUTROPHILS % (AUTO) 69.9 % (42.0-75.0); PLATELET COUNT 45 X10^3/uL (150.0-450.0); RED CELL DISTRIBUTION WIDTH 20.4 % (11.6-16.5)
[2018-04-26 07:17] LABS: WHITE BLOOD COUNT 10.2 X10^3/uL (3.6-10.0)
[2018-04-26 07:19] LABS: ANISOCYTOSIS 1+; GIANT PLATELET NOTED; HYPOCHROMASIA SLIGHT; PLATELET MORPHOLOGY COMMENT NORMAL (NORMAL)
[2018-04-26 07:20] LABS: CRENATED RBC 2+
[2018-04-26] MEDS ORDERED: TYLENOL #3 TAB (W/CODEINE) PO PRN (08:18)
[2018-04-26] MEDS: K-DUR TAB 20 MEQ PO SCH (08:52)
[2018-04-26] MEDS: ALDACTONE TAB 25 MG PO SCH (08:52)
[2018-04-26] MEDS: PROTONIX INJ 40 MG VIAL IVP SCH (08:53)
[2018-04-26] MEDS: XIFAXAN PO SCH ×2 (08:53→21:30)
--- NOTE | 2018-04-26 08:58 | RAD ---
Exam: Portable chest History: 47-year-old male with cirrhosis and metabolic encephalopathy Comparison: Previous chest radiograph from 04/18/2018 Findings: Since the previous exam, the NG tube has been removed. Cardiomegaly with increasing pulmonary vascula r congestion is seen. In addition patchy airspace disease is seen bilaterally, particularly in the le ft upper lobe. These may reflect multifocal pneumonia. No significant effusion on either side. Impression: 1. Cardiomegaly with increasing pulmonary vascular congestion. 2. Patchy airspace disease is seen bilaterally, particularly in the left upper lobe, which may reflec t multifocal pneumonia Reported By:
[2018-04-26] MEDS: INDERAL TAB 10 MG PO SCH ×2 (09:11→21:29)
[2018-04-26] MEDS: TAB-A-VITE PO SCH (21:29)
[2018-04-27] MEDS: LANTISEPTIC TOP PRN ×5 (00:35→06:13)
[2018-04-27] MEDS: BUTT CREAM (COMPOUND) TOP PRN ×5 (00:35→06:13)
[2018-04-27] MEDS: CHRONULAC PO SCH ×3 (02:02→14:27)
[2018-04-27] MEDS: ZOSYN VIAL 2.25 GRAMS 2.25 G in NS 100 ML IV + SPIKE MINIBAG* 100 ML IV SCH (05:09)
[2018-04-27 06:49] LABS: BASOPHILS # (AUTO) 0.1 X10^3/uL (0.0-0.1); BASOPHILS % (AUTO) 0.9 % (0.2-1.0); EOSINOPHILS # (AUTO) 0.4 x10^3/uL (0.0-0.2); EOSINOPHILS % (AUTO) 3.2 % (0.9-2.9); HEMATOCRIT 23.6 % (42.0-54.0); HEMOGLOBIN 8.2 g/dL (13.5-18.0); LYMPHOCYTES # (AUTO) 1.7 X10^3/uL (1.3-2.9); LYMPHOCYTES % (AUTO) 13.3 % (21.0-51.0); MEAN CORPUSCULAR HEMOGLOBIN 36.2 pg (27.0-34.0); MEAN CORPUSCULAR HGB CONC 34.7 g/dL (33.0-35.0); MEAN CORPUSCULAR VOLUME 104.5 fL (80.0-100.0); MEAN PLATELET VOLUME 11.5 fL (7.4-11.0); MONOCYTES # (AUTO) 0.9 x10^3/uL (0.3-0.8); NEUTROPHILS # (AUTO) 9.4 x10^3/uL (2.2-4.8); NEUTROPHILS % (AUTO) 75.6 % (42.0-75.0); PLATELET COUNT 53 X10^3/uL (150.0-450.0); RED BLOOD COUNT 2.26 X10^6/uL (4.7-6.0); RED CELL DISTRIBUTION WIDTH 20.4 % (11.6-16.5)
[2018-04-27 07:00] LABS: WHITE BLOOD COUNT 13.6 X10^3/uL (3.6-10.0)
[2018-04-27 07:02] LABS: ANISOCYTOSIS 1+; CRENATED RBC 2+; GIANT PLATELET NOTED; HYPOCHROMASIA 1+; PLATELET MORPHOLOGY COMMENT ABNORMAL (NORMAL)
[2018-04-27 07:08] LABS: CARBON DIOXIDE 17.2 mmol/L (21-32); COR CA(FOR HYPOALB) 9.6 mg/dL (8.5-10.1); CREATININE 2.14 mg/dL (0.70-1.30); TOTAL PROTEIN 7.1 g/dL (6.4-8.2)
[2018-04-27] MEDS ORDERED: KLOR-CON PO ONE (07:25)
[2018-04-27] MEDS ORDERED: KLOR-CON PO PRN (08:25)
[2018-04-27] MEDS: ALDACTONE TAB 25 MG PO SCH (08:26)
[2018-04-27] MEDS: XIFAXAN PO SCH (08:27)
[2018-04-27] MEDS: PROTONIX INJ 40 MG VIAL IVP SCH (08:27)
[2018-04-27] MEDS: K-DUR TAB 20 MEQ PO SCH (08:27)
[2018-04-27] MEDS: INDERAL TAB 10 MG PO SCH (08:30)
[2018-04-27] MEDS ORDERED: LASIX PO SCH (09:00)
[2018-04-27] MEDS ORDERED: D5W 1000 ML IV 1,000 ML IV ONE (09:47)
[2018-04-27] MEDS: D5W 1000 ML IV 1,000 ML IV SCH (09:50)
[2018-04-27 13:11] VITALS: BP 99/57
--- NOTE | 2018-05-14 17:46 | PCM.PROG ---
Progress Note - Progress Note for Day of Date of Exam: 04/23/18 - Subjective Subjective: [address] MARQUEZ WITH LIVER FAILURE, ADMITTED WITH AMS DUE TO ELEVATED AMMONIA LEVELS. PT HAS BEEN UNDER THE CARE OF DR MORIN, AND PREVIOUSLY SEEN AT [place]. DISCUSSION WITH SPOUSE REGARDING TRANSFER TO [place], SPOUSE REFUSED TRANSFER TO [facility]ARE FACILITY. LIMITED DNR SIGNED BY SPOUSE. CONTINUING TO PROVIDE COMFORT MEASURES. - Past Medical Family Social History Past Med/Fam/Surg Hx: No changes since H&P Allergies: Allergies No Known Drug Allergies Allergy (Verified 08/18/17 09:03) - Review of Systems ROS: No change since H&P - Vital Signs and I&O's Vital Signs: Temperature 98.8 F Pulse Rate [Apical] 77 Pulse Rate 82 Respiratory Rate 21 Blood Pressure [Right Arm] 99/57 Blood Pressure [Left Arm] 109/59 Blood Pressure 119/82 O2 Sat by Pulse Oximetry 94 - Physical Exam Oriented: Not Oriented Eyes: Normal Ear: Normal Nose: Blood Throat: Dry (DRY MM, SMALL BLOOD CLOTS IN SECRETIONS IN ORAL CAVITY) Respiratory: Diminished, Rhonchi Cardiovascular: Normal : Normal Auscultation: Bowel Sounds: Normal Palpation: Normal Tenderness: Diffuse (mild) Skin: Decreased Turgur, Bruising, Other (JAUNDICE) Musculoskeletal: Normal - Laboratory and Diagnostics Result Diagrams: 04/27/18 05:41 04/27/18 05:41 Labs: 04/13/18 11:35 Blood Blood Culture - Final 04/13/18 11:30 Blood Blood Culture - Final Laboratory WBC 13.6 X10^3/uL (3.6-10.0) H 04/27/18 05:41 RBC 2.26 X10^6/uL (4.7-6.0) L 04/27/18 05:41 Hgb 8.2 g/dL (13.5-18.0) L 04/27/18 05:41 Hct 23.6 % (42.0-54.0) L 04/27/18 05:41 MCV 104.5 fL (80.0-100.0) H 04/27/18 05:41 MCH 36.2 pg (27.0-34.0) H 04/27/18 05:41 MCHC 34.7 g/dL (33.0-35.0) 04/27/18 05:41 RDW 20.4 % (11.6-16.5) H 04/27/18 05:41 Plt Count 53 X10^3/uL (150.0-450.0) L 04/27/18 05:41 Plt Count Comment Decreased (ADEQUATE) 04/27/18 05:41 MPV 11.5 fL (7.4-11.0) H 04/27/18 05:41 Neut % (Auto) 75.6 % (42.0-75.0) H 04/27/18 05:41 Lymph % (Auto) 13.3 % (21.0-51.0) L 04/27/18 05:41 [place] % (Auto) 7.0 % (0.0-13.0) 04/27/18 05:41 Eos % (Auto) 3.2 % (0.9-2.9) H 04/27/18 05:41 Baso % (Auto) 0.9 % (0.2-1.0) 04/27/18 05:41 Neut # (Auto) 9.4 x10^3/uL (2.2-4.8) H 04/27/18 05:41 Lymph # (Auto) 1.7 X10^3/uL (1.3-2.9) 04/27/18 05:41 [place] # (Auto) 0.9 x10^3/uL (0.3-0.8) H 04/27/18 05:41 Eos # (Auto) 0.4 x10^3/uL (0.0-0.2) H 04/27/18 05:41 Baso # (Auto) 0.1 X10^3/uL (0.0-0.1) 04/27/18 05:41 Absolute Nucleated RBC 1.3 /100WBC 04/27/18 05:41 Total Counted 100 04/20/18 05:13 Neutrophils % (Manual) 82 % (39-76) H 04/20/18 05:13 Band Neutrophils % 4 % (0-10) 04/20/18 05:13 Lymphocytes % (Manual) 10 % (13-43) L 04/20/18 05:13 Monocytes % (Manual) 2 % (4-9) L 04/20/18 05:13 Eosinophils % (Manual) 2 % (0-6) 04/20/18 05:13 Giant Platelets Noted 04/27/18 05:41 Plt Morphology Comment Abnormal (NORMAL) 04/27/18 05:41 RBC Morphology Abnormal (NORMAL) 04/27/18 05:41 Hypochromasia 1+ A 04/27/18 05:41 Anisocytosis 1+ A 04/27/18 05:41 Macrocytosis Slight A 04/27/18 05:41 Target Cells Slight A 04/23/18 05:31 Crenated Cell 2+ A 04/27/18 05:41 INR Target Range - 04/25/18 05:47 INR 3.62 (0.8-1.3) H 04/25/18 05:47 APTT 58.0 SECONDS (22.9-36.5) H 04/15/18 14:20 PTT Comment - 04/15/18 14:20 Sodium 143 mmol/L (136-145) 04/27/18 05:41 Corrected Sodium 144 mmol/L (136-145) 04/27/18 05:41 Potassium 3.0 mmol/L (3.5-5.1) L* 04/27/18 05:41 Chloride 114 mmol/L (98-107) H 04/27/18 05:41 Carbon Dioxide 17.2 mmol/L (21-32) L 04/27/18 05:41 BUN 28 mg/dL (7-18) H 04/27/18 05:41 Creatinine 2.14 mg/dL (0.70-1.30) H 04/27/18 05:41 Est GFR (MDRD) Af Amer 43 (>60) L 04/27/18 05:41 Est GFR (MDRD) Non-Af 35 (>60) L 04/27/18 05:41 Glucose 132 mg/dL (65-99) H 04/27/18 05:41 Lactic Acid 1.3 mmol/L (0.4-2.0) 04/15/18 05:05 Calcium 8.0 mg/dL (8.5-10.1) L 04/27/18 05:41 Corrected Calcium 9.6 mg/dL (8.5-10.1) 04/27/18 05:41 Magnesium 1.9 mg/dL (1.7-2.9) 04/25/18 05:47 Total Bilirubin 7.20 mg/dL (0.2-1.0) H 04/27/18 05:41 AST 117 Units/L (15-37) H 04/27/18 05:41 ALT 46 Units/L (12-78) 04/27/18 05:41 Alkaline Phosphatase 80 Units/L (46-116) 04/27/18 05:41 Ammonia 29 umol/L (11-32) 04/26/18 05:50 Total Protein 7.1 g/dL (6.4-8.2) 04/27/18 05:41 Albumin 2.0 g/dL (3.4-5.0) L 04/27/18 05:41 Globulin 5.1 g/dL (2.5-4.5) H 04/27/18 05:41 Albumin/Globulin Ratio 0.4 Ratio (1.1-2.1) L 04/27/18 05:41 Specimen Type Catherized urine 04/13/18 13:21 Urine Color Dark yellow (YELLOW) 04/13/18 13:21 Urine Appearance Hazy (CLEAR) 04/13/18 13:21 Urine pH 6.0 (5.0 - 8.0) 04/13/18 13:21 Ur Specific [place] 1.010 (1.000-1.030) 04/13/18 13:21 Urine Protein Negative (NEGATIVE) 04/13/18 13:21 Urine Glucose (UA) Negative (NEGATIVE) 04/13/18 13:21 Urine Ketones Negative (NEGATIVE) 04/13/18 13:21 Urine Occult Blood 1+ (NEGATIVE) 04/13/18 13:21 Urine Nitrite Negative (NEGATIVE) 04/13/18 13:21 Urine Bilirubin Negative (NEGATIVE) 04/13/18 13:21 Urine Urobilinogen Normal (NORMAL) 04/13/18 13:21 Ur Leukocyte Esterase 1+ (NEGATIVE) 04/13/18 13:21 Urine RBC 0-2 /HPF (NONE SEEN) 04/13/18 13:21 Urine WBC 0-2 /HPF (NONE SEEN) 04/13/18 13:21 Ur Squamous Epith Cells Negative /HPF (NEGATIVE) 04/13/18 13:21 Urine Bacteria Negative /HPF (NEGATIVE) 04/13/18 13:21 Ur Culture Indicated? No/not indicated 04/13/18 13:21 Blood Type O POSITIVE 04/19/18 08:25 Antibody Screen Negative 04/19/18 08:25 Crossmatch See Detail 04/19/18 08:25 - Plan (1) Acute renal failure Status: Acute Plan: monitor labs (2) Hepatic encephalopathy Status: Acute Plan: monitor ammonia (3) Hepatic steatosis Status: Acute (4) Hyperammonemia Status: Acute Plan: monitor ammonia (5) Liver failure Status: Acute Plan: CONTINUE CARDIAC MONITORING, NG TUBE. SUPPLEMENTAL O2, RESP CARE AND SUCTION STRICT I & OS. LACTULOSE QID, CONTINUE XIFAXIN. BP MONITORING, SUPPORTIVE CARE
== END 2018-04-27 15:38 | disposition swing bed (61) | DRG 441 ==
LOC: ER 10:33 → ICU 15:23 → MED/SURG 04-27 14:29
PROVIDERS: ADMIT Obstetrics & Gynecology Obstetrics; ATTEND Obstetrics & Gynecology Obstetrics
DX: R41.82 Altered mental status, unspecified; R94.4 Abnormal results of kidney function studies; Z66 Do not resuscitate; R13.12 Dysphagia, oropharyngeal phase; D69.1 Qualitative platelet defects; R79.89 Other specified abnormal findings of blood chemistry; N17.8 Other acute kidney failure; Z78.1 Physical restraint status; R26.89 Other abnormalities of gait and mobility; K72.00 Acute and subacute hepatic failure without coma; K21.9 Gastro-esophageal reflux disease without esophagitis; R53.1 Weakness; G93.41 Metabolic encephalopathy; E86.0 Dehydration; I12.9 Hypertensive chronic kidney disease with stage 1 through stage 4 chronic kidney disease, or unspecified chronic kidney disease; K76.0 Fatty (change of) liver, not elsewhere classified; N18.9 Chronic kidney disease, unspecified; R79.1 Abnormal coagulation profile; E87.0 Hyperosmolality and hypernatremia
CPT/HCPCS: 36415; 36430; 43753; 70450; 71010; 71045; 74000; 74018; 80053; 81001; 82140; 83605; 83735; 84132; 84295; 85014; 85018; 85025; 85610; 85730; 86850; 86900; 86901; 86922; 87040; 92526; 92610; 96365; 96374; 97167; 97535; 99231; 99283; 99284; A4222; C9113; P9016; P9047; J1940; J2060; J2270; J2543; J3430; J3475; J7030; J7040; J7050; J7060; J7120

== ENCOUNTER 2018-04-27 15:38 | Inpatient (IN) ==
[2018-04-27] MEDS ORDERED: KLOR-CON PO PRN (16:12)
[2018-04-27] MEDS: ZOFRAN INJ 4 MG VIAL IVP PRN (20:31)
[2018-04-27] MEDS: CHRONULAC PO SCH (21:09)
[2018-04-27] MEDS: INDERAL TAB 10 MG PO SCH (21:09)
[2018-04-27] MEDS: TAB-A-VITE PO SCH (21:09)
[2018-04-28] MEDS: ZOFRAN INJ 4 MG VIAL IVP PRN ×3 (02:54→18:16)
[2018-04-28] MEDS: CHRONULAC PO SCH ×4 (03:13→21:24)
[2018-04-28 06:53] LABS: ALANINE AMINOTRANSFERASE 47 Units/L (12-78); ALBUMIN 1.9 g/dL (3.4-5.0); ALKALINE PHOSPHATASE 83 Units/L (46-116); ASPARTATE AMINO TRANSFERASE 110 Units/L (15-37); BLOOD UREA NITROGEN 27 mg/dL (7-18); CALCIUM 7.8 mg/dL (8.5-10.1); CARBON DIOXIDE 16.5 mmol/L (21-32); CHLORIDE 110 mmol/L (98-107); COR CA(FOR HYPOALB) 9.5 mg/dL (8.5-10.1); CREATININE 2.14 mg/dL (0.70-1.30); SODIUM 138 mmol/L (136-145); TOTAL PROTEIN 6.9 g/dL (6.4-8.2); eGFR NON BLACK RACES 35 (>60)
[2018-04-28 06:59] LABS: BASOPHILS # (AUTO) 0.1 X10^3/uL (0.0-0.1); BASOPHILS % (AUTO) 0.8 % (0.2-1.0); EOSINOPHILS # (AUTO) 0.4 x10^3/uL (0.0-0.2); EOSINOPHILS % (AUTO) 2.6 % (0.9-2.9); HEMATOCRIT 22.1 % (42.0-54.0); HEMOGLOBIN 7.8 g/dL (13.5-18.0); LYMPHOCYTES # (AUTO) 1.5 X10^3/uL (1.3-2.9); LYMPHOCYTES % (AUTO) 9.6 % (21.0-51.0); MEAN CORPUSCULAR HEMOGLOBIN 37.3 pg (27.0-34.0); MEAN CORPUSCULAR HGB CONC 35.2 g/dL (33.0-35.0); MEAN PLATELET VOLUME 11.1 fL (7.4-11.0); MONOCYTES # (AUTO) 1.1 x10^3/uL (0.3-0.8); MONOCYTES % (AUTO) 7.1 % (0.0-13.0); NEUTROPHILS # (AUTO) 12.2 x10^3/uL (2.2-4.8); NEUTROPHILS % (AUTO) 79.9 % (42.0-75.0); PLATELET COUNT 58 X10^3/uL (150.0-450.0); RED BLOOD COUNT 2.09 X10^6/uL (4.7-6.0); RED CELL DISTRIBUTION WIDTH 24.5 % (11.6-16.5)
[2018-04-28 07:08] LABS: WHITE BLOOD COUNT 16.4 X10^3/uL (3.6-10.0)
[2018-04-28 07:11] LABS: ANISOCYTOSIS 3+; GIANT PLATELET NOTED; HYPOCHROMASIA 1+; PLATELET MORPHOLOGY COMMENT NORMAL (NORMAL)
[2018-04-28 07:12] LABS: CRENATED RBC 2+
[2018-04-28] MEDS: K-DUR TAB 20 MEQ PO SCH (09:00)
[2018-04-28] MEDS: ALDACTONE TAB 25 MG PO SCH (09:02)
[2018-04-28] MEDS: INDERAL TAB 10 MG PO SCH ×2 (09:03→21:26)
[2018-04-28] MEDS: LASIX PO SCH (09:03)
[2018-04-28 11:08] LABS: IRON 37 ug/dL (50-175)
[2018-04-28] MEDS: XIFAXAN PO SCH ×2 (13:52→21:25)
[2018-04-28] MEDS: LEVAQUIN TAB 500 MG PO SCH (13:53)
[2018-04-28] MEDS: TAB-A-VITE PO SCH (21:27)
[2018-04-29] MEDS: CHRONULAC PO SCH ×4 (02:23→20:53)
[2018-04-29 05:43] LABS: BASOPHILS % (AUTO) 0.3 % (0.2-1.0); EOSINOPHILS # (AUTO) 0.3 x10^3/uL (0.0-0.2); EOSINOPHILS % (AUTO) 2.4 % (0.9-2.9); HEMATOCRIT 20.8 % (42.0-54.0); HEMOGLOBIN 7.4 g/dL (13.5-18.0); LYMPHOCYTES # (AUTO) 1.3 X10^3/uL (1.3-2.9); LYMPHOCYTES % (AUTO) 10.9 % (21.0-51.0); MEAN CORPUSCULAR HEMOGLOBIN 37.4 pg (27.0-34.0); MEAN CORPUSCULAR HGB CONC 35.5 g/dL (33.0-35.0); MEAN CORPUSCULAR VOLUME 105.2 fL (80.0-100.0); MONOCYTES # (AUTO) 1.1 x10^3/uL (0.3-0.8); NEUTROPHILS # (AUTO) 9.3 x10^3/uL (2.2-4.8); NEUTROPHILS % (AUTO) 77.4 % (42.0-75.0); PLATELET COUNT 57 X10^3/uL (150.0-450.0); RED BLOOD COUNT 1.97 X10^6/uL (4.7-6.0); RED CELL DISTRIBUTION WIDTH 26.8 % (11.6-16.5)
[2018-04-29 05:54] LABS: ALANINE AMINOTRANSFERASE 42 Units/L (12-78); ALBUMIN 1.8 g/dL (3.4-5.0); ALKALINE PHOSPHATASE 76 Units/L (46-116); ASPARTATE AMINO TRANSFERASE 97 Units/L (15-37); BLOOD UREA NITROGEN 30 mg/dL (7-18); CALCIUM 7.8 mg/dL (8.5-10.1); CARBON DIOXIDE 18.9 mmol/L (21-32); CHLORIDE 108 mmol/L (98-107); COR CA(FOR HYPOALB) 9.6 mg/dL (8.5-10.1); CREATININE 2.21 mg/dL (0.70-1.30); TOTAL PROTEIN 6.5 g/dL (6.4-8.2); eGFR NON BLACK RACES 34 (>60)
[2018-04-29 06:02] LABS: SODIUM 137 mmol/L (136-145)
[2018-04-29 06:09] LABS: PLATELET MORPHOLOGY COMMENT NORMAL (NORMAL)
[2018-04-29 06:10] LABS: ANISOCYTOSIS 1+; BURR CELLS SLIGHT; HYPOCHROMASIA 1+
[2018-04-29 06:35] LABS: AMMONIA 31 umol/L (11-32)
[2018-04-29] MEDS: TYLENOL #3 TAB (W/CODEINE) PO PRN (07:05)
[2018-04-29] MEDS: ZOFRAN INJ 4 MG VIAL IVP PRN (08:06)
[2018-04-29] MEDS: XIFAXAN PO SCH ×2 (08:44→20:53)
[2018-04-29] MEDS: LASIX PO SCH (08:44)
[2018-04-29] MEDS: LEVAQUIN TAB 500 MG PO SCH (08:44)
[2018-04-29] MEDS: K-DUR TAB 20 MEQ PO SCH (08:44)
[2018-04-29] MEDS: ALDACTONE TAB 25 MG PO SCH (08:44)
[2018-04-29] MEDS: INDERAL TAB 10 MG PO SCH ×2 (08:45→20:53)
[2018-04-29] MEDS ORDERED: PriLOSEC PO ONE (13:38)
[2018-04-29] MEDS ORDERED: NS 250 ML IV 250 ML IV ONE ×2 (13:45→23:44)
[2018-04-29] MEDS: PriLOSEC PO SCH (13:48)
[2018-04-29] MEDS: MAGNESIUM SULFATE 1 GRAM/100 mL PREMIX 1 GM/100 ML BAG IV PRN ×4 (13:48→16:59)
[2018-04-29] MEDS ORDERED: NS 500 ML IV 500 ML IV ONE (17:19)
[2018-04-29] MEDS: TAB-A-VITE PO SCH (20:53)
[2018-04-30] MEDS: CHRONULAC PO SCH ×4 (02:08→20:25)
[2018-04-30] MEDS: TYLENOL #3 TAB (W/CODEINE) PO PRN ×2 (05:35→17:13)
[2018-04-30 06:09] LABS: BASOPHILS % (AUTO) 0.4 % (0.2-1.0); EOSINOPHILS # (AUTO) 0.3 x10^3/uL (0.0-0.2); EOSINOPHILS % (AUTO) 2.1 % (0.9-2.9); HEMATOCRIT 28.2 % (42.0-54.0); LYMPHOCYTES # (AUTO) 1.1 X10^3/uL (1.3-2.9); LYMPHOCYTES % (AUTO) 8.9 % (21.0-51.0); MEAN CORPUSCULAR HEMOGLOBIN 35.9 pg (27.0-34.0); MEAN CORPUSCULAR HGB CONC 35.6 g/dL (33.0-35.0); MEAN PLATELET VOLUME 10.5 fL (7.4-11.0); NEUTROPHILS # (AUTO) 10.3 x10^3/uL (2.2-4.8); NEUTROPHILS % (AUTO) 80.6 % (42.0-75.0); PLATELET COUNT 69 X10^3/uL (150.0-450.0); RED CELL DISTRIBUTION WIDTH 23.1 % (11.6-16.5); WHITE BLOOD COUNT 12.8 X10^3/uL (3.6-10.0)
[2018-04-30 06:31] LABS: ALBUMIN 1.9 g/dL (3.4-5.0); CALCIUM 7.8 mg/dL (8.5-10.1); CARBON DIOXIDE 15.7 mmol/L (21-32); COR CA(FOR HYPOALB) 9.5 mg/dL (8.5-10.1); CREATININE 2.05 mg/dL (0.70-1.30); MAGNESIUM 1.9 mg/dL (1.7-2.9); TOTAL PROTEIN 7.1 g/dL (6.4-8.2)
[2018-04-30 07:01] LABS: PLATELET MORPHOLOGY COMMENT NORMAL (NORMAL)
[2018-04-30 07:02] LABS: ANISOCYTOSIS 2+
[2018-04-30] MEDS: INDERAL TAB 10 MG PO SCH ×2 (08:30→23:32)
[2018-04-30] MEDS: LASIX PO SCH (08:30)
[2018-04-30] MEDS: ALDACTONE TAB 25 MG PO SCH (08:30)
[2018-04-30] MEDS: K-DUR TAB 20 MEQ PO SCH ×2 (08:30→20:26)
[2018-04-30] MEDS: XIFAXAN PO SCH ×2 (08:30→20:25)
[2018-04-30] MEDS: PriLOSEC PO SCH (08:30)
[2018-04-30] MEDS: LEVAQUIN TAB 500 MG PO SCH (08:30)
[2018-04-30] MEDS: TAB-A-VITE PO SCH (20:26)
[2018-05-01] MEDS: TYLENOL #3 TAB (W/CODEINE) PO PRN ×3 (00:56→22:01)
[2018-05-01] MEDS: CHRONULAC PO SCH ×4 (02:34→20:11)
[2018-05-01 05:23] LABS: AMMONIA 34 umol/L (11-32)
[2018-05-01 05:24] LABS: BLOOD UREA NITROGEN 22 mg/dL (7-18); CALCIUM 7.8 mg/dL (8.5-10.1); CHLORIDE 109 mmol/L (98-107); CREATININE 1.91 mg/dL (0.70-1.30); SODIUM 135 mmol/L (136-145); eGFR NON BLACK RACES 40 (>60)
[2018-05-01 05:46] LABS: CARBON DIOXIDE 13.8 mmol/L (21-32)
[2018-05-01] MEDS: INDERAL TAB 10 MG PO SCH ×2 (08:22→20:11)
[2018-05-01] MEDS: ALDACTONE TAB 25 MG PO SCH (08:22)
[2018-05-01] MEDS: XIFAXAN PO SCH ×2 (08:22→20:11)
[2018-05-01] MEDS: LASIX PO SCH (08:22)
[2018-05-01] MEDS: LEVAQUIN TAB 500 MG PO SCH (08:23)
[2018-05-01] MEDS: K-DUR TAB 20 MEQ PO SCH ×2 (08:23→20:11)
[2018-05-01] MEDS: PriLOSEC PO SCH (08:23)
[2018-05-01] MEDS: TAB-A-VITE PO SCH (20:11)
[2018-05-02] MEDS: CHRONULAC PO SCH ×4 (03:33→20:52)
[2018-05-02] MEDS: TYLENOL #3 TAB (W/CODEINE) PO PRN ×3 (03:34→18:22)
[2018-05-02] MEDS: INDERAL TAB 10 MG PO SCH (08:07)
[2018-05-02] MEDS: XIFAXAN PO SCH ×2 (09:01→20:53)
[2018-05-02] MEDS: LEVAQUIN TAB 500 MG PO SCH (09:02)
[2018-05-02] MEDS: LASIX PO SCH (09:02)
[2018-05-02] MEDS: ALDACTONE TAB 25 MG PO SCH (09:02)
[2018-05-02] MEDS: K-DUR TAB 20 MEQ PO SCH ×2 (09:02→20:53)
[2018-05-02] MEDS: PriLOSEC PO SCH (09:03)
[2018-05-02] MEDS: LANTISEPTIC TOP PRN (09:05)
[2018-05-02] MEDS: BUTT CREAM (COMPOUND) TOP PRN (09:05)
[2018-05-02] MEDS: TAB-A-VITE PO SCH (20:52)
[2018-05-03] MEDS: CHRONULAC PO SCH ×4 (02:45→21:00)
[2018-05-03] MEDS: INDERAL TAB 10 MG PO SCH ×3 (05:23→21:40)
[2018-05-03] MEDS: TYLENOL #3 TAB (W/CODEINE) PO PRN ×2 (05:55→21:48)
[2018-05-03] MEDS: PriLOSEC PO SCH (08:24)
[2018-05-03] MEDS: LEVAQUIN TAB 500 MG PO SCH (08:24)
[2018-05-03] MEDS: XIFAXAN PO SCH ×2 (08:24→21:41)
[2018-05-03] MEDS: LASIX PO SCH (08:24)
[2018-05-03] MEDS: ALDACTONE TAB 25 MG PO SCH (08:24)
[2018-05-03] MEDS: K-DUR TAB 20 MEQ PO SCH ×2 (08:24→21:41)
[2018-05-03] MEDS: TAB-A-VITE PO SCH (21:41)
[2018-05-04] MEDS: CHRONULAC PO SCH ×4 (02:52→21:04)
[2018-05-04] MEDS: ALDACTONE TAB 25 MG PO SCH (08:33)
[2018-05-04] MEDS: LEVAQUIN TAB 500 MG PO SCH (08:34)
[2018-05-04] MEDS: INDERAL TAB 10 MG PO SCH ×2 (08:34→21:06)
[2018-05-04] MEDS: K-DUR TAB 20 MEQ PO SCH ×2 (08:34→21:05)
[2018-05-04] MEDS: LASIX PO SCH (08:34)
[2018-05-04] MEDS: PriLOSEC PO SCH (08:34)
[2018-05-04] MEDS: TYLENOL #3 TAB (W/CODEINE) PO PRN ×3 (08:35→21:04)
[2018-05-04] MEDS: XIFAXAN PO SCH ×2 (08:35→21:05)
[2018-05-04] MEDS: TAB-A-VITE PO SCH (21:05)
[2018-05-05] MEDS: CHRONULAC PO SCH ×4 (02:02→21:45)
[2018-05-05] MEDS: TYLENOL #3 TAB (W/CODEINE) PO PRN ×2 (04:16→22:00)
[2018-05-05] MEDS: INDERAL TAB 10 MG PO SCH ×2 (08:47→21:45)
[2018-05-05] MEDS: ALDACTONE TAB 25 MG PO SCH (08:47)
[2018-05-05] MEDS: LASIX PO SCH (08:48)
[2018-05-05] MEDS: K-DUR TAB 20 MEQ PO SCH ×2 (08:48→21:45)
[2018-05-05] MEDS: LEVAQUIN TAB 500 MG PO SCH (08:48)
[2018-05-05] MEDS: XIFAXAN PO SCH ×2 (08:48→21:44)
[2018-05-05] MEDS: PriLOSEC PO SCH (08:48)
[2018-05-05] MEDS: TAB-A-VITE PO SCH (21:45)
[2018-05-06] MEDS: CHRONULAC PO SCH ×4 (01:46→20:28)
[2018-05-06 06:33] LABS: ALANINE AMINOTRANSFERASE 48 Units/L (12-78); ALBUMIN 1.7 g/dL (3.4-5.0); ALKALINE PHOSPHATASE 100 Units/L (46-116); ASPARTATE AMINO TRANSFERASE 127 Units/L (15-37); BLOOD UREA NITROGEN 12 mg/dL (7-18); CARBON DIOXIDE 18.5 mmol/L (21-32); CHLORIDE 107 mmol/L (98-107); COR CA(FOR HYPOALB) 9.8 mg/dL (8.5-10.1); SODIUM 134 mmol/L (136-145); TOTAL PROTEIN 7.2 g/dL (6.4-8.2); eGFR NON BLACK RACES 53 (>60)
[2018-05-06 06:35] LABS: AMMONIA 33 umol/L (11-32)
[2018-05-06 07:06] LABS: EOSINOPHILS # (AUTO) 0.3 x10^3/uL (0.0-0.2); HEMATOCRIT 24.8 % (42.0-54.0); HEMOGLOBIN 8.8 g/dL (13.5-18.0); LYMPHOCYTES # (AUTO) 1.4 X10^3/uL (1.3-2.9); LYMPHOCYTES % (AUTO) 28.3 % (21.0-51.0); MEAN CORPUSCULAR HEMOGLOBIN 36.3 pg (27.0-34.0); MEAN CORPUSCULAR HGB CONC 35.4 g/dL (33.0-35.0); MEAN CORPUSCULAR VOLUME 102.4 fL (80.0-100.0); MEAN PLATELET VOLUME 7.6 fL (7.4-11.0); MONOCYTES # (AUTO) 0.7 x10^3/uL (0.3-0.8); MONOCYTES % (AUTO) 13.1 % (0.0-13.0); NEUTROPHILS # (AUTO) 2.6 x10^3/uL (2.2-4.8); NEUTROPHILS % (AUTO) 51.6 % (42.0-75.0); PLATELET COUNT 82 X10^3/uL (150.0-450.0); RED BLOOD COUNT 2.42 X10^6/uL (4.7-6.0); RED CELL DISTRIBUTION WIDTH 22.8 % (11.6-16.5); WHITE BLOOD COUNT 5.1 X10^3/uL (3.6-10.0)
[2018-05-06 07:16] LABS: PLATELET MORPHOLOGY COMMENT NORMAL (NORMAL)
[2018-05-06 07:17] LABS: ANISOCYTOSIS 2+
[2018-05-06 07:23] LABS: BURR CELLS NOTED
[2018-05-06] MEDS: LEVAQUIN TAB 500 MG PO SCH (09:15)
[2018-05-06] MEDS: PriLOSEC PO SCH ×2 (09:15→09:17)
[2018-05-06] MEDS: K-DUR TAB 20 MEQ PO SCH ×2 (09:16→20:28)
[2018-05-06] MEDS: LASIX PO SCH (09:16)
[2018-05-06] MEDS: XIFAXAN PO SCH ×2 (09:17→20:28)
[2018-05-06] MEDS: ALDACTONE TAB 25 MG PO SCH (09:17)
[2018-05-06] MEDS: INDERAL TAB 10 MG PO SCH ×2 (09:17→20:32)
[2018-05-06] MEDS: TYLENOL #3 TAB (W/CODEINE) PO PRN (17:49)
[2018-05-06] MEDS: TAB-A-VITE PO SCH (20:28)
[2018-05-07] MEDS: CHRONULAC PO SCH ×4 (02:00→20:04)
[2018-05-07] MEDS: XIFAXAN PO SCH ×2 (08:28→20:03)
[2018-05-07] MEDS: PriLOSEC PO SCH (08:28)
[2018-05-07] MEDS: ALDACTONE TAB 25 MG PO SCH (08:29)
[2018-05-07] MEDS: K-DUR TAB 20 MEQ PO SCH ×2 (08:29→20:04)
[2018-05-07] MEDS: INDERAL TAB 10 MG PO SCH ×2 (08:29→20:05)
[2018-05-07] MEDS: LASIX PO SCH (08:29)
[2018-05-07] MEDS: LEVAQUIN TAB 500 MG PO SCH (08:29)
[2018-05-07] MEDS: ZOFRAN INJ 4 MG VIAL IVP PRN (08:55)
[2018-05-07] MEDS: TAB-A-VITE PO SCH (20:03)
[2018-05-07] MEDS: TYLENOL #3 TAB (W/CODEINE) PO PRN (20:04)
[2018-05-08] MEDS: CHRONULAC PO SCH ×4 (03:49→21:23)
[2018-05-08] MEDS: PriLOSEC PO SCH (09:41)
[2018-05-08] MEDS: ALDACTONE TAB 25 MG PO SCH (09:41)
[2018-05-08] MEDS: LEVAQUIN TAB 500 MG PO SCH (09:42)
[2018-05-08] MEDS: LASIX PO SCH (09:42)
[2018-05-08] MEDS: XIFAXAN PO SCH ×2 (09:42→21:23)
[2018-05-08] MEDS: K-DUR TAB 20 MEQ PO SCH ×2 (09:42→21:24)
[2018-05-08] MEDS: INDERAL TAB 10 MG PO SCH ×2 (09:42→21:24)
[2018-05-08] MEDS: ZOFRAN INJ 4 MG VIAL IVP PRN ×2 (11:24→21:23)
[2018-05-08] MEDS: BUTT CREAM (COMPOUND) TOP PRN (18:29)
[2018-05-08] MEDS: TYLENOL #3 TAB (W/CODEINE) PO PRN (21:20)
[2018-05-08] MEDS: TAB-A-VITE PO SCH (21:25)
[2018-05-09] MEDS: CHRONULAC PO SCH ×4 (02:05→21:00)
[2018-05-09] MEDS: PriLOSEC PO SCH (09:55)
[2018-05-09] MEDS: K-DUR TAB 20 MEQ PO SCH ×2 (09:56→20:58)
[2018-05-09] MEDS: XIFAXAN PO SCH ×2 (09:56→21:00)
[2018-05-09] MEDS: LASIX PO SCH (09:56)
[2018-05-09] MEDS: ALDACTONE TAB 25 MG PO SCH (09:56)
[2018-05-09] MEDS: INDERAL TAB 10 MG PO SCH ×2 (09:57→20:59)
[2018-05-09] MEDS: LEVAQUIN TAB 500 MG PO SCH (09:57)
[2018-05-09] MEDS: ZOFRAN INJ 4 MG VIAL IVP PRN ×2 (10:01→18:27)
[2018-05-09] MEDS: TAB-A-VITE PO SCH (20:58)
[2018-05-09] MEDS: TYLENOL #3 TAB (W/CODEINE) PO PRN (20:59)
[2018-05-10] MEDS: CHRONULAC PO SCH ×4 (02:01→20:57)
[2018-05-10] MEDS: ZOFRAN INJ 4 MG VIAL IVP PRN ×2 (08:51→21:15)
[2018-05-10] MEDS: LEVAQUIN TAB 500 MG PO SCH (08:56)
[2018-05-10] MEDS: PriLOSEC PO SCH (08:57)
[2018-05-10] MEDS: LASIX PO SCH (08:57)
[2018-05-10] MEDS: ALDACTONE TAB 25 MG PO SCH (08:57)
[2018-05-10] MEDS: K-DUR TAB 20 MEQ PO SCH ×2 (08:58→20:57)
[2018-05-10] MEDS: XIFAXAN PO SCH ×2 (08:58→20:58)
[2018-05-10] MEDS: INDERAL TAB 10 MG PO SCH ×2 (08:58→20:57)
[2018-05-10] MEDS ORDERED: PREPARATION H OINT RECTAL PRN (10:59)
[2018-05-10] MEDS: BUTT CREAM (COMPOUND) TOP PRN (12:23)
[2018-05-10] MEDS: LANTISEPTIC TOP PRN (12:24)
[2018-05-10] MEDS: TYLENOL #3 TAB (W/CODEINE) PO PRN ×2 (14:33→22:16)
[2018-05-10] MEDS: TAB-A-VITE PO SCH (20:57)
[2018-05-11] MEDS: CHRONULAC PO SCH ×3 (02:44→14:41)
[2018-05-11] MEDS: PriLOSEC PO SCH (08:15)
[2018-05-11] MEDS: XIFAXAN PO SCH (08:15)
[2018-05-11] MEDS: LEVAQUIN TAB 500 MG PO SCH (08:16)
[2018-05-11] MEDS: ALDACTONE TAB 25 MG PO SCH (08:17)
[2018-05-11] MEDS: LASIX PO SCH (08:17)
[2018-05-11] MEDS: INDERAL TAB 10 MG PO SCH (08:17)
[2018-05-11] MEDS: K-DUR TAB 20 MEQ PO SCH (08:17)
[2018-05-11] MEDS: ZOFRAN INJ 4 MG VIAL IVP PRN (09:00)
[2018-05-11 09:38] VITALS: BP 89/50
[2018-05-11] MEDS: TYLENOL #3 TAB (W/CODEINE) PO PRN (13:10)
== END 2018-05-11 14:42 | disposition home or self-care (01) | DRG 949 ==
LOC: MED/SURG 15:38
PROVIDERS: ADMIT Obstetrics & Gynecology Obstetrics; ATTEND Obstetrics & Gynecology Obstetrics
DX: K76.0 Fatty (change of) liver, not elsewhere classified; N17.8 Other acute kidney failure; D69.1 Qualitative platelet defects; E87.0 Hyperosmolality and hypernatremia; G93.41 Metabolic encephalopathy; R53.1 Weakness; R41.82 Altered mental status, unspecified; R13.12 Dysphagia, oropharyngeal phase; Z51.89 Encounter for other specified aftercare; K72.00 Acute and subacute hepatic failure without coma; R26.89 Other abnormalities of gait and mobility; K21.9 Gastro-esophageal reflux disease without esophagitis; N18.9 Chronic kidney disease, unspecified; E86.0 Dehydration; I12.9 Hypertensive chronic kidney disease with stage 1 through stage 4 chronic kidney disease, or unspecified chronic kidney disease
CPT/HCPCS: 36415; 36430; 80048; 80053; 82140; 82607; 82728; 82746; 83540; 83735; 84425; 84466; 85025; 86850; 86900; 86901; 86922; 92526; 94760; 97110; 97112; 97116; 97163; 97167; 97530; 97535; A4222; P9016; J2405; J3475; J7040; J7050

== ENCOUNTER 2018-06-03 16:57 | Inpatient (IN) ==
[2018-06-03] MEDS ORDERED: D50W ABBOJECT SYR ONE ×2 (17:05→18:14)
[2018-06-03] MEDS ORDERED: D50W ABBOJECT SYR IV ONE ×2 (17:05→18:14)
[2018-06-03] MEDS ORDERED: NS 1000 ML 1,000 ML ONE ×3 (17:23→21:19)
[2018-06-03] MEDS ORDERED: DOPAMINE IV PREMIX 400 MG/250 ML 400 MG/250 ML BAG IV ONE ×2 (17:25→17:31)
[2018-06-03] MEDS ORDERED: NS 1000 ML 1,000 ML IV ONE ×3 (17:31→20:34)
[2018-06-03 17:36] LABS: BILIRUBIN,URINE NEGATIVE (NEGATIVE); BLOOD/HEMOGLOBIN,URINE 1+ (NEGATIVE); GLUCOSE, URINE NEGATIVE (NEGATIVE); KETONES,URINE 1+ (NEGATIVE); LEUKOCYTE ESTERASE ,URINE 1+ (NEGATIVE); NITRITES,URINE POSITIVE (NEGATIVE); PROTEIN,URINE 1+ (NEGATIVE); UROBILINOGEN,URINE NORMAL (NORMAL)
[2018-06-03 17:51] LABS: APPEARANCE,URINE CLEAR (CLEAR); COLOR,URINE AMBER (YELLOW)
[2018-06-03 17:54] LABS: EOSINOPHILS # (AUTO) 0.4 x10^3/uL (0.0-0.2)
[2018-06-03 17:57] LABS: ALANINE AMINOTRANSFERASE 75 Units/L (12-78); ALBUMIN 1.5 g/dL (3.4-5.0); ALKALINE PHOSPHATASE 106 Units/L (46-116); ASPARTATE AMINO TRANSFERASE 415 Units/L (15-37); BLOOD UREA NITROGEN 23 mg/dL (7-18); CALCIUM 8.6 mg/dL (8.5-10.1); CHLORIDE 96 mmol/L (98-107); COR CA(FOR HYPOALB) 10.6 mg/dL (8.5-10.1); CREATININE 4.62 mg/dL (0.70-1.30); SODIUM 130 mmol/L (136-145); TOTAL PROTEIN 6.5 g/dL (6.4-8.2); eGFR NON BLACK RACES 14 (>60)
[2018-06-03 18:10] LABS: CARBON DIOXIDE 9.9 mmol/L (21-32)
[2018-06-03 18:13] LABS: RBC,URINE 0-2 /HPF (NONE SEEN)
[2018-06-03 18:14] LABS: AMORPHOUS SEDIMENT,UR 1+ /HPF (NEGATIVE); BACTERIA,URINE NEGATIVE /HPF (NEGATIVE); HYALINE CASTS, URINE FEW /LPF (NEGATIVE); SQUAMOUS EPITHELIAL CELL,UR RARE /HPF (NEGATIVE)
[2018-06-03 18:15] LABS: MUCUS,URINE MODERATE /HPF (NEGATIVE)
[2018-06-03 19:01] LABS: AMMONIA 34 umol/L (11-32)
[2018-06-03 19:10] LABS: BASOPHILS # (AUTO) 0.1 X10^3/uL (0.0-0.1); BASOPHILS % (AUTO) 0.2 % (0.2-1.0); EOSINOPHILS % (AUTO) 1.4 % (0.9-2.9); HEMATOCRIT 25.4 % (42.0-54.0); LYMPHOCYTES # (AUTO) 1.8 X10^3/uL (1.3-2.9); LYMPHOCYTES % (AUTO) 6.4 % (21.0-51.0); MEAN CORPUSCULAR HEMOGLOBIN 35.2 pg (27.0-34.0); MEAN CORPUSCULAR HGB CONC 31.4 g/dL (33.0-35.0); MEAN CORPUSCULAR VOLUME 112.2 fL (80.0-100.0); MEAN PLATELET VOLUME 8.8 fL (7.4-11.0); MONOCYTES # (AUTO) 0.9 x10^3/uL (0.3-0.8); MONOCYTES % (AUTO) 3.2 % (0.0-13.0); NEUTROPHILS # (AUTO) 25.3 x10^3/uL (2.2-4.8); NEUTROPHILS % (AUTO) 88.8 % (42.0-75.0); PLATELET COUNT 104 X10^3/uL (150.0-450.0); RED BLOOD COUNT 2.26 X10^6/uL (4.7-6.0); RED CELL DISTRIBUTION WIDTH 20.8 % (11.6-16.5)
--- NOTE | 2018-06-03 19:21 | DR.AMS ---
HPI Time Seen Time Seen by Provider: 06/03/18 19:15 PCP Primary Care Physician: Dr Monsalve HPI Comment HPI Comment: WHEN EMS ARRIVE AT [facility] HOME, GLUCOSE WAS 22 AND LOW BP. D50 GIVEN. STILL DIFFICULT TO AROUSE IN ED. GLUCOSE STILL LOW. D50 GIVEN AND PATIENT MORE RESPONSIVE. Complaint Cheif Complaint Doctors Comments: INCREASING AMS TIMES 2 DAYS. WAS WORSE TODAY, BARELY RESPONDING TO RELATIVES. Chief Complaint:: Per EMS pt has had altered mental status x 2 days. Upon arr ival EMS found blood glucose of 22 and administered glucagon. Blood pressure per EMS was 60/40 with HR 110. Self Treatment fo Chief Complaint: EMS attempted mulitple IV unsuccessfully and established IO line in right leg. Upon arrival to ER blood glucose read as LOW. d Reviewed Nurses Notes Reviewed: Yes Source History Provided: EMS Mode of Arrival Mode of Arrival: EMS Timing Onset of Chief Complaint: 06/03/18 Came On: Suddenly Symptoms: Worsening Duration Duration: Constant Duration: Days Quality Quality: Change in Behavior, Confusion and Not Eating Severity Severity: Severe and Unresponsive Context Recent: None History Of: Hypoglycemia Associated Signs and Symptoms Associated Signs and Symptoms: Generalized Weakness, Change in Behavior, Confusion, Decreased LOC, Decreased Oral Intake and Unresponsiveness PMH PMH Past Medical History: Yes Past Medical History: Arthritis, Asthma, Dyslipidemia, GERD, Kidney Stones, Liver Disease, PUD and Renal Disease Past Medical History Comment: hepatic, enchephalopathy Past Surgical History: No Surgical History: Other Family History History of Family Medical Conditions: Yes Family Medical History: Diabetes Mellitus and Hypertension Social History Does patient currently use any type of tobacco product: No Have you used tobacco products in the last 12 months: No Type of Tobacco Use: None Does any household member use tobacco: No Alcohol Use: None Do you use any recreational Drugs:: No Lives With: Spouse Lives Where: Home infectious screening In the last 2 months have you had wt loss of >10#?: NO Have you had fever, night sweats or hemotysis?: No Have you traveled outside the country in the last 6 months?: No Isolation: Standard ROS Review of Systems Constitutional: Malaise, Weakness, Fatigue and Loss of Appetite; negative Chills and Fever Eyes: Other (JAUNDICE.); negative Eye Pain and Discharge ENTM: No Symptoms Reported; negative Epistaxis Respiratoy: Non-Productive Cough and Short of Breath Cardiovascular: Syncope Gastrointestinal/Abdominal: Abdominal Pain, Nausea, Vomiting and Other (GI BLEEDING) Genitourinary: Other (DECREASE URINE OUTPUT.) Neurological: Weakness and Dizziness Musculoskeletal: Back Pain, Muscle Pain and Back Integumentary: Dryness and Juandice Hematologic/Lymphatic: Easy Bleeding and Easy Bruising Endocrine: Decreased Appetite Psychiatric: No Symptoms Reported All Other Systems: Reviewed and Negative PE Vitals Vital Signs: Temp Pulse Pulse Resp BP BP BP 06/06/18 21:21 102 H 40 H 92/55 06/06/18 20:48 102 H 38 H 55/34 06/06/18 20:30 109 H 45 H 57/40 06/06/18 20:00 114 H 44 H 64/41 06/06/18 19:00 114 H 45 H 121/51 06/06/18 18:01 119 H 44 H 103/45 06/06/18 18:00 120 H 45 H 06/06/18 17:30 122 H 44 H 78/52 06/06/18 17:00 123 H 44 H 81/50 06/06/18 16:30 122 H 44 H 80/54 06/06/18 16:00 124 H 43 H 83/51 06/06/18 15:30 124 H 43 H 86/58 06/06/18 15:00 125 H 46 H 91/50 06/06/18 14:30 126 H 43 H 90/57 06/06/18 14:00 125 H 45 H 89/62 06/06/18 13:30 125 H 46 H 90/55 06/06/18 13:00 125 H 45 H 92/61 06/06/18 12:30 125 H 43 H 90/61 06/06/18 12:00 125 H 47 H 86/57 06/06/18 11:30 125 H 46 H 84/56 06/06/18 11:00 127 H 43 H 77/32 06/06/18 10:00 127 H 42 H 87/60 06/06/18 09:00 127 H 44 H 91/53 06/06/18 08:00 128 H 43 H 88/52 06/06/18 07:00 98.0 F 127 H 44 H 89/53 06/06/18 06:00 129 H 45 H 90/59 06/06/18 05:00 129 H 42 H 97/53 06/06/18 04:00 129 H 44 H 97/55 06/06/18 03:00 130 H 44 H 97/65 06/06/18 02:00 130 H 43 H 97/55 06/06/18 01:00 132 H 45 H 100/62 06/06/18 00:00 130 H 41 H 102/57 06/05/18 23:00 130 H 38 H 99/61 06/05/18 22:00 129 H 42 H 96/63 06/05/18 21:00 130 H 32 H 97/63 06/05/18 20:00 98.2 F 130 H 32 H 96/63 06/05/18 19:00 98.2 F 129 H 32 H 97/62 06/05/18 18:00 127 H 30 H 97/58 06/05/18 17:00 125 H 30 H 94/63 06/05/18 16:00 98.3 F 124 H 28 H 90/55 06/05/18 15:00 122 H 26 H 97/67 06/05/18 14:00 121 H 26 H 90/56 06/05/18 13:36 122 H 23 96/59 06/05/18 13:30 126 H 26 H 06/05/18 13:15 122 H 31 H 06/05/18 13:00 121 H 27 H 98/68 06/05/18 12:45 121 H 27 H 06/05/18 12:30 120 H 40 H 97/63 06/05/18 12:15 120 H 26 H 06/05/18 12:00 119 H 26 H 100/57 06/05/18 11:45 119 H 28 H 06/05/18 11:30 116 H 28 H 102/51 06/05/18 11:15 119 H 27 H 06/05/18 11:00 117 H 54 H 102/68 06/05/18 10:45 118 H 48 H 06/05/18 10:30 117 H 35 H 107/55 06/05/18 10:15 117 H 26 H 06/05/18 10:00 116 H 26 H 106/58 06/05/18 09:45 117 H 26 H 06/05/18 09:30 115 H 26 H 111/55 06/05/18 09:15 115 H 26 H 10/01/18 09:00 115 H 27 H 103/52 06/05/18 08:45 113 H 27 H 06/05/18 08:30 113 H 26 H 100/55 06/05/18 08:15 113 H 26 H 06/05/18 08:00 98.2 F 115 H 36 H 99/59 06/05/18 07:45 114 H 31 H 06/05/18 07:30 115 H 37 H 104/70 06/05/18 07:15 114 H 34 H 06/05/18 07:00 98.2 F 115 H 47 H 101/57 06/05/18 06:45 111 H 30 H 06/05/18 06:30 112 H 32 H 95/57 06/05/18 06:02 109 H 29 H 94/53 06/05/18 06:00 112 H 23 06/05/18 05:00 97.3 F L 111 H 22 90/66 06/05/18 04:30 108 H 24 92/62 06/05/18 04:00 104 H 27 H 97/53 06/05/18 03:00 106 H 27 H 85/54 06/05/18 02:30 104 H 26 H 88/51 06/05/18 02:00 105 H 26 H 88/49 06/05/18 01:00 108 H 20 06/05/18 00:50 107 H 28 H 87/53 06/05/18 00:45 104 H 18 96/54 06/05/18 00:30 103 H 19 88/59 06/05/18 00:15 108 H 19 93/65 06/05/18 00:01 108 H 29 H 95/72 06/05/18 00:00 109 H 20 18 23:46 102 H 25 H 101/56 06/04/18 23:30 101 H 26 H 97/54 06/04/18 23:15 102 H 26 H 93/51 06/04/18 23:00 103 H 17 97/53 06/04/18 22:45 98.2 F 102 H 26 H 92/55 06/04/18 22:38 108 H 19 97/56 06/04/18 22:30 108 H 18 86/54 06/04/18 22:26 103 H 25 H 88/44 06/04/18 22:17 104 H 25 H 102/56 06/04/18 22:10 101 H 21 80/55 06/04/18 22:00 100 H 23 94/48 06/04/18 21:30 101 H 24 87/52 06/04/18 21:22 99 H 23 86/52 06/04/18 21:00 97 H 22 99/54 06/04/18 20:30 100 H 31 H 91/43 06/04/18 20:23 99 H 27 H 84/52 06/04/18 20:15 102 H 36 H 85/54 06/04/18 20:01 102 H 30 H 94/51 06/04/18 20:00 97 H 28 H 84/52 06/04/18 19:45 100 H 22 94/47 06/04/18 19:30 100 H 30 H 94/53 06/04/18 19:15 97 H 21 102/54 06/04/18 19:00 97 H 32 H 104/54 06/04/18 18:00 96 H 28 H 97/55 06/04/18 17:15 94 H 28 H 93/51 06/04/18 17:00 96 H 24 86/54 06/04/18 16:45 96 H 26 H 82/53 06/04/18 16:41 100 H 97 H 79/49 06/04/18 16:30 98 H 26 H 76/48 06/04/18 16:21 97 H 22 89/54 06/04/18 16:15 100 H 26 H 79/49 06/04/18 16:00 99 H 24 82/49 06/04/18 15:00 96 H 20 86/52 06/04/18 14:00 95 H 20 87/52 06/04/18 13:00 96 H 24 95/52 06/04/18 12:00 97.5 F L 92 H 20 90/53 06/04/18 11:00 94 H 24 88/52 06/04/18 10:00 92 H 24 89/53 06/04/18 09:00 97 H 24 88/45 06/04/18 08:00 96.7 F L 97 H 25 H 90/48 06/04/18 07:00 98 H 29 H 84/49 06/04/18 06:00 99 H 30 H 100/50 06/04/18 05:45 99 H 27 H 09/30/18 05:40 98 H 30 H 91/45 18 05:35 98 H 27 H 95/49 06/04/18 05:30 96 H 23 83/45 18 05:25 96 H 26 H 83/45 18 05:20 99 H 24 90/45 06/04/18 05:16 97 H 22 88/47 06/04/18 05:15 97 H 24 06/04/18 05:10 97 H 26 H 81/42 06/04/18 05:05 97 H 25 H 91/42 06/04/18 05:00 97 H 22 91/45 06/04/18 04:56 97 H 23 92/49 06/04/18 04:45 96 H 23 06/04/18 04:30 94 H 24 99/52 06/04/18 04:15 96.3 F L 94 H 23 06/04/18 04:00 92/47 06/04/18 03:45 93 H 20 06/04/18 03:30 94 H 24 93/48 06/04/18 03:15 140 H 24 06/04/18 03:03 98 H 24 92/55 06/04/18 03:00 96.3 F L 92 H 26 H 87/60 06/04/18 02:45 90 27 H 06/04/18 02:30 93 H 28 H 86/54 06/04/18 02:15 92 H 23 85/47 06/04/18 02:00 92 H 22 87/43 06/04/18 01:47 93 H 28 H 93/50 06/04/18 01:45 92 H 22 06/04/18 01:30 92 H 24 06/04/18 01:15 91 H 23 06/04/18 01:00 90 23 84/51 06/04/18 00:45 87 22 06/04/18 00:30 96.2 F L 116 H 28 H 06/04/18 00:15 89 24 06/04/18 00:03 94 H 24 06/04/18 00:00 96.2 F L 86/47 06/03/18 23:26 92 H 06/03/18 23:20 92 H 92 H 24 96/57 96/57 06/03/18 23:15 90 26 H 06/03/18 23:10 93 H 92 H 26 H 94/54 94/54 06/03/18 23:00 92 H 92 H 19 94/54 94/54 06/03/18 22:50 93 H 93 H 26 H 94/52 94/52 06/03/18 22:45 92 H 22 06/03/18 22:40 92 H 92 H 21 91/55 91/55 06/03/18 22:30 96 H 96 H 24 88/52 88/52 06/03/18 22:20 96 H 96 H 25 H 93/50 93/50 06/03/18 22:15 96 H 24 06/03/18 22:10 96 H 96 H 23 90/53 90/53 06/03/18 22:00 95 H 95 H 24 92/51 92/51 06/03/18 21:50 96 H 96 H 27 H 89/54 89/54 06/03/18 21:45 96 H 22 06/03/18 21:40 96 H 96 H 25 H 95/51 95/51 06/03/18 21:30 96 H 96 H 24 93/47 93/47 06/03/18 21:20 96 H 96 H 27 H 101/49 101/49 06/03/18 21:15 93 H 23 06/03/18 21:10 95 H 95 H 21 107/55 107/55 06/03/18 21:05 96 H 96 H 24 105/53 105/53 06/03/18 21:04 95 H 06/03/18 20:50 93 H 93 H 24 110/52 110/52 06/03/18 20:45 93 H 25 H 06/03/18 20:41 93 H 93 H 24 97/51 97/51 06/03/18 20:30 93 H 95 H 23 92/50 92/80 06/03/18 20:20 94 H 93 H 24 87/51 87/51 06/03/18 20:15 92 H 23 06/03/18 19:50 92 H 98/55 06/03/18 19:40 93 H 24 93/55 06/03/18 19:30 92 H 26 H 97/50 06/03/18 19:20 94 H 26 H 98/55 06/03/18 19:10 95 H 24 98/51 09/29/18 19:00 96 H 24 93/50 06/03/18 18:50 96 H 24 93/49 06/03/18 18:40 96 H 25 H 91/49 06/03/18 18:30 97 H 22 91/45 06/03/18 18:20 98 H 22 88/43 06/03/18 18:09 100 H 28 H 87/44 06/03/18 17:50 104 H 28 H 84/41 06/03/18 17:44 101 H 34 H 81/42 06/03/18 17:30 98 H 32 H 62/32 06/03/18 17:25 101 H 32 H 63/32 06/03/18 17:22 103 H 30 H 66/36 06/03/18 17:18 98.2 F 104 H 24 60/39 06/03/18 17:00 104 H 30 H 129/101 05/11/18 07:00 89/50 89/50 04/27/18 12:00 99/57 Pulse Ox 06/06/18 21:21 79 L 06/06/18 20:48 78 L 06/06/18 20:30 79 L 06/06/18 20:00 80 L 06/06/18 19:00 80 L 06/06/18 18:01 82 L 06/06/18 18:00 83 L 06/06/18 17:30 85 L 06/06/18 17:00 85 L 06/06/18 16:30 85 L 06/06/18 16:00 87 L 06/06/18 15:30 82 L 06/06/18 15:00 85 L 06/06/18 14:30 86 L 06/06/18 14:00 85 L 06/06/18 13:30 86 L 06/06/18 13:00 86 L 06/06/18 12:30 85 L 06/06/18 12:00 86 L 06/06/18 11:30 87 L 06/06/18 11:00 86 L 06/06/18 10:00 85 L 06/06/18 09:00 86 L 06/06/18 08:00 86 L 06/06/18 07:00 87 L 06/06/18 06:00 87 L 06/06/18 05:00 89 L 06/06/18 04:00 89 L 06/06/18 03:00 89 L 06/06/18 02:00 91 L 06/06/18 01:00 91 L 06/06/18 00:00 91 L 06/05/18 23:00 92 L 06/05/18 22:00 93 L 06/05/18 21:00 95 06/05/18 20:00 94 L 06/05/18 19:00 95 06/05/18 18:00 96 06/05/18 17:00 95 06/05/18 16:00 96 06/05/18 15:00 98 06/05/18 14:00 96 06/05/18 13:36 94 L 06/05/18 13:30 96 06/05/18 13:15 96 06/05/18 13:00 97 06/05/18 12:45 94 L 06/05/18 12:30 95 06/05/18 12:15 95 06/05/18 12:00 94 L 06/05/18 11:45 94 L 06/05/18 11:30 94 L 06/05/18 11:15 95 06/05/18 11:00 94 L 06/05/18 10:45 93 L 06/05/18 10:30 95 06/05/18 10:15 95 06/05/18 10:00 95 06/05/18 09:45 95 06/05/18 09:30 96 06/05/18 09:15 95 06/05/18 09:00 95 06/05/18 08:45 95 06/05/18 08:30 95 06/05/18 08:15 94 L 06/05/18 08:00 95 06/05/18 07:45 97 06/05/18 07:30 96 06/05/18 07:15 97 06/05/18 07:00 98 06/05/18 06:45 97 06/05/18 06:30 98 06/05/18 06:02 97 06/05/18 06:00 96 06/05/18 05:00 96 06/05/18 04:30 96 06/05/18 04:00 96 06/05/18 03:00 98 06/05/18 02:30 97 06/05/18 02:00 97 06/05/18 01:00 96 06/05/18 00:50 96 06/05/18 00:45 97 06/05/18 00:30 96 06/05/18 00:15 97 06/05/18 00:01 97 06/05/18 00:00 97 06/04/18 23:46 97 06/04/18 23:30 99 06/04/18 23:15 98 06/04/18 23:00 97 06/04/18 22:45 97 06/04/18 22:38 97 06/04/18 22:30 97 06/04/18 22:26 98 06/04/18 22:17 99 06/04/18 22:10 96 06/04/18 22:00 97 06/04/18 21:30 98 06/04/18 21:22 97 06/04/18 21:00 98 06/04/18 20:30 97 06/04/18 20:23 97 06/04/18 20:15 97 06/04/18 20:01 98 06/04/18 20:00 97 06/04/18 19:45 96 06/04/18 19:30 97 06/04/18 19:15 97 06/04/18 19:00 99 06/04/18 18:00 97 06/04/18 17:15 28 L 06/04/18 17:00 97 06/04/18 16:45 96 06/04/18 16:41 97 06/04/18 16:30 98 06/04/18 16:21 98 06/04/18 16:15 98 06/04/18 16:00 97 06/04/18 15:00 97 06/04/18 14:00 98 06/04/18 13:00 98 06/04/18 12:00 98 06/04/18 11:00 99 06/04/18 10:00 100 06/04/18 09:00 100 06/04/18 08:00 100 06/04/18 07:00 100 06/04/18 06:00 100 06/04/18 05:45 100 06/04/18 05:40 100 06/04/18 05:35 100 06/04/18 05:30 100 06/04/18 05:25 100 06/04/18 05:20 100 06/04/18 05:16 100 06/04/18 05:15 100 06/04/18 05:10 100 06/04/18 05:05 100 06/04/18 05:00 100 06/04/18 04:56 100 06/04/18 04:45 100 06/04/18 04:30 100 06/04/18 04:15 100 06/04/18 04:00 06/04/18 03:45 100 06/04/18 03:30 100 06/04/18 03:15 100 06/04/18 03:03 100 06/04/18 03:00 100 06/04/18 02:45 100 06/04/18 02:30 100 06/04/18 02:15 100 06/04/18 02:00 100 06/04/18 01:47 100 06/04/18 01:45 100 06/04/18 01:30 99 06/04/18 01:15 100 06/04/18 01:00 100 06/04/18 00:45 100 06/04/18 00:30 99 06/04/18 00:15 100 06/04/18 00:03 99 06/04/18 00:00 06/03/18 23:26 97 06/03/18 23:20 97 06/03/18 23:15 97 06/03/18 23:10 99 06/03/18 23:00 99 06/03/18 22:50 99 06/03/18 22:45 99 06/03/18 22:40 99 06/03/18 22:30 99 06/03/18 22:20 99 06/03/18 22:15 99 06/03/18 22:10 100 06/03/18 22:00 100 06/03/18 21:50 100 06/03/18 21:45 99 06/03/18 21:40 100 06/03/18 21:30 100 06/03/18 21:20 100 06/03/18 21:15 100 06/03/18 21:10 99 06/03/18 21:05 100 06/03/18 21:04 100 06/03/18 20:50 96 06/03/18 20:45 99 06/03/18 20:41 100 06/03/18 20:30 100 06/03/18 20:20 99 06/03/18 20:15 100 06/03/18 19:50 100 09/29/18 19:40 06/03/18 19:30 06/03/18 19:20 06/03/18 19:10 06/03/18 19:00 06/03/18 18:50 06/03/18 18:40 06/03/18 18:30 06/03/18 18:20 06/03/18 18:09 06/03/18 17:50 06/03/18 17:44 06/03/18 17:30 06/03/18 17:25 06/03/18 17:22 06/03/18 17:18 88 L 06/03/18 17:00 05/11/18 07:00 04/27/18 12:00 General Limitations: Altered Mental Status General Appearance: In No Apparent Distress and Lethargic Head Head Exam: Normal Inspection, Atraumatic and Normocephalic Head Exam Physical: Other (NONE REPORTED.) Eyes Eye exam: Normal Appearance, PERRL and Scleral Icterus; negative Conjunctival Injection Pupils: Regular, Round: Bilateral and Reactive: Bilateral ENT ENT Exam: Normal Exam, Normal Oropharynx, Normal External Ear Exam and TM's Normal Bilaterally External Ear Exam: Normal External Inspection TM/Canal Exam: Bilateral: Normal Nose Exam: Normal Nose Exam and Other (NO EPISTAXIS) Mouth Exam: Normal Inspection Throat Exam: Tonsillar Erythema; negative Tonsillomegaly and Tonsillar Exudate Neck Neck Exam: Normal Inspection and Trachea Midline Chest Chest Inspection: Normal Inspection and Symmetric Chest Wall Rise Respiratory Respiratory Exam: Normal Lung Sounds Bilat Respiratory Exam: Bilateral: Wheezing and Bilateral: Rhonchi, Upper: Rhonchi and Lower: Wheezing and Lower: Rhonchi Cardiovascular Cardiovascular Exam: Regular Rate and Normal Rhythm Abdominal Exam Abdominal Exam: Normal Inspection, Normal Bowel Sounds, Soft and Tenderness Abdominal Tenderness: Diffuse and Mild Extremities Extremities Exam: Normal Inspection and Edema (TRACE EDEMA.) Back Back Exam: Normal Inspection Neurological Neurological Exam: Alert and Oriented X3; negative Motor Sensory Deficit Patient Oriented To: Person (DISORIENTED GLUCOSE INCREASE, MORE ALERT AND ORIENTED.) Speech: Fluid Speech (AFTER GLUCOSE CORRECTED.) Cranial Nerve Exam: Gag reflex (XI): Normal Upper Motor Neuron Exam: Babinski Sign: Normal Psychological Psychiatric Exam: Depressed and Anxious Skin Skin Exam: Dry MDM Additional Information Obtained Additional Information Obtained From: Family Differential Diagnosis Metabolic: Dehydration, Hypercalcemia, Hypernatremia, Hypoglycemia, Hyponatremia and Hypoxemia Structural: CVA (HEPATIC ENCEPHALOPATHYN, RENAL FAILURE.) Infectious: Sepsis and UTI COURSE Treatment Treatment: SEE ORDERS. IV FLUIDS, DOPAMINE DRIP AND D50 IV IN ED. Consultation Consultation Comments: DR. MARQUEZ WILL ADMIT PATIENT. Education/Counseling Education/Counseling: Family Educated On: Diagnosis ROR Labs Reviewed Laboratory Results Reviewed?: Yes Result Diagrams: 06/06/18 05:47 06/06/18 05:47 Laboratory: 06/03/18 19:20 Blood Blood Culture - Final 06/03/18 18:39 Blood Blood Culture - Final Klebsiella Pneumoniae WBC 31.8 X10^3/uL (3.6-10.0) H* D 06/06/18 05:47 RBC 4.22 X10^6/uL (4.7-6.0) L 06/06/18 05:47 Hgb 14.0 g/dL (13.5-18.0) D 06/06/18 05:47 Hct 41.4 % (42.0-54.0) L 06/06/18 05:47 MCV 98.1 fL (80.0-100.0) 06/06/18 05:47 MCH 33.2 pg (27.0-34.0) 06/06/18 05:47 MCHC 33.9 g/dL (33.0-35.0) 06/06/18 05:47 RDW 22.1 % (11.6-16.5) H 06/06/18 05:47 Plt Count 55 X10^3/uL (150.0-450.0) L 06/06/18 05:47 Plt Count Comment Decreased (ADEQUATE) 06/06/18 05:47 MPV 9.5 fL (7.4-11.0) 06/06/18 05:47 Neut % (Auto) 85.5 % (42.0-75.0) H 06/06/18 05:47 Lymph % (Auto) 6.2 % (21.0-51.0) L 06/06/18 05:47 [place] % (Auto) 7.8 % (0.0-13.0) 06/06/18 05:47 Eos % (Auto) 0.1 % (0.9-2.9) L 06/06/18 05:47 Baso % (Auto) 0.4 % (0.2-1.0) 06/06/18 05:47 Neut # (Auto) 20.4 x10^3/uL (2.2-4.8) H 06/06/18 05:47 Lymph # (Auto) 1.5 X10^3/uL (1.3-2.9) 06/06/18 05:47 [place] # (Auto) 1.9 x10^3/uL (0.3-0.8) H 06/06/18 05:47 Eos # (Auto) 0.0 x10^3/uL (0.0-0.2) 06/06/18 05:47 Baso # (Auto) 0.1 X10^3/uL (0.0-0.1) 06/06/18 05:47 Absolute Nucleated RBC 0.3 /100WBC 06/06/18 05:47 Total Counted 100 06/06/18 05:47 Neutrophils % (Manual) 74 % (39-76) 06/06/18 05:47 Band Neutrophils % 13 % (0-10) H 06/06/18 05:47 Lymphocytes % (Manual) 6 % (13-43) L 06/06/18 05:47 Monocytes % (Manual) 2 % (4-9) L 06/06/18 05:47 Metamyelocytes % 5 06/06/18 05:47 Plt Morphology Comment Normal (NORMAL) 06/06/18 05:47 RBC Morphology Abnormal (NORMAL) 06/06/18 05:47 Dimorphic RBCs Slight 06/06/18 05:47 Polychromasia Slight 06/04/18 12:50 Hypochromasia Slight A 06/04/18 12:50 Poikilocytosis 3+ A 06/04/18 12:50 Anisocytosis 2+ A 06/06/18 05:47 Macrocytosis 1+ A 06/04/18 12:50 Crenated Cell 1+ A 06/06/18 05:47 INR Target Range - 06/05/18 05:38 INR 6.95 (0.8-1.3) H* 06/05/18 05:38 APTT 59.2 SECONDS (22.9-36.5) H 06/05/18 05:38 PTT Comment - 06/05/18 05:38 Sample Site Lb 06/05/18 05:32 ABG pH 7.460 (7.35-7.45) H 06/05/18 05:32 ABG pCO2 27.0 mmHg (35.0-45.0) L 06/05/18 05:32 ABG pO2 55.0 mmHg (80.0-100.0) L 06/05/18 05:32 ABG HCO3 19.2 mmol/L (22-26) L 06/05/18 05:32 ABG O2 Saturation 90.0 % (90-100) 06/05/18 05:32 ABG Base Excess -3.4 mmol/L (-2.0-2.0) L 06/05/18 05:32 Dileep Test N/a 06/05/18 05:32 A-a Gradient 61.0 mmHg 06/05/18 05:32 FiO2 21 06/05/18 05:32 Blood Gas Comments Sarah well ae 06/05/18 05:32 Sodium 128 mmol/L (136-145) L 06/06/18 05:47 Corrected Sodium 128 mmol/L (136-145) L 06/06/18 05:47 Potassium 6.5 mmol/L (3.5-5.1) H* 06/06/18 05:47 Chloride 103 mmol/L (98-107) 06/06/18 05:47 Carbon Dioxide 13.7 mmol/L (21-32) L* 06/06/18 05:47 BUN 38 mg/dL (7-18) H 06/06/18 05:47 Creatinine 3.25 mg/dL (0.70-1.30) H 06/06/18 05:47 Est GFR (MDRD) Af Amer 26 (>60) L 06/06/18 05:47 Est GFR (MDRD) Non-Af 22 (>60) L 06/06/18 05:47 Glucose 112 mg/dL (65-99) H 06/06/18 05:47 POC Glucose (mg/dL) 117 mg/dL (65-99) H 06/06/18 07:46 Lactic Acid 16.9 mmol/L (0.4-2.0) H 06/03/18 17:11 Calcium 6.9 mg/dL (8.5-10.1) L 06/06/18 05:47 Corrected Calcium 9.0 mg/dL (8.5-10.1) 06/06/18 05:47 Magnesium 1.8 mg/dL (1.7-2.9) 06/04/18 12:50 Total Bilirubin 11.60 mg/dL (0.2-1.0) H 06/06/18 05:47 AST 990 Units/L (15-37) H 06/06/18 05:47 ALT 271 Units/L (12-78) H 06/06/18 05:47 Alkaline Phosphatase 171 Units/L (46-116) H 06/06/18 05:47 Ammonia 110 umol/L (11-32) H 06/06/18 05:47 Creatine Kinase 178 Units/L (39-308) 06/04/18 12:50 CK-MB (CK-2) 9.5 ng/mL (0-4.0) H* 06/04/18 12:50 CK/CKMB % Calc 5.3 % (<4) 06/04/18 12:50 Troponin I 0.28 ng/mL (0-1.5) 06/04/18 12:50 Total Protein 7.4 g/dL (6.4-8.2) 06/06/18 05:47 Albumin 1.4 g/dL (3.4-5.0) L 06/06/18 05:47 Globulin 6.0 g/dL (2.5-4.5) H 06/06/18 05:47 Albumin/Globulin Ratio 0.2 Ratio (1.1-2.1) L 06/06/18 05:47 Specimen Type Catherized urine 06/03/18 17:30 Urine Color [place] (YELLOW) 06/03/18 17:30 Urine Appearance Clear (CLEAR) 06/03/18 17:30 Urine pH 5.0 (5.0 - 8.0) 06/03/18 17:30 Ur Specific [place] 1.015 (1.000-1.030) 06/03/18 17:30 Urine Protein 1+ (NEGATIVE) 06/03/18 17:30 Urine Glucose (UA) Negative (NEGATIVE) 06/03/18 17:30 Urine Ketones 1+ (NEGATIVE) 06/03/18 17:30 Urine Occult Blood 1+ (NEGATIVE) 06/03/18 17:30 Urine Nitrite Positive (NEGATIVE) 06/03/18 17:30 Urine Bilirubin Negative (NEGATIVE) 06/03/18 17:30 Urine Urobilinogen Normal (NORMAL) 06/03/18 17:30 Ur Leukocyte Esterase 1+ (NEGATIVE) 06/03/18 17:30 Urine RBC 0-2 /HPF (NONE SEEN) 06/03/18 17:30 Urine WBC 0-2 /HPF (NONE SEEN) 06/03/18 17:30 Ur Squamous Epith Cells Rare /HPF (NEGATIVE) 06/03/18 17:30 Amorphous Sediment 1+ /HPF (NEGATIVE) 06/03/18 17:30 Urine Bacteria Negative /HPF (NEGATIVE) 06/03/18 17:30 Hyaline Casts Few /LPF (NEGATIVE) 06/03/18 17:30 Urine Mucus Moderate /HPF (NEGATIVE) 06/03/18 17:30 Ur Culture Indicated? No/not indicated 06/03/18 17:30 Blood Type O POSITIVE 06/03/18 18:39 Antibody Screen Negative 06/03/18 18:39 Crossmatch See Detail 06/03/18 18:39 XRAY XRAY Interpreted by: Radiologist XRAY Findings: REPORT DISCUSS WITH PATIENT AND . EKG Perry: Normal Rhythm: NSR Diagnosis Discharge Problem: Encephalopathy, hepatic, Acute hypotension Altered mental state Qualifiers: Altered mental status type: transient alteration of awareness Qualified Code(s): R40.4 - Transient alteration of awareness Sepsis Qualifiers: Sepsis type: sepsis due to unspecified organism Qualified Code(s): A41.9 - Sepsis, unspecified organism UTI (urinary tract infection) Qualifiers: Urinary tract infection type: site unspecified Hematuria presence: with hematuria Qualified Code(s): N39.0 - Urinary tract infection, site not specified GI bleed Qualifiers: GI bleed type/associated pathology: unspecified gastrointestinal hemorrhage type Qualified Code(s): K92.2 - Gastrointestinal hemorrhage, unspecified Renal failure Qualifiers: Renal failure chronicity: acute on chronic Acute renal failure type: unspecified Chronic kidney disease stage: unspecified stage Qualified Code(s): N17.9 - Acute kidney failure, unspecified
[2018-06-03 19:25] LABS: LACTIC ACID 16.9 mmol/L (0.4-2.0)
[2018-06-03 19:46] LABS: WHITE BLOOD COUNT 37.1 X10^3/uL (3.6-10.0)
[2018-06-03 19:47] LABS: BAND NEUTROPHILS % 4 % (0-10)
[2018-06-03 19:48] LABS: HYPOCHROMASIA SLIGHT; PLATELET MORPHOLOGY COMMENT NORMAL (NORMAL); POIKILOCYTOSIS 3+; POLYCHROMASIA SLIGHT
[2018-06-03 19:49] LABS: ANISOCYTOSIS 3+
[2018-06-03] MEDS: DOPAMINE IV PREMIX 400 MG/250 ML 400 MG/250 ML BAG IV PRN (20:20)
[2018-06-03] MEDS ORDERED: AQUA-MEPHYTON ADULT INJ SC ONE (20:33)
[2018-06-03] MEDS ORDERED: KAYEXALATE SUSP PO ONE (20:34)
[2018-06-03] MEDS ORDERED: SODIUM BICARBONATE 8.4% INJ ADULT IVP ONE (20:34)
[2018-06-03] MEDS ORDERED: SODIUM BICARBONATE 8.4% INJ ADULT ONE (20:42)
[2018-06-03] MEDS ORDERED: AQUA-MEPHYTON ADULT INJ ONE (20:42)
[2018-06-03 21:07] LABS: ABG BASE EXCESS -12.3 mmol/L (-2.0-2.0)
[2018-06-03 21:08] LABS: ABG HCO3 11.9 mmol/L (22-26); FRACTIONATED INSPIRED OXYGEN 21
[2018-06-03 21:09] LABS: ABG ALLEN TEST POS
[2018-06-03] MEDS ORDERED: ZOFRAN INJ 4 MG VIAL ONE (21:19)
[2018-06-03] MEDS ORDERED: ZOFRAN INJ 4 MG VIAL IVP ONE (21:23)
--- NOTE | 2018-06-03 21:25 | CT ---
HISTORY: Altered mental status for 2 days. Study: CT brain without contrast Comparison: CT head dated April 13, 2018. Technique: Multiple axial images of the brain were obtained from the skull base to the vertex without administra tion of IV contrast. Dose reduction techniques including Automated Exposure Control (AEC) and adjust ment of mA and kV were utilized. Findings: No acute intraparenchymal hemorrhage or mass can be identified. No extra-axial fluid collections are seen. No alteration in the attenuation of the brain parenchyma can be identified to suggest acute o r subacute ischemic change. The ventricular system is symmetric and nondilated. The extracranial st ructures are grossly unremarkable. IMPRESSION: No acute intracranial pathology. Reported By:
[2018-06-04 00:02] LABS: BLOOD UREA NITROGEN 24 mg/dL (7-18); CALCIUM 8.5 mg/dL (8.5-10.1); CHLORIDE 98 mmol/L (98-107); CKMB % 4.9 % (<4); CREATINE KINASE 174 Units/L (39-308); CREATININE 4.21 mg/dL (0.70-1.30); SODIUM 131 mmol/L (136-145); TROPONIN I 0.22 ng/mL (0-1.5); eGFR NON BLACK RACES 16 (>60)
[2018-06-04 00:05] LABS: CREATINE KINASE MB 8.6 ng/mL (0-4.0)
[2018-06-04] MEDS ORDERED: ROCEPHIN VIAL 1 GRAM IVP SCH (00:30)
[2018-06-04] MEDS ORDERED: MERREM VIAL ONE ×2 (00:41→05:10)
[2018-06-04] MEDS ORDERED: NS 100 ML IV + SPIKE MINIBAG* 100 ML IV ONE ×2 (00:41→05:09)
[2018-06-04] MEDS: MERREM VIAL 500 MG in NS 100 ML IV + SPIKE MINIBAG* 100 ML IV SCH ×3 (00:50→20:44)
[2018-06-04] MEDS: DOPAMINE IV PREMIX 400 MG/250 ML 400 MG/250 ML BAG IV PRN ×5 (02:32→22:33)
[2018-06-04] MEDS: D5 NS 1000 ML 1,000 ML IV SCH ×3 (02:32→18:45)
[2018-06-04 03:17] VITALS: BMI 29.5
[2018-06-04] MEDS: OTBS NS XX SCH ×6 (04:10→22:32)
[2018-06-04] MEDS ORDERED: NS 100 ML IV 100 ML IV ONE (04:13)
[2018-06-04] MEDS ORDERED: PROTONIX INJ 40 MG VIAL ONE (04:13)
[2018-06-04] MEDS: PROTONIX INJ 40 MG VIAL 80 MG in NS 100 ML IV 80 ML IV SCH ×2 (04:21→17:39)
[2018-06-04] MEDS: ZOFRAN INJ 4 MG VIAL IVP PRN ×2 (05:39→18:35)
[2018-06-04] MEDS ORDERED: NS 250 ML IV 250 ML IV ONE (07:48)
[2018-06-04] MEDS: DILAUDID INJ IVP PRN (09:45)
[2018-06-04] MEDS ORDERED: KAYEXALATE SUSP PO ONE (11:04)
[2018-06-04] MEDS ORDERED: XYLOCAINE 1 % (PLAIN) ONE (11:09)
--- NOTE | 2018-06-04 12:59 | RAD ---
Examination: AP chest History: Line placement Comparison 04/26/2018 Findings: Continued upper normal heart size. Interval improvement in aeration of the lungs since prio r study. Nonspecific vascular congestion with no evidence for pneumonia or pulmonary edema. A left-sided subclavian catheter is now present extending to the right atrium. No pneumothorax is see n. Impression: Borderline cardiomegaly with mild pulmonary vascular congestion. Central line catheter po sition as noted. Reported By:
--- NOTE | 2018-06-04 13:08 | DR.UPDATE ---
H&P Update History and Physical Update: History and Physical reviewed and patient examined. Changes noted: NO Yes with the following:agree with h&p from Dr Chadwick. will place picc for vasoactive gtts, iv fluids, and lab draws as pt is a very difficult stick. Procedures (ALL) - Central Line Placement PCM.CLCO: written consent (from ) Time out performed: Yes Patient placed pm monitor/pulse ox: Yes MD prep: mask, gown, gloves, other Centrial line prep: chlorhexidine scrub Local anesthsia used: lidocane 1% (1cc) Ultrasound used for placement: Yes (left basilc vein id'd via u/s) Central line lumen ininserted: double (5Fr powerpicc. trimmed to 45cm with 0cm exposed) Post procedure: good blood return, all ports aspirated, flushed,capped, sterile dressing applied Post procedure xray: tip oc catheter in good position (to the RA per radiologist ) Patient tolerated procedure: Yes Complications: none
[2018-06-04 13:10] LABS: BASOPHILS # (AUTO) 0.2 X10^3/uL (0.0-0.1); BASOPHILS % (AUTO) 0.7 % (0.2-1.0); EOSINOPHILS # (AUTO) 0.4 x10^3/uL (0.0-0.2); EOSINOPHILS % (AUTO) 1.4 % (0.9-2.9); HEMATOCRIT 30.9 % (42.0-54.0); HEMOGLOBIN 10.3 g/dL (13.5-18.0); LYMPHOCYTES # (AUTO) 0.9 X10^3/uL (1.3-2.9); LYMPHOCYTES % (AUTO) 3.2 % (21.0-51.0); MEAN CORPUSCULAR HEMOGLOBIN 34.1 pg (27.0-34.0); MEAN CORPUSCULAR HGB CONC 33.5 g/dL (33.0-35.0); MEAN CORPUSCULAR VOLUME 101.9 fL (80.0-100.0); MEAN PLATELET VOLUME 8.4 fL (7.4-11.0); MONOCYTES % (AUTO) 3.5 % (0.0-13.0); NEUTROPHILS # (AUTO) 25.8 x10^3/uL (2.2-4.8); NEUTROPHILS % (AUTO) 91.2 % (42.0-75.0); PLATELET COUNT 92 X10^3/uL (150.0-450.0); RED BLOOD COUNT 3.03 X10^6/uL (4.7-6.0); RED CELL DISTRIBUTION WIDTH 21.8 % (11.6-16.5)
[2018-06-04 13:32] LABS: BAND NEUTROPHILS % 5 % (0-10)
[2018-06-04 13:33] LABS: PLATELET MORPHOLOGY COMMENT NORMAL (NORMAL)
[2018-06-04 13:34] LABS: ANISOCYTOSIS 3+; HYPOCHROMASIA SLIGHT; POIKILOCYTOSIS 3+; POLYCHROMASIA SLIGHT
[2018-06-04 13:49] LABS: ALBUMIN 1.7 g/dL (3.4-5.0); CALCIUM 7.7 mg/dL (8.5-10.1); CARBON DIOXIDE 19.4 mmol/L (21-32); CKMB % 5.3 % (<4); COR CA(FOR HYPOALB) 9.5 mg/dL (8.5-10.1); CREATININE 3.97 mg/dL (0.70-1.30); MAGNESIUM 1.8 mg/dL (1.7-2.9); TOTAL PROTEIN 6.9 g/dL (6.4-8.2); TROPONIN I 0.28 ng/mL (0-1.5)
[2018-06-04] MEDS: XIFAXAN PO SCH ×2 (13:51→20:44)
[2018-06-04 14:00] LABS: CREATINE KINASE MB 9.5 ng/mL (0-4.0)
[2018-06-04] MEDS ORDERED: NS 1000 ML 1,000 ML ONE (16:40)
[2018-06-04] MEDS: NS 1000 ML 1,000 ML IV ONE ×2 (16:45→17:40)
[2018-06-04] MEDS ORDERED: NS 1000 ML 1,000 ML IV ONE (17:39)
[2018-06-05] MEDS: DILAUDID INJ IVP PRN ×2 (01:55→07:45)
[2018-06-05] MEDS: DOPAMINE IV PREMIX 400 MG/250 ML 400 MG/250 ML BAG IV PRN ×6 (01:57→22:30)
[2018-06-05] MEDS: PROTONIX INJ 40 MG VIAL 80 MG in NS 100 ML IV 80 ML IV SCH ×3 (02:12→20:57)
[2018-06-05] MEDS: OTBS NS XX SCH (03:12)
[2018-06-05] MEDS: D5 NS 1000 ML 1,000 ML IV SCH ×5 (03:13→18:58)
[2018-06-05 05:46] LABS: ABG BASE EXCESS -3.4 mmol/L (-2.0-2.0); ABG HCO3 19.2 mmol/L (22-26); FRACTIONATED INSPIRED OXYGEN 21
[2018-06-05] MEDS ORDERED: D50W ABBOJECT SYR IV ONE (06:00)
[2018-06-05] MEDS ORDERED: D50W ABBOJECT SYR ONE (06:09)
[2018-06-05] MEDS ORDERED: DOPAMINE IV PREMIX 400 MG/250 ML 400 MG/250 ML BAG IV ONE (06:32)
[2018-06-05 06:48] LABS: BASOPHILS # (AUTO) 0.2 X10^3/uL (0.0-0.1); EOSINOPHILS % (AUTO) 0.1 % (0.9-2.9); HEMATOCRIT 33.5 % (42.0-54.0); HEMOGLOBIN 11.3 g/dL (13.5-18.0); LYMPHOCYTES # (AUTO) 0.8 X10^3/uL (1.3-2.9); LYMPHOCYTES % (AUTO) 4.4 % (21.0-51.0); MEAN CORPUSCULAR HEMOGLOBIN 33.4 pg (27.0-34.0); MEAN CORPUSCULAR HGB CONC 33.8 g/dL (33.0-35.0); MEAN CORPUSCULAR VOLUME 98.8 fL (80.0-100.0); MEAN PLATELET VOLUME 9.1 fL (7.4-11.0); MONOCYTES # (AUTO) 1.1 x10^3/uL (0.3-0.8); MONOCYTES % (AUTO) 5.8 % (0.0-13.0); NEUTROPHILS # (AUTO) 16.1 x10^3/uL (2.2-4.8); NEUTROPHILS % (AUTO) 88.7 % (42.0-75.0); PLATELET COUNT 56 X10^3/uL (150.0-450.0); RED BLOOD COUNT 3.39 X10^6/uL (4.7-6.0); RED CELL DISTRIBUTION WIDTH 22.7 % (11.6-16.5)
[2018-06-05 07:09] LABS: WHITE BLOOD COUNT 21.5 X10^3/uL (3.6-10.0)
[2018-06-05 07:10] LABS: BAND NEUTROPHILS % 9 % (0-10); METAMYELOCYTES % 3; PLATELET MORPHOLOGY COMMENT NORMAL (NORMAL)
[2018-06-05 07:11] LABS: ANISOCYTOSIS 2+
[2018-06-05 07:12] LABS: CRENATED RBC NOTED
[2018-06-05 07:13] LABS: CALCIUM 7.1 mg/dL (8.5-10.1); CARBON DIOXIDE 21.2 mmol/L (21-32); CREATININE 3.48 mg/dL (0.70-1.30)
[2018-06-05 07:15] LABS: ALBUMIN 1.7 g/dL (3.4-5.0); COR CA(FOR HYPOALB) 8.9 mg/dL (8.5-10.1); TOTAL PROTEIN 6.8 g/dL (6.4-8.2)
[2018-06-05] MEDS: XIFAXAN PO SCH ×2 (08:12→20:58)
[2018-06-05] MEDS: MERREM VIAL 500 MG in NS 100 ML IV + SPIKE MINIBAG* 100 ML IV SCH ×2 (08:35→20:57)
[2018-06-05] MEDS: CHRONULAC PO SCH ×2 (13:44→21:02)
[2018-06-05] MEDS ORDERED: LACRI-LUBE S.O.P. ONE (13:48)
[2018-06-05] MEDS: LACRI-LUBE S.O.P. AFFEYE PRN (13:59)
--- NOTE | 2018-06-05 14:15 | RAD ---
HISTORY: NG tube placement Study: KUB Comparison: None Findings: There is nasogastric tube with its tip and side hole well within the stomach. The abdominal gas patte rn is nonspecific. IMPRESSION: NG tube tip and side hole well within the stomach Reported By:
[2018-06-06] MEDS: D5 NS 1000 ML 1,000 ML IV SCH ×3 (02:10→18:04)
[2018-06-06] MEDS: DOPAMINE IV PREMIX 400 MG/250 ML 400 MG/250 ML BAG IV PRN ×3 (03:23→16:36)
[2018-06-06] MEDS: CHRONULAC PO SCH ×4 (05:05→21:14)
[2018-06-06 06:07] LABS: BASOPHILS # (AUTO) 0.1 X10^3/uL (0.0-0.1); BASOPHILS % (AUTO) 0.4 % (0.2-1.0); EOSINOPHILS % (AUTO) 0.1 % (0.9-2.9); HEMATOCRIT 41.4 % (42.0-54.0); LYMPHOCYTES # (AUTO) 1.5 X10^3/uL (1.3-2.9); LYMPHOCYTES % (AUTO) 6.2 % (21.0-51.0); MEAN CORPUSCULAR HEMOGLOBIN 33.2 pg (27.0-34.0); MEAN CORPUSCULAR HGB CONC 33.9 g/dL (33.0-35.0); MEAN CORPUSCULAR VOLUME 98.1 fL (80.0-100.0); MEAN PLATELET VOLUME 9.5 fL (7.4-11.0); MONOCYTES # (AUTO) 1.9 x10^3/uL (0.3-0.8); MONOCYTES % (AUTO) 7.8 % (0.0-13.0); NEUTROPHILS # (AUTO) 20.4 x10^3/uL (2.2-4.8); NEUTROPHILS % (AUTO) 85.5 % (42.0-75.0); PLATELET COUNT 55 X10^3/uL (150.0-450.0); RED BLOOD COUNT 4.22 X10^6/uL (4.7-6.0); RED CELL DISTRIBUTION WIDTH 22.1 % (11.6-16.5)
[2018-06-06 06:25] LABS: ALBUMIN 1.4 g/dL (3.4-5.0); CALCIUM 6.9 mg/dL (8.5-10.1); CREATININE 3.25 mg/dL (0.70-1.30); TOTAL PROTEIN 7.4 g/dL (6.4-8.2)
[2018-06-06 06:48] LABS: CARBON DIOXIDE 13.7 mmol/L (21-32); WHITE BLOOD COUNT 31.8 X10^3/uL (3.6-10.0)
[2018-06-06 06:54] LABS: BAND NEUTROPHILS % 13 % (0-10)
[2018-06-06 06:55] LABS: METAMYELOCYTES % 5; PLATELET MORPHOLOGY COMMENT NORMAL (NORMAL)
[2018-06-06 06:56] LABS: ANISOCYTOSIS 2+; CRENATED RBC 1+
[2018-06-06] MEDS: XIFAXAN PO SCH ×2 (08:01→21:14)
[2018-06-06] MEDS: MERREM VIAL 500 MG in NS 100 ML IV + SPIKE MINIBAG* 100 ML IV SCH ×2 (08:40→21:14)
[2018-06-06] MEDS ORDERED: ROCEPHIN VIAL 1 GRAM IVP SCH (09:00)
[2018-06-06] MEDS: LACRI-LUBE S.O.P. AFFEYE PRN (10:11)
[2018-06-06] MEDS ORDERED: NS 100 ML IV + SPIKE MINIBAG* 100 ML IV ONE (10:18)
[2018-06-06] MEDS: ALBUMIN HUMAN 25%- 100 ML 100 ML IV SCH ×2 (10:26→21:13)
[2018-06-06] MEDS: KAYEXALATE SUSP PO SCH ×3 (10:31→21:14)
--- NOTE | 2018-06-06 11:09 | RAD ---
History: Acute respiratory distress Study: AP chest Comparison: June 04 Findings: There is very limited inspiration of the lungs. The right lung appears overall clear. There is streaky diffuse density in the left lung. The heart size is accentuated. There is an unchanged left-sided PICC line and nasogastric tube is present entering the stomach. Impression: Extremely limited inspiration with streaky density diffusely in the left lung that may represent a pn eumonitis. Reported By:
[2018-06-06] MEDS: PROTONIX INJ 40 MG VIAL 80 MG in NS 100 ML IV 80 ML IV SCH ×2 (11:38→21:13)
[2018-06-06] MEDS ORDERED: NS 1000 ML 1,000 ML ONE (20:16)
[2018-06-06 21:22] VITALS: BP 92/55
== END 2018-06-07 01:39 | disposition expired | DRG 314 ==
LOC: ER 16:57 → ICU 22:38
PROVIDERS: ADMIT Obstetrics & Gynecology Obstetrics; ATTEND Obstetrics & Gynecology Obstetrics
DX: E11.649 Type 2 diabetes mellitus with hypoglycemia without coma; A41.89 Other specified sepsis; E78.2 Mixed hyperlipidemia; B96.1 Klebsiella pneumoniae [K. pneumoniae] as the cause of diseases classified elsewhere; R41.82 Altered mental status, unspecified; I95.89 Other hypotension; Z66 Do not resuscitate; K21.9 Gastro-esophageal reflux disease without esophagitis; N39.0 Urinary tract infection, site not specified; E87.5 Hyperkalemia; R94.31 Abnormal electrocardiogram [ECG] [EKG]; K92.2 Gastrointestinal hemorrhage, unspecified; K72.90 Hepatic failure, unspecified without coma; N19 Unspecified kidney failure; K74.69 Other cirrhosis of liver
CPT/HCPCS: 36415; 36430; 36569; 36600; 51702; 70450; 71010; 71045; 74000; 74018; 80048; 80053; 81001; 82140; 82550; 82553; 82803; 83605; 83735; 84132; 84484; 85025; 85610; 85730; 86850; 86900; 86901; 86922; 87040; 87077; 87186; 93005; 93010; 93041; 96365; 96367; 96372; 96374; 96375; 99284; 99285; A4222; C9113; P9016; P9017; P9047; J0696; J1170; J1265; J2185; J2405; J3430; J3490; J7030; J7042; J7050